=== PATIENT | male | born 1945 | race African-American/Black ===

== ENCOUNTER → 2016-12-18 | Outpatient (CLI) | payer MEDICARE ==
--- NOTE | 2016-12-18 16:03 | REP ---
LUMBAR SPINE, SEVEN VIEWS: HISTORY: Back pain. There is no acute fracture. The intervertebral discs are decreased in height. Vacuum phenomenon is present at the L5-S1 level. These findings are consistent with disc degeneration. Osteophytes are present on L2 through S1. There is narrowing of the L4-5 and L5-S1 facet joints. There are 5 mm of grade 1 spondylolisthesis of L4 on 5. IMPRESSION: Degenerative change as described above. Signed by Leandro Ch MD 12/18/2016 04:06 P
== END ==
LOC: M SMT 15:06
PROVIDERS: ATTEND Physician Assistant
DX: M51.36 Other intervertebral disc degeneration, lumbar region (principal)

== ENCOUNTER → 2016-12-26 | Outpatient (CLI) | payer MEDICARE, BC ==
[2016-12-26 13:38] LABS: BLOOD UREA NITROGEN 9 MG/DL (7-18); CREATININE FOR GFR 0.93 MG/DL (0.70-1.30); GLOMERULAR FILTRATION RATE > 60.0 (>42)
== END ==
LOC: M LAB 11:53
PROVIDERS: ATTEND Otolaryngology
DX: D37.01 Neoplasm of uncertain behavior of lip (principal)

== ENCOUNTER → 2017-01-02 | Outpatient (CLI) | payer MEDICARE, BC ==
[~2017-01-02] MED LIST: ISOVUE-370 76% 100ML VIAL (Q9967) As Ordered ONE
--- NOTE | 2017-01-02 17:13 | REP ---
CT NECK WITH CONTRAST: HISTORY: Neoplasm. CONTRAST: Isovue-370/75 mL. A well-circumscribed oval hypodense lesion of fat density is present in the soft-tissue along the buccal surface of the anterior right mandible. This is most consistent with a lipoma. The lipoma measures 1.7 cm in transverse x 1.1 cm in AP dimensions. The surrounding tissue planes are intact. Calcification is present in the left tonsil. This is secondary to previous inflammatory disease. The naso- and hypopharynx, larynx, and subglottic trachea are normal in appearance. The salivary glands are normal. The right thyroid lobe is heterogenous in density. The left thyroid lobe is normal. A lipoma is present in the posterior subcutaneous tissue overlying the left occipital bone. The lipoma measures 4.5 cm in tranverse x 1.9 cm in AP x 5.1 cm in cephalocaudal dimensions. Small lymph nodes less than 1 cm in size are present in the internal jugular chains, posterior triangles, submandibular and submental area. There is no adenopathy. Atherosclerotic calcifications is present at the left carotid bifurcation. Degenerative change is present in the cervical spine. The lung apices are clear. The visualized sinuses are clear. IMPRESSION: 1. There is an oval well-circumscribed mass consistent with a lipoma in the subcutaneous tissue along the buccal surface of the anterior right mandible. 2. There is a lipoma in the subcutaneous tissue overlying the left occipital bone. Signed by Leandro Ch MD 01/03/2017 08:28 A
== END ==
LOC: M RAD 16:11
PROVIDERS: ATTEND Otolaryngology
DX: D17.9 Benign lipomatous neoplasm, unspecified (principal)
CPT/HCPCS: 70491; Q9967

== ENCOUNTER → 2017-01-19 | Outpatient (CLI) | payer MEDICARE, BC ==
--- NOTE | 2017-01-19 17:04 | REP ---
MR LUMBAR SPINE WITHOUT AND WITH CONTRAST: HISTORY: Post-laminectomy syndrome. CONTRAST: ProHance 10 mL, decreased signal intensity on T2 weighted images is present in the lumbar vertebral discs. The discs are decreased in height. These findings are consistent with disc degeneration. There is no disc bulge or herniation at the L1-2 and L2-3 levels. The nerves exit the neural foramina without compression. A diffuse disc bulge is present at the L3-4 level. There is minimal compression of the thecal sac. There is hypertrophy of the posterior articulating facets. The L3 nerves exit the neural foramina without compression. A diffuse disc bulge is present at the L4-5 level. There is hypertrophy of the ligamenta flava and posterior articulating facets. There are 5 mm of grade 1 spondylolisthesis of L4 on 5. These findings produce mild central canal stenosis. The L4 nerves exit the neural foramina without compression. A diffuse disc bulge is present at the L5-S1 level. There is minimal compression of the thecal sac. There is hypertrophy of the posterior articulating facets. The L5 nerves exit the neural foramina without compression. The conus medullaris is normal in appearance terminating at the level of the L1-2 intervertebral discs. Increased signal intensity on T2 weighted images is present at the endplate of the L5-S1 vertebral bodies. There is minimal enhancement of the endplates and at the vertebral discs. This represents degenerative changes. There is atrophy of the posterior spinal musculature at the L4-S1 levels. IMPRESSION: 1. Diffuse disc bulge at the L3-4 level with minimal thecal sac compression. 2. Mild central canal stenosis at the L4-5 level secondary to disc bulge, ligamentous and facet hypertrophy. 3. Diffuse disc bulge at the L5-S1 level with minimal thecal sac compression. There is compression of the L5-nerves in the neural foramina. Unreviewed
== END ==
LOC: M RAD 14:14
PROVIDERS: ATTEND Nurse Practitioner Family
DX: M43.16 Spondylolisthesis, lumbar region (principal); M46.1 Sacroiliitis, not elsewhere classified; M54.16 Radiculopathy, lumbar region; M96.1 Postlaminectomy syndrome, not elsewhere classified; M47.817 Spondylosis without myelopathy or radiculopathy, lumbosacral region; M51.36 Other intervertebral disc degeneration, lumbar region
CPT/HCPCS: 72158; A9576

== ENCOUNTER → 2017-01-31 | Day surgery (SDC) | payer MEDICARE, BC ==
[~2017-01-31] VITALS: Ht 175.3 cm; Wt 83.9 kg
[~2017-01-31] MED LIST changes: +ACET-71 PO; +BACITRACIN OINT 30GM As Ordered ONE; +GLYCOPYRROLATE INJ 0.2 MG/ML 2 ML VIAL As Ordered ONE; -ISOVUE-370 76% 100ML VIAL (Q9967) As Ordered ONE; +LIDOCAINE 2% INJ 100 MG/5 ML SDV (FOR ANES.) As Ordered ONE; +LIDOCAINE W/EPINEPHRINE 1% 20ML VIAL As Ordered ONE; +LR 1,000 ML IV SCH; +METOCLOPRAMIDE INJ 10MG/2ML VIAL (J2765) IV PRN; +MIDAZOLAM INJ 2 MG/2 ML VIAL (J2250) As Ordered ONE; +NEOSTIGMINE 1MG/ML 5 ML SYRINGE (J2710) As Ordered ONE; +ONDANSETRON 4MG/2ML VIAL (J2405) As Ordered ONE; +ONDANSETRON 4MG/2ML VIAL (J2405) IV PRN; +PERCOCET 5MG/325MG TAB PO PRN; +PHENYLephrine HCL 500 MCG/5 ML (100MCG/ML) SYRINGE (J2370) As Ordered ONE; +PROPOFOL 200 MG/20 ML VIAL As Ordered ONE; +ROCURONIUM BROMIDE 50 MG/5 ML VIAL As Ordered ONE; +dexameTHASONE 4 MG/ML 1ML VIAL (J1100) IV ONE; +ePHEDrine SULFATE 25 MG/5 ML(5MG/ML) SYRINGE As Ordered ONE; +fentaNYL 100 MCG/2 ML INJECTION (J3010) As Ordered ONE; +fentaNYL 100 MCG/2 ML INJECTION (J3010) IV PRN
[2017-01-31 16:28] VITALS: BP 154/78
--- NOTE | 2017-02-01 21:47 | RO ---
DATE OF PROCEDURE: 01/31/2017 PREOPERATIVE DIAGNOSIS: Right lower lip mass and left occipital mass. POSTOPERATIVE DIAGNOSIS: Right lower lip mass and left occipital mass. OPERATIVE PROCEDURE: 1. Excision of the left occipital mass. 2. Excision of the right lower lip mass. SURGEON: Tod Verduzco MD WOODWORKING CRAFTSMAN: ANESTHESIA: General. CLINICAL PREAMBLE: This 72-year-old man presented to the office complaining of a soft mobile mass on the inner aspect of the right lower lip that had been present for several months. CT scan of the neck confirmed presence of mass in the right lower lip as well as in the left occipital area most consistent with lipoma. Management options including surgery listed above have been discussed. The patient understood and consented to the procedure. DESCRIPTION OF OPERATION: The patient was identified in preholding and the right lower lip and the left occipital area marked. He was brought to the operating room in stable condition. In supine position on the operating room table, the patient received general anesthesia followed orotracheal intubation without incident. The patient was prepped and draped in the usual fashion for the procedure. The patient's body was then turned to the right side to expose the left occipital area. Precaution was taken to ensure padding around the head and neck as well as the rest of the torso area to avoid unnecessary pressure. The hair was then removed from the left occipital area. The left neck and the occiput area were then prepped and draped in the usual fashion for the procedure. A curvilinear incision was then fashioned over the left occipital mass area following a natural skin crease superior to the hairline. Dissection was then carried down to the subcutaneous plane where the lipomatous mass was encountered. Careful dissection was carried around the capsule of the lipoma to ensure block incision. Hemostasis was achieved. The wound was then closed in two layers. #4-0 Vicryl was used to close the deep layer of the wound to minimize the amount of space. The final skin closure was achieved using 4-0 Prolene suture. Bacitracin was then applied to the incision site followed by application of the Telfa dressing. The patient was then repositioned into a supine position to approach the right lower lip mass lesion. The right lower lip was everted. The mass was palpated. The mucosa overlying the mass then infiltrated with 1% lidocaine with 1:100,000 epinephrine. Mucosal incision was made. The lipomatous capsule was identified and carefully dissected out en bloc. Hemostasis was achieved using bipolar electrocautery. The deep layer was then closed using #4-0 Monocryl. The final mucosal incision was achieved using #4-0 Monocryl using the tapered needle as well. At the end of the procedure, sponge and instruments counts were correct. No complication was encountered. Estimated blood loss was less than 5 mL. General anesthesia was reversed and the patient was extubated and brought to the recovery room in stable condition.
== END | disposition home or self-care (01) ==
LOC: M SDC 09:50
PROVIDERS: ATTEND Otolaryngology
DX: D17.0 Benign lipomatous neoplasm of skin and subcutaneous tissue of head, face and neck (principal)
CPT/HCPCS: 21012; 88304; 88305; J1100; J2250; J2370; J2405; J2710; J3010

== ENCOUNTER 2017-12-26 13:36 | Outpatient (RCR) | payer MEDICARE, BC | END 2018-01-09 | LOC: M ST 13:36 | DX: Z51.89 Encounter for other specified aftercare (principal); R49.0 Dysphonia | CPT/HCPCS: 92524 ==

== ENCOUNTER 2018-01-11 14:22 | Outpatient (RCR) | payer MEDICARE, BC | END 2018-02-09 | LOC: M ST 14:22 | DX: Z51.89 Encounter for other specified aftercare (principal); R49.0 Dysphonia | CPT/HCPCS: 92507 ==

== ENCOUNTER → 2019-03-19 | Outpatient (CLI) | payer MEDICARE ==
[~2019-03-19] MED LIST changes: -ACET-71 PO; +ACET1TAB16 PO; -BACITRACIN OINT 30GM As Ordered ONE; -GLYCOPYRROLATE INJ 0.2 MG/ML 2 ML VIAL As Ordered ONE; -LIDOCAINE 2% INJ 100 MG/5 ML SDV (FOR ANES.) As Ordered ONE; -LIDOCAINE W/EPINEPHRINE 1% 20ML VIAL As Ordered ONE; -LR 1,000 ML IV SCH; -METOCLOPRAMIDE INJ 10MG/2ML VIAL (J2765) IV PRN; -MIDAZOLAM INJ 2 MG/2 ML VIAL (J2250) As Ordered ONE; -NEOSTIGMINE 1MG/ML 5 ML SYRINGE (J2710) As Ordered ONE; -ONDANSETRON 4MG/2ML VIAL (J2405) As Ordered ONE; -ONDANSETRON 4MG/2ML VIAL (J2405) IV PRN; -PERCOCET 5MG/325MG TAB PO PRN; -PHENYLephrine HCL 500 MCG/5 ML (100MCG/ML) SYRINGE (J2370) As Ordered ONE; -PROPOFOL 200 MG/20 ML VIAL As Ordered ONE; -ROCURONIUM BROMIDE 50 MG/5 ML VIAL As Ordered ONE; -dexameTHASONE 4 MG/ML 1ML VIAL (J1100) IV ONE; -ePHEDrine SULFATE 25 MG/5 ML(5MG/ML) SYRINGE As Ordered ONE; -fentaNYL 100 MCG/2 ML INJECTION (J3010) As Ordered ONE; -fentaNYL 100 MCG/2 ML INJECTION (J3010) IV PRN
[2019-03-19 10:47] LABS: BASO % 0.3 % (0.0-1.0); EOS # 0.4 10^3/uL (0.0-0.50); EOS % 5.8 % (0.0-3.0); HEMATOCRIT 48.6 % (42.0-52.0); HEMOGLOBIN 16.5 g/dl (13.5-17.5); LYMPH # 1.8 10^3/uL (1.5-4.5); LYMPH % 29.2 % (24.0-44.0); MEAN CORPUSCULAR HEMOGLOBIN 31.9 pg (27.0-33.0); MONO # 0.6 10^3/uL (0.0-0.8); NEUTROPHILS # 3.3 10^3/uL (1.8-7.7); NEUTROPHILS % 54.5 % (36.0-66.0); PLATELET COUNT, AUTOMATED 281 10^3/uL (150-450); RED BLOOD COUNT 5.17 10^6/uL (4.30-6.10)
[2019-03-19 11:14] LABS: ALBUMIN 4.2 GM/DL (3.2-5.2); ALT/SGPT 20 U/L (12-78); BILIRUBIN,TOTAL 1.4 MG/DL (0.2-1.0); BLOOD UREA NITROGEN 11 MG/DL (7-18); CALCIUM LEVEL 10.8 MG/DL (8.8-10.2); CARBON DIOXIDE LEVEL 30 MEQ/L (21-32); CHLORIDE LEVEL 104 MEQ/L (98-107); CHOLESTEROL LEVEL 210 MG/DL (<200); CHOLESTEROL RISK RATIO 3.134 (<5); CREATININE FOR GFR 0.96 MG/DL (0.70-1.30); FREE T4 1.16 NG/DL (0.76-1.46); GLOMERULAR FILTRATION RATE > 60.0 (>42); GLUCOSE, FASTING 87 MG/DL (70-100); HDL CHOLESTEROL 67 MG/DL (>40); LDL CHOLESTEROL 117 MG/DL (<100); NON-HDL-C 143 MG/DL; POTASSIUM SERUM 4.3 MEQ/L (3.5-5.1); SODIUM LEVEL 137 MEQ/L (136-145); TRIGLYCERIDES LEVEL 128 MG/DL (<150)
[2019-03-19 12:04] LABS: HEMOGLOBIN A1c 5.9 %
== END ==
LOC: M LAB 10:04
PROVIDERS: ATTEND Physician Assistant
DX: Z00.00 Encounter for general adult medical examination without abnormal findings (principal); K21.0 Gastro-esophageal reflux disease with esophagitis; E55.9 Vitamin D deficiency, unspecified; K26.9 Duodenal ulcer, unspecified as acute or chronic, without hemorrhage or perforation; E78.00 Pure hypercholesterolemia, unspecified
CPT/HCPCS: 36415; 80053; 80061; 82652; 83036; 84439; 84443; 85025; G0103

== ENCOUNTER 2019-10-25 20:18 | Emergency (ER) | payer MEDICARE ==
[~2019-10-25] VITALS: Ht 175.3 cm; Wt 81.8 kg
[2019-10-25] MEDS ORDERED: NITROGLYCERIN 0.4 MG SUBL TABLET SL PRN (20:30)
[2019-10-25] MEDS ORDERED: HEPARIN DRIP 25,000 UNITS in IV 1 EA IV SCH (20:35)
[2019-10-25 20:39] LABS: BASO % 0.3 % (0.0-1.0); EOS # 0.5 10^3/uL (0.0-0.5); EOS % 7.3 % (0.0-3.0); HEMATOCRIT 50.7 % (42.0-52.0); HEMOGLOBIN 16.9 g/dl (13.5-17.5); LYMPH # 1.6 10^3/uL (1.5-5.0); MEAN CORPUSCULAR HEMOGLOBIN 31.8 pg (27.0-33.0); MEAN CORPUSCULAR HGB CONC 33.3 g/dl (32.0-36.5); MEAN CORPUSCULAR VOLUME 95.3 fl (80.0-96.0); MONO # 0.6 10^3/uL (0.0-0.8); MONO % 9.1 % (0.0-5.0); NEUTROPHILS # 3.6 10^3/uL (1.5-8.5); PLATELET COUNT, AUTOMATED 289 10^3/uL (150-450); RED BLOOD COUNT 5.32 10^6/uL (4.30-6.10); WHITE BLOOD COUNT 6.3 10^3/uL (4.0-10.0)
[2019-10-25] MEDS ORDERED: TENECTEPLASE 50 MG KIT (TNKase) (J3101 PER 1MG) IV ONE (20:45)
[2019-10-25] MEDS ORDERED: CLOPIDOGREL 300 MG TAB (PLAVIX) PO ONE (20:45)
[2019-10-25] MEDS ORDERED: HEPARIN SOD (PORCINE) 5000 UNITS/ML VIAL IV ONE (20:45)
[2019-10-25 20:48] LABS: INR 1.01; PROTHROMBIN TIME 13.1 SECONDS (11.8-14.0)
[2019-10-25 21:04] LABS: ALBUMIN 3.7 GM/DL (3.2-5.2); BILIRUBIN,DIRECT 0.2 MG/DL (0.0-0.2); BILIRUBIN,TOTAL 1.1 MG/DL (0.2-1.0); CK-MB VALUE MASS 2.6 NG/ML (<3.6); MB/CK RELATIVE INDEX 1.02 (< OR =4); TOTAL PROTEIN 7.1 GM/DL (6.4-8.2); TROPONIN I 0.2 NG/ML (< 0.10)
[2019-10-25 21:08] VITALS: BP 152/95
[2019-10-25] MEDS: MORPHINE 2 MG/ML 1ML VIAL (J2270) IV PRN ×2 (21:09→21:34)
[2019-10-25] MEDS ORDERED: NITROGLYCERIN/D5W 100MCG/ML 25 MG in IV 1 EA IV SCH (21:13)
[2019-10-25] MEDS ORDERED: NITROGLYCERIN 2% OINT 1 GM *U/D* PKT TOP ONE (21:15)
[2019-10-25] MEDS ORDERED: NITROGLYCERIN IN D5W 25MG/250ML (100MCG/ML) As Ordered ONE (21:16)
[2019-10-25 21:41] VITALS: BP 113/72
--- NOTE | 2019-10-26 08:50 | REP ---
Portable chest x-ray: Sitting AP view. History: Chest pain. Findings: Monitoring electrodes are seen. The lungs are well inflated and free of infiltrate. Linear fibrosis is seen in the right base. There is a pleural line in the left perihilar region. There are degenerative changes in the thoracic spine. Heart size is normal. No infiltrate is seen. Impression: Linear fibrosis right base. No acute disease. Electronically Signed by Ángel Tillman MD 10/26/2019 08:42 A
--- NOTE | 2019-10-27 00:34 | ECGEPIP ---
[facility] - ED Test Date: 2019-10-25 Pat Name: LEA BURNS Department: Room: - Gender: Male Hall Director: edgar : 1945 Requested By: ADAN Carrera Order Number: [id number] Reading MD: Adan Jo Measurements Intervals [place] Rate: 82 P: 51 NH: 210 QRS: 43 QRSD: 96 T: -7 QT: 322 QTc: 377 Interpretive Statements SINUS RHYTHM WITH SINUS ARRHYTHMIA WITH FIRST DEGREE AV BLOCK ST ELEVATION, CONSIDER LATERAL INJURY ACUTE ME Electronically Signed on 10-27-2019 0:33:32 EST by Adan Jo
== END 2019-10-25 21:45 | disposition short-term general hospital (02) ==
LOC: M ED 20:18
DX: I21.3 ST elevation (STEMI) myocardial infarction of unspecified site (principal); I44.0 Atrioventricular block, first degree; E78.5 Hyperlipidemia, unspecified; Z82.49 Family history of ischemic heart disease and other diseases of the circulatory system
CPT/HCPCS: 71045; 80047; 80076; 82550; 82553; 83690; 84484; 85025; 85610; 93005; 93041; 94760; 96374; 96375; 99285; J2270; J3101

== ENCOUNTER 2019-12-10 14:04 | Outpatient (RCR) | payer OTHER ==
--- NOTE | 2019-12-05 13:49 | CARECAPL ---
Assessment Account #s: Initial Assessment General Diagnoses: Stent, STEMI Date of event: Oct 26, 2019 Physician: Anel Lau MD Allergies: Coded Allergies: No Known Allergies (Unverified , 11/17/19) Risk strat for cardiac event: High Exercise Assessment: Initial Assessment Stages of change: Pre-contemplation Exercise Prescription Plan Educate on cardiovascular disease and increase strength, endurance and flexibility through a monitored exercise program. Modalities initiated: Treadmill (will add 2.0 miles per hour for 10 minutes), Nustep (will add resistance of 1 for 10 minutes.), Arm Aerometer (will add resistance of 1 for 6 minutes), Dumbells (will add 1lb 1 set reps 8), Recumbent Bike (will add resistance of 1 for 5 minutes) Frequency: 2-3 Duration (Minutes) 30 - 60 minutes total exercise a day. 15 - 20 work intervals in minutes. PRN rest intervals in minutes. Functional Capacity Goal Sustained Metabolic Equivalent of a task (MET) goal of 2.5-3.5 for 15-20 minutes. Intensity: 3-Moderate Progression (METS) Increase by: 0.5 METS every: 3-5 sessions Angina with ex: No Target Heart Rate Rest +35-40 per beta luisa therapy. Resistance Training: Yes Weight (pounds): 1 Reps: 6-8 Medications Scheduled Aspirin (Aspirin), 81 MG PO DAILY, (Reported) Atorvastatin Calcium (Atorvastatin Calcium), 40 MG PO DAILY, (Reported) Cholecalciferol (Vitamin D3) (Vitamin D3), 2,000 UNIT PO DAILY, (Reported) Clopidogrel Bisulfate (Clopidogrel), 75 MG PO DAILY, (Reported) Folic Acid (Folic Acid), 1 MG PO DAILY, (Reported) Metoprolol Tartrate (Metoprolol Tartrate), 25 MG PO DAILY, (Reported) Pantoprazole Sodium (Pantoprazole Sodium), 40 MG PO DAILY, (Reported) Thiamine Mononitrate (Vit B1) (Vitamin B-1), 100 MG PO DAILY, (Reported) Scheduled PRN Acetaminophen (Acetaminophen), 500 MG PO Q6H PRN for PAIN, (Reported) Albuterol Sulfate (Ventolin Hfa), 2 PUFFS INH PRN PRN for WHEEZING, (Reported) Calcium Carbonate (Calcium), 500 MG PO Q4HP PRN for INDIGESTION, (Reported) Melatonin (Melatonin), 1 MG PO QHSP PRN for SLEEP, (Reported) Tetrahydrozoline Hcl (Visine), 1 DROP OP Q4HP PRN for DRY EYES, (Reported) Discontinued Medications Acetaminophen with Codeine (Tylenol with Codeine #3 Tablet), 1 TAB PO for PAIN, (Reported) Discontinued Reason: PCP discontinued med [Keto Pills], 2 CAP PO DAILY, (Reported) Discontinued Reason: PCP discontinued med Education Goals Met: No Target Goals Individual exercise Rx (1) BP 140/90 or 130/80 if DM or CKD (1) Aerobic active 30+min 5 days per week (1) Nutrition Date: Dec 05, 2019 Assessment: Initial Assessment Stages of change: Pre-contemplation Lipids Total Cholesterol (210), High Density Lipids (HDL) (67), Low Density Lipids (LDL) (117), Triglycerides (128), Duration (3.134) Lipid- med/supplement Atorvastatin 40 mg Diabetes Diabetes: Yes (diet controlled) HbA1c (%): 5.9 Diabetes medication Patient is diet controlled Monitor Blood Sugar at home: No Weight Management Weight (lbs): 181.4 Height (inches): 70 Waist Circumference (Inches): 37 BMI: 25.97 Special Diet: low salt, low-fat Vitamin/Supplements: Vitamin B Alcohol: daily Alcohol Type: beer Alcohol Amount: 2-3 Diet Access Tool: Rate your plate Score: 48 Referral to Diabetes education: No Referral to lipid clinic: No Referral to weight mangement p: No Education Goals Met: No Target goal LDL-C<100 if triglycerides are >200 Non-HDL-C should be <130 (1) LDL-C<70 for high risk patients (4) HbA1c<7% (1) BMI<25 Waist cir<40in M/<35in F (1) Education Date: Dec 05, 2019 Assessment: Initial Assessment Knowledge Test Score: 8 Stages of change: Pre-contemplation Family Support: Yes Tobacco use: No Quit: never smoked Education Goals Met: No Target Goals Complete cessation of tobacco use (1). Psychosocial Date: Dec 05, 2019 Assessment: Initial Assessment Psych Test (Initial/Discharge) Tool Used: Other (PHQ-9) Score: 11 (Dr. Helton made aware of score) Stages of change: Pre-contemplation Intervention Physician Consult: No Physician Referral: No Education Goals Met: No Target Goal Assess presence or absence of depression using a valid screening tool (1). Maximize coping skills (2). Positive support system (2). Patient/Program Goal Preventative Medication: Yes Aspirin, Yes Clopidogrel, Yes Beta blockade, Yes Statin/OTR lipid Lowering Fall Risk Assess: Yes (no fall risk) Assisstive Device: cane (uses the cane when his sciatic nerve is irritated.) Provider Assessment Provider Assessment: Proceed with rehab Rebeca Nix RN Dec 05, 2019 13:49
[~2019-12-10 14:04] MED LIST changes: +ACET-683 PO; +ASPI1CHW2 PO; +ATOR40TA75 PO; +CALC500C16 PO; +CLOP75TA2 PO; +FOLI1TAB11 PO; +MELA1LIQ2 PO; +METO25TA4 PO; +PANT40TA3 PO; +TYLETAB14 PO; +VENTAER INH; +VISI0.054 OP; +VITA100054 PO; +VITA100T28 PO; +[UNRECOGNIZED DRUG - REMARK] PO
== END 2019-12-12 ==
LOC: M CR 14:04
PROVIDERS: ATTEND Internal Medicine Cardiovascular Disease
DX: Z98.61 Coronary angioplasty status (principal)

== ENCOUNTER 2020-01-05 15:00 | Outpatient (RCR) | payer OTHER ==
[2019-12-26 16:04] VITALS: BP 114/70
[2019-12-26 16:06] VITALS: BP 160/90
[2019-12-26 16:07] VITALS: BP 110/80
--- NOTE | 2019-12-29 10:36 | CARECAPL ---
Assessment Account #s: Re-Assessment I General Diagnoses: Stent, STEMI Date of event: Oct 26, 2019 Physician: Anel Lau MD Allergies: Coded Allergies: No Known Allergies (Unverified , 11/17/19) Date Entered Program: Dec 10, 2019 Risk strat for cardiac event: High Exercise Date: Dec 29, 2019 Assessment: Re-Assessment I Stages of change: Contemplate Exercise Prescription Plan TO EDUCATE AND BUILD ENDURANCE THROUGH MONITORED EXERCISE PROGRAM Modalities initiated: Treadmill (METS=2.99/RPE=2), Nustep (METS=2.4/RPE=2), Arm Aerometer (METS=2.4/RPE=2), Dumbells (1#/RPE=2), Recumbent Bike (METS=3.2/RPE=2) Frequency: 3 Duration (Minutes) 30 - 60 minutes total exercise a day. 15 - 20 work intervals in minutes. PRN rest intervals in minutes. Functional Capacity Goal Sustained Metabolic Equivalent of a task (MET) goal of 2.5-3.5 for 15-20 minutes. Intensity: 3-Moderate Progression (METS) Increase by: 0.5 METS every: 5 sessions TOLERATED Angina with ex: No Target Heart Rate REST +35-40 Resistance Training: Yes Weight (pounds): 1 Reps: 8-12 Hypertension: No Resting 114/70 Peak Exercise BP 160/90 Medications Scheduled Aspirin (Aspirin), 81 MG PO DAILY, (Reported) Atorvastatin Calcium (Atorvastatin Calcium), 40 MG PO DAILY, (Reported) Cholecalciferol (Vitamin D3) (Vitamin D3), 2,000 UNIT PO DAILY, (Reported) Clopidogrel Bisulfate (Clopidogrel), 75 MG PO DAILY, (Reported) Folic Acid (Folic Acid), 1 MG PO DAILY, (Reported) Metoprolol Tartrate (Metoprolol Tartrate), 25 MG PO DAILY, (Reported) Pantoprazole Sodium (Pantoprazole Sodium), 40 MG PO DAILY, (Reported) Thiamine Mononitrate (Vit B1) (Vitamin B-1), 100 MG PO DAILY, (Reported) Scheduled PRN Acetaminophen (Acetaminophen), 500 MG PO Q6H PRN for PAIN, (Reported) Albuterol Sulfate (Ventolin Hfa), 2 PUFFS INH PRN PRN for WHEEZING, (Reported) Calcium Carbonate (Calcium), 500 MG PO Q4HP PRN for INDIGESTION, (Reported) Melatonin (Melatonin), 1 MG PO QHSP PRN for SLEEP, (Reported) Tetrahydrozoline Hcl (Visine), 1 DROP OP Q4HP PRN for DRY EYES, (Reported) Current BP 110/80 Med Change: No Intervention Home exercise: Type (WALKING,HOME EXERCISE EQUIPMENT,HAND WEIGHTS, JOIN LOCAL GYM), Frequency (3-5 DAYS PER WEEK), Duration (30-60 MINUTES) Resistance Training: Yes Education: Self pulse (INSTRUCTED PATIENT TO TAKE HIS OWN PULSE, REINFORCEMENT WILL BE NECESSARY), Ex safety (PATIENT VERBALIZES UNDERSTANDING OF IMPORTANCE OF WARM UP/ COOL DOWN, STAYING HYDRATED, COMFORTABLE SHOES), S/S to report (PATIENT VERBALIZES UNDERSTANDING TO REPORT CHEST PAIN, CHEST PRESSURE, SOB OR ANY OTHER PAIN DURING EXERCISE), Low NA diet (PATIENT VERBALIZES UNDERSTANDING THAT HE IS TO AVOID SALT IN HIS DIET DUE TO HIS CARDIAC DISEASE), BP medication (REVIEWED B/P MEDICATIONS, METOPROLOL AND REVIEWED ACTIONS/USES AND IMPORTANCE OF MEDICATION COMPLIANCE), RPE Scale (REVIEWED RPE SCALE OF DIFFICULTY FOR EACH PIECE OF EQUIPMENT), Equipment orientation (ORIENTED TO EACH PIECE OF EQUIPMENT USED), warm up/cool down (DEMONSTRATES INDEPENDENTLY WARM UP AND COOL DOWN PRIOR TO AND FOLLOWING EXERCISE), Understand BP (DISCUSSED IDEAL B/P OF <130/80 COMPARED TO HIS B/P), Physical Active (PATIENT VERBALIZES UNDERSTANDING OF IMPORTANCE OF CONTINUED EXERCISE PROGRAM FOLLOWING CARDIAC REHAB) Education Goals Met: No (PROGRESSING TOWARD GOALS) Target Goals Individual exercise Rx (1) BP 140/90 or 130/80 if DM or CKD (1) Aerobic active 30+min 5 days per week (1) Nutrition Date: Dec 29, 2019 Assessment: Re-Assessment I Stages of change: Contemplate Lipid- med/supplement ATORVASTATIN Med Change: No Diabetes Diabetes: Yes (DIET CONTROLLED, DOES NOT CHECK FSBS AT HOME) Monitor Blood Sugar at home: No Medication Change: No Weight Management Weight (lbs): 181.4 Special Diet: low salt, low-fat Vitamin/Supplements: Vitamin B, Vitamin D Intervention Invertebrate Paleontologist Consult: No Nurse/patient discussion: Yes Dietary Goals TO MAKE HEART HEALTHY CHOICES, SMALLER PORTIONS Diet Class: Yes (WILL SEE LINE CONSTRUCTION SUPERINTENDENT WHILE IN PROGRAM) Referral to Diabetes education: No Referral to lipid clinic: No Referral to weight mangement p: No Education Eating Healthy Education Goals Met: No (PROGRESSING TOWARD GOALS) Target goal LDL-C<100 if triglycerides are >200 Non-HDL-C should be <130 (1) LDL-C<70 for high risk patients (4) HbA1c<7% (1) BMI<25 Waist cir<40in M/<35in F (1) Education Date: Dec 29, 2019 Assessment: Re-Assessment I Learning Barriers: ready Stages of change: Contemplate Family Support: Yes Tobacco use: No Tobacco Use Smokeless tobacco: No Intervention Referral to smoking cessation: No Individual education and couns: No Tobacco Adjunct: No Education class schedule given: No Attended education classes: No Education: CAD (PATIENT IS AWARE THAT ELEVATED CHOLESTEROL CLOGS ARTERIES THUS CAUSING CAD), Risk factors (PATIENT AWARE THAT BEING OVERWEIGHT, DIABETES, AND ELEVATED CHOLERSTEROL ARE RISK FACTORS FOR CAD), med compliance (DISCUSSED IMPORTANCE OF MEDICATON COMPLIANCE), cardiac A&P (REVIEWED WITH PATIENT HOW HEART FUNCTIONS WITH KRAMES EDUCATION HANDOUTS, REINFORCEMENT WILL BE NEEDED), Angina S/S (PATIENT VERBALIZES UNDERSTANDING OF ANGINA S/S SUCH SOB, CHEST PAIN OR PRESSURE), Sexuality (PATIENT STATES WITH PERMISSION FROM MD BEFORE BEING SEXUALLY ACTIVE) Education Goals Met: No (PROGRESSING TOWARD GOALS) Target Goals Complete cessation of tobacco use (1). Psychosocial Date: Dec 29, 2019 Assessment: Re-Assessment I Stages of change: Contemplate Intervention Physician Consult: No Physician Referral: No Med Change: No Stress Management Class: No Uses Stress Management Skills: Yes Education Education: Coping Techniques (DISCUSSED COPING MEASURES SUCH TAKING TIME FOR SELF, EXERCISE, TALKING TO FRIENDS AND FAMILY ), S/S depression (REVIEWED S/S OF DEPRESSION SUCH WITHDRAWAL, LACK OF INTEREST, LACK OF APPETITE, SECLUSION), Relaxation Techniques (DISCUSSED WAYS TO RELAX SUCH READING,MUSIC,EXERCISE,HOBBIES) Education Goals Met: No (PROGRESSING TOWARD GOALS) Target Goal Assess presence or absence of depression using a valid screening tool (1). Maximize coping skills (2). Positive support system (2). Patient/Program Goal Preventative Medication: Yes Aspirin, Yes Clopidogrel, Yes Beta blockade, Yes Statin/OTR lipid Lowering Fall Risk Assess: Yes (NOT A FALL RISK) Provider Assessment Session Number: 3 Provider Assessment: Proceed with rehab Tom Mckeon RN Dec 29, 2019 10:36
[2020-01-02 13:33] VITALS: BP 110/78
[2020-01-02 14:41] VITALS: BP 146/84
[2020-01-02 15:12] VITALS: BP 108/70
[~2020-01-05] VITALS: Ht 180.3 cm; Wt 82.8 kg
[2020-01-05 13:39] VITALS: BP 120/74
[2020-01-05 14:15] VITALS: BP 160/80
[2020-01-05 15:26] VITALS: BP 122/70
== END 2020-01-10 ==
LOC: M CR 15:00
PROVIDERS: ATTEND Internal Medicine Cardiovascular Disease
DX: Z98.61 Coronary angioplasty status (principal)

== ENCOUNTER → 2020-01-06 | Outpatient (REF) | payer OTHER ==
[2020-01-06 15:45] LABS: BLOOD UREA NITROGEN 17 MG/DL (7-18); CREATININE FOR GFR 0.94 MG/DL (0.70-1.30); GLOMERULAR FILTRATION RATE > 60.0 (>42)
== END ==
LOC: M LABDRAW1 14:19
PROVIDERS: ATTEND Physical Medicine & Rehabilitation
DX: M48.061 Spinal stenosis, lumbar region without neurogenic claudication (principal)

== ENCOUNTER 2020-01-12 14:49 | Outpatient (RCR) | payer OTHER ==
[~2020-01-12] VITALS: Ht 177.8 cm; Wt 86.0 kg
[2020-01-12 02:09] VITALS: BP 108/76
[2020-01-12 15:00] VITALS: BP 160/90
[2020-01-12 15:46] VITALS: BP 102/60
--- NOTE | 2020-01-19 14:39 | CARECAPL ---
Assessment Account #s: Re-Assessment II General Diagnoses: Stent, STEMI Date of event: Oct 26, 2019 Physician: Anel Lau MD Allergies: Coded Allergies: No Known Allergies (Unverified , 11/17/19) Date Entered Program: Dec 10, 2019 Risk strat for cardiac event: High Exercise Date: Jan 19, 2020 Assessment: Re-Assessment II Stages of change: Contemplate Exercise Prescription Modalities initiated: Treadmill (2.7/2.5 15 MINUTES MTS 4.19 RPE 3), Nustep (L5 15 MINUTES MTS 6.2 RPE 3), Arm Aerometer (3.0 10 MINUTES MTS 2.1 RPE 2), Dumbells, Recumbent Bike (R4 10 MINUTES MTS 4.3 RPE 2) Frequency: 1-2 Duration (Minutes) 30 - 60 minutes total exercise a day. 15 - 20 work intervals in minutes. PRN rest intervals in minutes. Functional Capacity Goal Sustained Metabolic Equivalent of a task (MET) goal of 4.5-5.5 for 15 minutes. Intensity: 3-Moderate Progression (METS) Increase by: METS every: sessions Angina with ex: No Resistance Training: Yes Weight (pounds): 2 Reps: 8-12 Hypertension: Yes Hypertension controlled with: Medication Resting 108/76 Peak Exercise BP 160/90 Medications Scheduled Aspirin (Aspirin), 81 MG PO DAILY, (Reported) Atorvastatin Calcium (Atorvastatin Calcium), 40 MG PO DAILY, (Reported) Cholecalciferol (Vitamin D3) (Vitamin D3), 2,000 UNIT PO DAILY, (Reported) Clopidogrel Bisulfate (Clopidogrel), 75 MG PO DAILY, (Reported) Folic Acid (Folic Acid), 1 MG PO DAILY, (Reported) Metoprolol Tartrate (Metoprolol Tartrate), 25 MG PO DAILY, (Reported) Pantoprazole Sodium (Pantoprazole Sodium), 40 MG PO DAILY, (Reported) Thiamine Mononitrate (Vit B1) (Vitamin B-1), 100 MG PO DAILY, (Reported) Scheduled PRN Acetaminophen (Acetaminophen), 500 MG PO Q6H PRN for PAIN, (Reported) Albuterol Sulfate (Ventolin Hfa), 2 PUFFS INH PRN PRN for WHEEZING, (Reported) Calcium Carbonate (Calcium), 500 MG PO Q4HP PRN for INDIGESTION, (Reported) Melatonin (Melatonin), 1 MG PO QHSP PRN for SLEEP, (Reported) Tetrahydrozoline Hcl (Visine), 1 DROP OP Q4HP PRN for DRY EYES, (Reported) Current BP 102/60 Med Change: No Education Goals Met: No (PROGRESSING TOWARD GOALS) Target Goals Individual exercise Rx (1) BP 140/90 or 130/80 if DM or CKD (1) Aerobic active 30+min 5 days per week (1) Nutrition Date: Jan 19, 2020 Assessment: Re-Assessment II Stages of change: Contemplate Current Weight (pounds): 189.2 Education Goals Met: No (PROGRESSING TOWARD GOALS) Target goal LDL-C<100 if triglycerides are >200 Non-HDL-C should be <130 (1) LDL-C<70 for high risk patients (4) HbA1c<7% (1) BMI<25 Waist cir<40in M/<35in F (1) Education Date: Jan 19, 2020 Assessment: Re-Assessment II Intervention Tobacco Adjunct: No Education class schedule given: No Education Goals Met: Yes Target Goals Complete cessation of tobacco use (1). Psychosocial Date: Jan 19, 2020 Assessment: Re-Assessment II Stress Management Class: Yes Uses Stress Management Skills: Yes Education Goals Met: Yes Target Goal Assess presence or absence of depression using a valid screening tool (1). Maximize coping skills (2). Positive support system (2). Provider Assessment Session Number: 6 Provider Assessment: No changes (POOR ATTENDANCE) Cyndi Martins RN Jan 19, 2020 14:39
--- NOTE | 2020-01-30 13:00 | CARECAPL ---
General Allergies: Coded Allergies: No Known Allergies (Unverified , 11/17/19) Exercise Prescription Duration (Minutes) 30 - 60 minutes total exercise a day. 15 - 20 work intervals in minutes. PRN rest intervals in minutes. Functional Capacity Goal Sustained Metabolic Equivalent of a task (MET) goal of for minutes. Progression (METS) Increase by: METS every: sessions Medications Scheduled Aspirin (Aspirin), 81 MG PO DAILY, (Reported) Atorvastatin Calcium (Atorvastatin Calcium), 40 MG PO DAILY, (Reported) Cholecalciferol (Vitamin D3) (Vitamin D3), 2,000 UNIT PO DAILY, (Reported) Clopidogrel Bisulfate (Clopidogrel), 75 MG PO DAILY, (Reported) Folic Acid (Folic Acid), 1 MG PO DAILY, (Reported) Metoprolol Tartrate (Metoprolol Tartrate), 25 MG PO DAILY, (Reported) Pantoprazole Sodium (Pantoprazole Sodium), 40 MG PO DAILY, (Reported) Thiamine Mononitrate (Vit B1) (Vitamin B-1), 100 MG PO DAILY, (Reported) Scheduled PRN Acetaminophen (Acetaminophen), 500 MG PO Q6H PRN for PAIN, (Reported) Albuterol Sulfate (Ventolin Hfa), 2 PUFFS INH PRN PRN for WHEEZING, (Reported) Calcium Carbonate (Calcium), 500 MG PO Q4HP PRN for INDIGESTION, (Reported) Melatonin (Melatonin), 1 MG PO QHSP PRN for SLEEP, (Reported) Tetrahydrozoline Hcl (Visine), 1 DROP OP Q4HP PRN for DRY EYES, (Reported) Target Goals Individual exercise Rx (1) BP 140/90 or 130/80 if DM or CKD (1) Aerobic active 30+min 5 days per week (1) Target goal LDL-C<100 if triglycerides are >200 Non-HDL-C should be <130 (1) LDL-C<70 for high risk patients (4) HbA1c<7% (1) BMI<25 Waist cir<40in M/<35in F (1) Target Goals Complete cessation of tobacco use (1). Target Goal Assess presence or absence of depression using a valid screening tool (1). Maximize coping skills (2). Positive support system (2). Provider Assessment Provider Assessment: No changes ([facility] closed due to COVID-19, patient account to be put on hold) Tom Mckeon RN Jan 30, 2020 13:00
== END 2020-02-10 ==
LOC: M CR 14:49
PROVIDERS: ATTEND Internal Medicine Cardiovascular Disease
DX: Z98.61 Coronary angioplasty status (principal)

== ENCOUNTER → 2020-04-11 | Outpatient (CLI) | payer OTHER | LOC: M LABSMTC 10:56 | PROVIDERS: ATTEND Anesthesiology | DX: Z11.59 Encounter for screening for other viral diseases (principal) | CPT/HCPCS: C9803; U0003 ==

== ENCOUNTER → 2020-04-14 | Outpatient (CLI) | payer OTHER ==
[~2020-04-14] MED LIST changes: +BUPIVACAINE HCL 0.25% 10ML VIAL As Ordered ONE; +BUPIVACAINE HCL 0.25% 30ML VIAL As Ordered ONE
--- NOTE | 2020-04-15 00:55 | ECWPNPC ---
PATIENT NAME: LEA BURNS : 1945 GENDER: MALE VISIT DATE: 04/14/2020 DISCHARGE DATE: 04/14/20 1454 VISIT LOCKED DATE TIME: PHYSICIAN: BIA DAVIS MD RESOURCE: BIA DAVIS MD REASON FOR APPOINTMENT 1. TRIGGER POINT INJECTIONS HISTORY OF PRESENT ILLNESS GENERAL: 75-YEAR-OLD MALE PATIENT WITH A HISTORY OF CHRONIC LOW BACK AND LEG PAIN. THE PATIENT DESCRIBES THE PAIN ACHING AND SEVERE WITH A PAIN SCORE RANGING FROM 6-9/10 DEPENDING ON PHYSICAL ACTIVITY. THE PATIENT HAD A BACK OPERATION DONE IN 2010. HE STATES THAT HE HAD PAIN DOWN HIS LEG BEFORE THE OPERATION AND AFTER THE OPERATION, THE PAIN GOT BETTER. THE PATIENT STATES NOW THAT THE PAIN DOWN HIS LEG HAS COME BACK. THE PATIENT STATES THAT THE PAIN IS MOSTLY IN HIS LEFT LOWER BACK. PATIENT DENIES UNEXPLAINABLE WEIGHT LOSS, FEVER, CHILLS, NEW CHANGES ON HIS URINARY OR BOWEL CONTROL. FALL RISK SCREENING: SCREENING :NO FALLS REPORTED IN THE LAST YEAR PAIN SCREENING: PATIENT HAS A COMPLAINT OF ACUTE OR CHRONIC PAIN :YES LOCATION OF PAIN:LOW BACK LEFT SIDE INTENSITY OF PAIN (SCALE OF 1 TO 10):4 WHAT DOES YOUR PAIN FEEL LIKE:ACHING, INTERMITTENT, SHARP, SHOOTING DURATION:PERIODIC PAIN IS INCREASED BY:ACTIVITIES PAIN IS DECREASED BY:USE OF PAIN MEDICATIONS NURSING NOTE: -. PAIN CENTER INTAKE QUESTIONS: DO YOU HAVE A HISTORY OF MRSA? :NO DO YOU TAKE A BLOOD THINNERS? :YES PLAVIX 04/14 8AM, UNABLE TO STOP DUE TO RECENT STENTS PLACEMENT, 2 STENTS DO YOU HAVE ANY BLEEDING DISORDERS? :NO ANY NEW NUMBNESS OR WEAKNESS IN YOUR LEGS OR ARMS? :NO ANY PACEMAKER,DEFIBRILLATOR, OR DORSAL COLUMN STIMULATOR? :NO DO YOU HAVE ANY RASHES OR OPEN SORES? :NO ARE YOU ALLERGIC TO IV DYE? :NO ARE YOU DIABETIC? :NO ANY NEW PROBLEMS WITH YOUR MEDICATIONS? :NO HAVE YOU RECEIVED A VACCINE IN THE PAST 30 DAYS? :NO DO YOU PLAN TO RECEIVE A VACCINE IN THE NEXT 21 DAYS? :NO ANY HISTORY OF SEIZURES? :NO ANY HISTORY OF CARDIAC ISSUES OR EVENTS? :YES October PT STATES THAT HE HAD CHEST PAIN, 2 STENTS PLACED IN [facility], NO EVENTS SINCE STENT PLACEMENT DO YOU HAVE SLEEP APNEA? :NO ANY RECENT HEAD INJURY? :NO DO YOU HAVE ANY NEW INFECTIONS? :NO WHEN DID YOU LAST EAT? : -04/13 8PM WHEN DID YOU LAST DRINK? : -04/14 9AM WHAT DID YOU LAST DRINK? : -WATER NAME OF PERSON DRIVING YOU HOME? : -GIRLFRIEND- KEYSHAWN DO YOU HAVE ANY OTHER QUESTIONS OR CONCERNS? : -PT STATES THAT HE HAS A LYPOMA ON LEFT MID BACK, PT STATES THAT IT IS NOT PAINFUL, PT'S PCP IS AWARE OF LYPOMA CURRENT MEDICATIONS TAKING ALBUTEROL SULFATE (2.5 MG/3ML) 0.083% NEBULIZATION SOLUTION 3 ML NEEDED INHALATION EVERY 6 HRS, NOTES: 2 DAYS TAKING ASPIR-LOW 81 MG TABLET DELAYED RELEASE 1 TABLET ORALLY ONCE A DAY, NOTES: 04/14 8AM TAKING GABAPENTIN 300 MG CAPSULE 1 CAPSULE ORALLY ONCE A DAY PRN, NOTES: 04/14 8AM TAKING PANTOPRAZOLE SODIUM 40 MG TABLET DELAYED RELEASE 1 TABLET ORALLY ONCE A DAY, NOTES: 04/14 8AM TAKING VITAMIN B1 100 MG TABLET 1 TABLET ORALLY ONCE A DAY, NOTES: 04/14 8AM TAKING METOPROLOL TARTRATE 25 MG TABLET 1 TABLET WITH FOOD ORALLY DAILY, NOTES: 04/14 8AM TAKING ATORVASTATIN CALCIUM 40 MG TABLET 1 TABLET ORALLY ONCE A DAY, NOTES: 04/14 8A TAKING CLOPIDOGREL BISULFATE 75 MG TABLET 1 TABLET ORALLY ONCE A DAY, NOTES: 04/14 8A TAKING FOLIC ACID 1 MG TABLET 1 TABLET ORALLY ONCE A DAY, NOTES: 04/14 8A TAKING CITALOPRAM HYDROBROMIDE 10 MG TABLET 1 TABLET ORALLY ONCE A DAY, NOTES: 04/14 8A TAKING MAY HAVE - - TAKING TYLENOL WITH CODEINE #3 300-30 MG TABLET 1 TABLET NEEDED ORALLY EVERY 6 HRS, NOTES: 3 DAYS AGO PAST MEDICAL HISTORY GERD HYPERTENSION HYPERLIPIDEMIA ALLERGIES N.K.D.A. SURGICAL HISTORY BACK SURGERY 61YRS REMOVAL OF COLON 60% DIVERTICULOSIS 60 YRS LASER SURGERY 2017 RIGHT HERNIA REMOVAL 63 YRS HEART SURGERY 10/25/2019 FAMILY HISTORY FATHER: MOTHER: SIBLINGS: ALIVE 1 SISTER(S) - HEALTHY. SOCIAL HISTORY GENERAL: TOBACCO USE ARE YOU A:NONSMOKER LATEX QUESTIONNAIRE LATEX ALLERGY : HAVE YOU EVER DEVELOPED ANY TYPE OF REACTION AFTER HANDLING LATEX PRODUCTS SUCH RUBBER GLOVES, CONDOMS, DIAPHRAGMS, BALLOONS, SOCKS, OR UNDERWEAR?NO LATEX ALLERGY : HAVE YOU EVER DEVELOPED ANY TYPE OF REACTION DURING OR AFTER DENTAL APPOINTMENT, VAGINAL/RECTAL EXAMINATION, SURGICAL PROCEDURE, OR ANY OTHER EXPOSURE?NO LATEX RISK : HAVE YOU EVER HAD ANY DIFFICULTY BREATHING OR HIVES AFTER EATING OR HANDLING ANY FRUITS, OR VEGETABLES; SUCH KIWI, BANANAS, STONE FRUITS, OR CHESTNUTSNO LATEX RISK : DO YOU HAVE A PREVIOUS PERSONAL HISTORY OF MORE THAN NINE SURGERIES, SPINA BIFIDA, OR REPEATED CATHERIZATIONS? NO LATEX RISK : ARE YOU FREQUENTLY EXPOSED TO LATEX PRODUCTS IN YOUR OCCUPATION?NO DATE ASKED : 04/14/2020 ALCOHOL SCREENING DID YOU HAVE A DRINK CONTAINING ALCOHOL IN THE PAST YEAR?YES HOW OFTEN DID YOU HAVE SIX OR MORE DRINKS ON ONE OCCASION IN THE PAST YEAR?NEVER (0 POINTS) HOW MANY DRINKS DID YOU HAVE ON A TYPICAL DAY WHEN YOU WERE DRINKING IN THE PAST YEAR?3 OR 4 (1 POINT) HOW OFTEN DID YOU HAVE A DRINK CONTAINING ALCOHOL IN THE PAST YEAR?TWO TO FOUR TIMES A MONTH (2 POINTS) POINTS3 INTERPRETATIONNEGATIVE RECREATIONAL DRUG USE DRUG USE?NO CAFFEINE CAFFEINE USE?YES 1 CUP DAILY COFFEE AND TEA LANGUAGE LANGUAGES SPOKEN:GUYANESE LEARNING BARRIERS / SPECIAL NEEDS CHANGE FROM LAST VISIT?NO BARRIERS TO LEARNING?NO HEARING IMPAIRED?NO VISION IMPAIRED?YES COGNITIVELY IMPAIRED?NO :CORRECTIVE LENSES READINESS TO LEARN?YES LEARNING PREFERENCES?NO LEARNING CAPABILITIES PRESENT?YES EMOTIONAL BARRIERS?NO SPECIAL DEVICES?YES :CANE COIL CLEANER NEEDED?NO DOMESTIC VIOLENCE DO YOU FEEL SAFE IN YOUR ENVIRONMENT?YES PAIN CLINIC PFS, CLERGY, PUBLIC HEALTH REFERRALS WAS THE PROVIDER NOTIFIED OF ANY PERTINENT INFO?YES HAS THE PATIENT BEEN EDUCATED REGARDING HIS/HER PLAN OF CARE?YES HAS THE PATIENT BEEN EDUCATED REGARDING PAIN, THE RISK FOR PAIN, THE IMPORTANCE OF EFFECTIVE PAIN MANAGEMENT, AND THE PAIN ASSESSMENT PROCESS?YES ADVANCE DIRECTIVE ADVANCE DIRECTIVE DISCUSSED WITH PATIENT:YES PT DECLINES HCP AT THIS TIME, DECLINES ASSISTANCE WITH PAPERWORK. HOSPITALIZATION/MAJOR DIAGNOSTIC PROCEDURE ABOVE VITAL SIGNS WT 185 LBS, HT 59 IN, BMI 37.36 INDEX, BP 122/70 MM HG, HR 67 /MIN, RR 18 /MIN, TEMP 97.7 F, OXYGEN SAT % 98%, SAFE IN ENV? (Y/N) Y, NA INITIALS AW 1322, REVIEWED BY: EMA. EXAMINATION GENERAL EXAMINATION: THE PATIENT IS ALERT, ORIENTED TIMES THREE AND COOPERATIVE. HEART SHOWS REGULAR RHYTHM, NO MURMURS AND NO GALLOPS. LUNGS ARE CLEAR TO AUSCULTATION. THERE WAS TENDERNESS OF THE PARASPINOUS MUSCLE AND THERE WERE BANDS OF TISSUE WITH RESTRICTION OF MOVEMENT PRESENT IN THE TRIGGER POINTS. ASSESSMENTS MYALGIA, OTHER SITE - M79.18 (PRIMARY) POST LAMINECTOMY SYNDROME - M96.1 TREATMENT MYALGIA, OTHER SITE CLINICAL NOTES: WE DISCUSSED SEVERAL ALTERNATIVES WITH MR. BURNS REGARDING HIS TREATMENT OPTIONS AND CARE. DUE TO THE PATIENT'S PAIN AND EXAMINATION, I HAVE DECIDED TO DO TRIGGER POINT INJECTIONS ON THE PATIENT TODAY. THE PATIENT AGREES TO THE PLAN. PROCEDURES PAIN NURSING RECORD PRE-PROCEDURE IV SITE N/A, PRE-PROCEDURE ORAL MEDICATIONS NA PROCEDURE IN ROOM 1400, PHYSICIAN IN ROOM 1438, START 1444, FINISH 1446, PHYSICIAN OUT OF ROOM 1447, OUT OF ROOM 1455, STEROID N/A, O2 RA, ECG N/A, PATIENT SHIELDED NO, SAFETY STRAP NO, PREP ALCOHOL MD DAVIS, IV INFUSED N/A, DRESSING TEGADERM IKE TELLO LOC: ROCÍO RODRIGUEZ RN 04/14/2020 2:17:44 PM > , 1. ALERT, ORIENTED RESP: ROCÍO RODRIGUEZ RN 04/14/2020 2:17:49 PM > , 1. REGULAR, NO DYSPNEA COLOR: ROCÍO RODRIGUEZ RN 04/14/2020 2:17:53 PM > , 1. PINK SKIN: ROCÍO RODRIGUEZ RN 04/14/2020 2:17:57 PM > , 1. WARM, DRY POSITION: 4. OTHER VITALS: ROCÍO RODRIGUEZ RN 04/14/2020 2:50:19 PM > 137/81, 61, 18, 97% PT AMBULATED FROM PROCEDURE ROOM USING CANE, GAIT STEADY, PT TOLERATED PROCEDURE WELL. DISCHARGE: POST PAIN 2, DRESSING SITE DRY AND INTACT, IV N/A, GAIT STEADY, TEACHING COMPLETED, PATIENT ACKNOWLEDGES UNDERSTANDING YES, PATIENT DISCHARGED AT 1455 PN TRIGGER POINT INJECTION NO STEROIDS PRE PROCEDURE DIAGNOSIS 1. MYALGIA 2. PAIN AT LEFT LOWER BACK AREA POST PROCEDURE DIAGNOSIS 1. MYALGIA 2. PAIN AT LEFT LOWER BACK AREA PROCEDURE TRIGGER POINT INJECTION AT LEFT LOWER BACK AREA SURGEON DR. BIA DAVIS COMMERCIAL CREDIT ANALYST NONE ANESTHESIA LOCAL PRE PROCEDURE NOTE THE PATIENT HAS HISTORY OF CHRONIC PAIN AT LEFT LOWER BACK AREA. I EVALUATED THE PATIENT AND REVIEWED THE CHART. THERE IS EVIDENCE OF BANDS OF TISSUE WITH RESTRICTION OF MOVEMENT AND PRESENCE OF TRIGGER POINT AT THE LEFT LOWER BACK AREA. I WENT OVER THE RISKS, ALTERNATIVES, AND BENEFITS ASSOCIATED WITH THIS PROCEDURE. THE PATIENT WOULD LIKE TO PROCEED AND GAVE CONSENT TO PERFORM THE PROCEDURE. THE PATIENT DENIES UNEXPLAINABLE WEIGHT LOSS, FEVER, CHILLS, OR NEW CHANGES IN URINARY OR BOWEL CONTROL. THE PATIENT IS COVID-19 NEGATIVE DESCRIPTION OF PROCEDURE THE PATIENT WAS BROUGHT TO THE PROCEDURE ROOM AND PLACED IN THE SITTING POSITION. THE AREA WAS CLEANED WITH ALCOHOL. THE PROCEDURE WAS DONE USING ASEPTIC STERILE TECHNIQUES. I CHECKED LATERALITY AND THE LEVEL WHERE THE PROCEDURE WAS GOING TO BE PERFORMED WITH THE PATIENT AND THE SUPPORTING STAFF AT THE MOMENT OF THE TIME OUT IN THE PROCEDURE ROOM. USING A 25-GAUGE NEEDLE, TRIGGER POINTS WERE INJECTED INTO THE LEFT LOWER BACK AREA WITH A TOTAL OF 40 ML OF BUPIVACAINE 0.25%. AGREED WITH THE PATIENT THE PROCEDURE WAS DONE WITHOUT STEROIDS. THERE WAS NO EVIDENCE OF BLOOD, PARESTHESIA OR CEREBROSPINAL FLUID DURING THE PROCEDURE. THE PATIENT WAS SENT TO THE RECOVERY ROOM. THE PATIENT WAS MOVING THE EXTREMITIES AND DOING WELL. THERE WAS NO COMPLICATION DURING THE PROCEDURE POST PROCEDURE NOTE THE PROCEDURE DONE WAS DISCUSSED WITH THE PATIENT. THE PATIENT WILL BE SEEN IN A FOLLOW UP IN THE NEXT FEW WEEKS. I AM LOOKING FOR LONG LASTING PAIN RELIEF FOR THE PATIENT WITH THIS INTERVENTION. INSTRUCTIONS WERE GIVEN, QUESTIONS WERE ANSWERED, AND THE PATIENT EXPRESSED UNDERSTANDING AND AGREES WITH THE PLAN. I, FRANCOIS DILLON, DOCUMENTED THE ABOVE INFORMATION ACTING A SCRIBE FOR DR. DAVIS. I HAVE REVIEWED THE ABOVE DOCUMENT, WRITTEN BY FRANCOIS DILLON, EXPERIMENTAL DISPLAY BUILDER, AND I VERIFY THAT IT IS ACCURATE PROCEDURE CODES 28094 INJ TRIGGER POINT 11/13 [facility] DISPOSITION & COMMUNICATION FOLLOW UP F/UP WITH STICKER OPERATOR (REASON: POST TPI LEFT LOW BACK) ELECTRONICALLY SIGNED BY BIA DAVIS MD, MD ON 04/14/2020 AT 04:45 PM EDT DISCLAIMER : THIS IS A VISIT SUMMARY EXTRACTED FROM THE [facility] CHART. IT IS NOT A COPY OF THE [facility] PROGRESS NOTE. DARY
== END ==
LOC: M PAIN 13:45
PROVIDERS: ATTEND Anesthesiology
DX: M79.18 Myalgia, other site (principal); M96.1 Postlaminectomy syndrome, not elsewhere classified

== ENCOUNTER → 2020-04-30 | Outpatient (CLI) | payer OTHER ==
[~2020-04-30] MED LIST changes: -BUPIVACAINE HCL 0.25% 10ML VIAL As Ordered ONE; -BUPIVACAINE HCL 0.25% 30ML VIAL As Ordered ONE
--- NOTE | 2020-05-04 01:41 | ECWPNPC ---
PATIENT NAME: LEA BUNRS : 1945 GENDER: MALE VISIT DATE: 04/30/2020 DISCHARGE DATE: 04/30/20 1456 VISIT LOCKED DATE TIME: PHYSICIAN: MERRY TORRES RESOURCE: MERRY TORRES REASON FOR APPOINTMENT 1. POST TPI HISTORY OF PRESENT ILLNESS GENERAL: - 75-YEAR-OLD MALE IN FOR POST TPI FOLLOW-UP. HE FEELS THE PROCEDURE WAS EFFECTIVE OVERALL RATING HIS PAIN PREPROCEDURE AT A 4-5 OUT OF 10 AND POST PROCEDURE AT A 1 OUT OF 10. HE FURTHER STATES THE PROCEDURE CONTINUES TO HELP HIM TODAY. FALL RISK SCREENING: SCREENING :NO FALLS REPORTED IN THE LAST YEAR PAIN SCREENING: PATIENT HAS A COMPLAINT OF ACUTE OR CHRONIC PAIN :YES [id number], [id number]-2/10 LOCATION OF PAIN:LOW BACK LEFT LOWER SIDE INTENSITY OF PAIN (SCALE OF 1 TO 10):1 WHAT DOES YOUR PAIN FEEL LIKE:OTHER DULL PAIN PLAN/GOALS/TREATMENT/INTERVENTION/FOLLOW UP:SEE PLAN NURSING NOTE: -. PAIN CENTER INTAKE QUESTIONS: DO YOU HAVE A HISTORY OF MRSA? :NO DO YOU TAKE A BLOOD THINNERS? :NO DO YOU HAVE ANY BLEEDING DISORDERS? :NO ANY NEW NUMBNESS OR WEAKNESS IN YOUR LEGS OR ARMS? :NO ANY PACEMAKER,DEFIBRILLATOR, OR DORSAL COLUMN STIMULATOR? :NO DO YOU HAVE ANY RASHES OR OPEN SORES? :NO ARE YOU ALLERGIC TO IV DYE? :NO ARE YOU DIABETIC? :NO ANY NEW PROBLEMS WITH YOUR MEDICATIONS? :NO HAVE YOU RECEIVED A VACCINE IN THE PAST 30 DAYS? :NO DO YOU PLAN TO RECEIVE A VACCINE IN THE NEXT 21 DAYS? :NO DO YOU NEED ANY PRESCRIPTION? :NO DO YOU TAKE ANY IMMUNOSUPPRESSIVE MEDICATIONS? :NO IS THERE A CHANCE YOU COULD BE ? :NO ARE YOU BREAST FEEDING? :NO CURRENT MEDICATIONS TAKING ALBUTEROL SULFATE (2.5 MG/3ML) 0.083% NEBULIZATION SOLUTION 3 ML NEEDED INHALATION EVERY 6 HRS, NOTES: 2 DAYS TAKING ASPIR-LOW 81 MG TABLET DELAYED RELEASE 1 TABLET ORALLY ONCE A DAY, NOTES: 6 8AM TAKING GABAPENTIN 300 MG CAPSULE 1 CAPSULE ORALLY ONCE A DAY PRN, NOTES: 04/14 8AM TAKING PANTOPRAZOLE SODIUM 40 MG TABLET DELAYED RELEASE 1 TABLET ORALLY ONCE A DAY, NOTES: 04/14 8AM TAKING VITAMIN B1 100 MG TABLET 1 TABLET ORALLY ONCE A DAY, NOTES: 04/14 8AM TAKING METOPROLOL TARTRATE 25 MG TABLET 1 TABLET WITH FOOD ORALLY DAILY, NOTES: 04/14 8AM TAKING ATORVASTATIN CALCIUM 40 MG TABLET 1 TABLET ORALLY ONCE A DAY, NOTES: 04/14 8A TAKING CLOPIDOGREL BISULFATE 75 MG TABLET 1 TABLET ORALLY ONCE A DAY, NOTES: 04/14 8A TAKING FOLIC ACID 1 MG TABLET 1 TABLET ORALLY ONCE A DAY, NOTES: 04/14 8A TAKING CITALOPRAM HYDROBROMIDE 10 MG TABLET 1 TABLET ORALLY ONCE A DAY, NOTES: 04/14 8A TAKING MAY HAVE - - TAKING TYLENOL WITH CODEINE #3 300-30 MG TABLET 1 TABLET NEEDED ORALLY EVERY 6 HRS, NOTES: 3 DAYS AGO MEDICATION LIST REVIEWED AND RECONCILED WITH THE PATIENT PAST MEDICAL HISTORY GERD HYPERTENSION HYPERLIPIDEMIA ALLERGIES N.K.D.A. SURGICAL HISTORY BACK SURGERY 61YRS REMOVAL OF COLON 60% DIVERTICULOSIS 60 YRS LASER SURGERY 2017 RIGHT HERNIA REMOVAL 63 YRS HEART SURGERY 10/25/2019 FAMILY HISTORY FATHER: MOTHER: SIBLINGS: ALIVE 1 SISTER(S) - HEALTHY. SOCIAL HISTORY GENERAL: TOBACCO USE ARE YOU A:NONSMOKER LATEX QUESTIONNAIRE LATEX ALLERGY : HAVE YOU EVER DEVELOPED ANY TYPE OF REACTION AFTER HANDLING LATEX PRODUCTS SUCH RUBBER GLOVES, CONDOMS, DIAPHRAGMS, BALLOONS, SOCKS, OR UNDERWEAR?NO LATEX ALLERGY : HAVE YOU EVER DEVELOPED ANY TYPE OF REACTION DURING OR AFTER DENTAL APPOINTMENT, VAGINAL/RECTAL EXAMINATION, SURGICAL PROCEDURE, OR ANY OTHER EXPOSURE?NO LATEX RISK : HAVE YOU EVER HAD ANY DIFFICULTY BREATHING OR HIVES AFTER EATING OR HANDLING ANY FRUITS, OR VEGETABLES; SUCH KIWI, BANANAS, STONE FRUITS, OR CHESTNUTSNO LATEX RISK : DO YOU HAVE A PREVIOUS PERSONAL HISTORY OF MORE THAN NINE SURGERIES, SPINA BIFIDA, OR REPEATED CATHERIZATIONS? NO LATEX RISK : ARE YOU FREQUENTLY EXPOSED TO LATEX PRODUCTS IN YOUR OCCUPATION?NO DATE ASKED : 04/30/2020 ALCOHOL SCREENING DID YOU HAVE A DRINK CONTAINING ALCOHOL IN THE PAST YEAR?YES HOW OFTEN DID YOU HAVE SIX OR MORE DRINKS ON ONE OCCASION IN THE PAST YEAR?NEVER (0 POINTS) HOW MANY DRINKS DID YOU HAVE ON A TYPICAL DAY WHEN YOU WERE DRINKING IN THE PAST YEAR?3 OR 4 (1 POINT) HOW OFTEN DID YOU HAVE A DRINK CONTAINING ALCOHOL IN THE PAST YEAR?TWO TO FOUR TIMES A MONTH (2 POINTS) POINTS3 INTERPRETATIONNEGATIVE RECREATIONAL DRUG USE DRUG USE?NO CAFFEINE CAFFEINE USE?YES 1 CUP DAILY COFFEE AND TEA LANGUAGE LANGUAGES SPOKEN:KYRGYZ LEARNING BARRIERS / SPECIAL NEEDS CHANGE FROM LAST VISIT?NO BARRIERS TO LEARNING?NO HEARING IMPAIRED?NO VISION IMPAIRED?YES COGNITIVELY IMPAIRED?NO :CORRECTIVE LENSES READINESS TO LEARN?YES LEARNING PREFERENCES?NO LEARNING CAPABILITIES PRESENT?YES EMOTIONAL BARRIERS?NO SPECIAL DEVICES?YES :CANE GANG SUPERVISOR NEEDED?NO DOMESTIC VIOLENCE DO YOU FEEL SAFE IN YOUR ENVIRONMENT?YES PAIN CLINIC PFS, CLERGY, PUBLIC HEALTH REFERRALS WAS THE PROVIDER NOTIFIED OF ANY PERTINENT INFO?YES HAS THE PATIENT BEEN EDUCATED REGARDING HIS/HER PLAN OF CARE?YES HAS THE PATIENT BEEN EDUCATED REGARDING PAIN, THE RISK FOR PAIN, THE IMPORTANCE OF EFFECTIVE PAIN MANAGEMENT, AND THE PAIN ASSESSMENT PROCESS?YES ADVANCE DIRECTIVE ADVANCE DIRECTIVE DISCUSSED WITH PATIENT:YES PT DECLINES HCP AT THIS TIME, DECLINES ASSISTANCE WITH PAPERWORK. HOSPITALIZATION/MAJOR DIAGNOSTIC PROCEDURE ABOVE REVIEW OF SYSTEMS CONSTITUTIONAL: ANY RECENT FEVER NO . CHILLS NO . WEIGHT CHANGE OF UNKNOWN REASONS NO . GASTROENTEROLOGY: NEW UNEXPLAINABLE CHANGES IN BOWEL CONTROL NO . CONSTIPATION NO . GENITOURINARY: ANY NEW CHANGE IN BLADDER CONTROL? NO . NEUROLOGY: NEW ONSET DIZZINESS OR NEUROLOGICAL CHANGES NOT MENTIONED NO . NEW NUMBNESS OR PAIN PATTERNS NOT MENTIONED AND PERTINENT TO TODAY'S VISIT NO . CARDIOLOGY: NEW CHEST PRESSURE NO . NEW CHEST PAIN NO . RESPIRATORY: UNEXPLAINABLE COUGH NO . NEW SHORTNESS OF BREATH NO . VITAL SIGNS WT 190 LBS, HT 59 IN, BMI 38.37 INDEX, BP 137/68 MM HG, HR 72 /MIN, RR 18 /MIN, TEMP 97.2 F, OXYGEN SAT % 98%, NA INITIALS SC 14:52. EXAMINATION GENERAL EXAMINATION: GENERALNO ACUTE DISTRESS, WELL NOURISHED AND HYDRATED. PSYCHAPPROPRIATE MOOD AND AFFECT . LUNGS:CLEAR TO AUSCULTATION BILATERALLY, NO WHEEZES, RHONCHI, RALES. HEART:NO MURMURS, REGULAR RATE AND RHYTHM. ASSESSMENTS MYALGIA, OTHER SITE - M79.18 (PRIMARY) TREATMENT MYALGIA, OTHER SITE CLINICAL NOTES: 75-YEAR-OLD MALE IN FOR POST TPI FOLLOW-UP. GIVEN PRESENTING SYMPTOMS RECOMMEND FOLLOW-UP IN CLINIC IN ONE MONTH. PATIENT HAS EXPRESSED UNDERSTANDING OF AND WAS IN AGREEMENT WITH TREATMENT PLAN. GIVEN TIME TO ASK QUESTIONS AND EXPRESS CONCERNS. PROCEDURE CODES FA211 ESTABILISHED PATIENT [facility] FACILITY CHARGE DISPOSITION & COMMUNICATION FOLLOW UP 4 WEEKS (REASON: MYALGIA) ELECTRONICALLY SIGNED BY MARYJANE FELICIANO ON 05/03/2020 AT 01:02 PM EDT DISCLAIMER : THIS IS A VISIT SUMMARY EXTRACTED FROM THE [facility] CHART. IT IS NOT A COPY OF THE [facility] PROGRESS NOTE. DARY
== END ==
LOC: M PAIN 14:30
PROVIDERS: ATTEND Family Medicine
DX: M79.18 Myalgia, other site (principal)

== ENCOUNTER → 2020-05-31 | Outpatient (CLI) | payer OTHER ==
[~2020-05-31] MED LIST changes: +PANT40TA29 PO; -PANT40TA3 PO
--- NOTE | 2020-06-02 02:12 | ECWPNPC ---
PATIENT NAME: LEA BURNS : 1945 GENDER: MALE VISIT DATE: 05/31/2020 DISCHARGE DATE: 05/31/20 1456 VISIT LOCKED DATE TIME: PHYSICIAN: MERRY TORRES RESOURCE: MERRY TORRES REASON FOR APPOINTMENT 1. MYALGIA HISTORY OF PRESENT ILLNESS GENERAL: -75-YEAR-OLD MALE IN FOR CHRONIC PAIN FOLLOW-UP. HE RATES HIS PAIN CURRENTLY AT A 6 OUT OF 10 AND DESCRIBES IT CONTINUOUS, AND SHARP. PATIENT HAS HAD TRIGGER POINT INJECTIONS IN THE PAST AND FOUND GOOD RELIEF WITH THEM. WE'LL DISCUSS REPEAT PROCEDURES TODAY WITH PATIENT. FALL RISK SCREENING: SCREENING :NO FALLS REPORTED IN THE LAST YEAR PAIN SCREENING: PATIENT HAS A COMPLAINT OF ACUTE OR CHRONIC PAIN :YES LOCATION OF PAIN:OTHER: MYALGIA INTENSITY OF PAIN (SCALE OF 1 TO 10):6 WHAT DOES YOUR PAIN FEEL LIKE:SHARP DURATION:CONTINOUS, CONSTANT, ALL DAY PAIN IS INCREASED BY:ACTIVITIES PAIN IS DECREASED BY:USE OF PAIN MEDICATIONS PAIN HAS INTERFERED WITH THE FOLLOWING:WALKING ABILITY, HOUSEWORK, RELATIONSHIP WITH OTHERS, ENJOYMENT OF LIFE PLAN/GOALS/TREATMENT/INTERVENTION/FOLLOW UP:SEE PLAN NURSING NOTE: -. CURRENT MEDICATIONS TAKING ALBUTEROL SULFATE (2.5 MG/3ML) 0.083% NEBULIZATION SOLUTION 3 ML NEEDED INHALATION EVERY 6 HRS, NOTES: 2 DAYS TAKING ASPIR-LOW 81 MG TABLET DELAYED RELEASE 1 TABLET ORALLY ONCE A DAY, NOTES: 6 8AM TAKING GABAPENTIN 300 MG CAPSULE 1 CAPSULE ORALLY ONCE A DAY PRN, NOTES: 04/14 8AM TAKING PANTOPRAZOLE SODIUM 40 MG TABLET DELAYED RELEASE 1 TABLET ORALLY ONCE A DAY, NOTES: 04/14 8AM TAKING VITAMIN B1 100 MG TABLET 1 TABLET ORALLY ONCE A DAY, NOTES: 04/14 8AM TAKING METOPROLOL TARTRATE 25 MG TABLET 1 TABLET WITH FOOD ORALLY DAILY, NOTES: 04/14 8AM TAKING ATORVASTATIN CALCIUM 40 MG TABLET 1 TABLET ORALLY ONCE A DAY, NOTES: 04/14 8A TAKING CLOPIDOGREL BISULFATE 75 MG TABLET 1 TABLET ORALLY ONCE A DAY, NOTES: 04/14 8A TAKING FOLIC ACID 1 MG TABLET 1 TABLET ORALLY ONCE A DAY, NOTES: 04/14 8A TAKING CITALOPRAM HYDROBROMIDE 10 MG TABLET 1 TABLET ORALLY ONCE A DAY, NOTES: 04/14 8A TAKING MAY HAVE - - TAKING TYLENOL WITH CODEINE #3 300-30 MG TABLET 1 TABLET NEEDED ORALLY EVERY 6 HRS, NOTES: 3 DAYS AGO MEDICATION LIST REVIEWED AND RECONCILED WITH THE PATIENT PAST MEDICAL HISTORY GERD HYPERTENSION HYPERLIPIDEMIA ALLERGIES N.K.D.A. SURGICAL HISTORY BACK SURGERY 61YRS REMOVAL OF COLON 60% DIVERTICULOSIS 60 YRS LASER SURGERY 2017 RIGHT HERNIA REMOVAL 63 YRS HEART SURGERY 10/25/2019 FAMILY HISTORY FATHER: MOTHER: SIBLINGS: ALIVE 1 SISTER(S) - HEALTHY. SOCIAL HISTORY GENERAL: TOBACCO USE ARE YOU A:NONSMOKER LATEX QUESTIONNAIRE LATEX ALLERGY : HAVE YOU EVER DEVELOPED ANY TYPE OF REACTION AFTER HANDLING LATEX PRODUCTS SUCH RUBBER GLOVES, CONDOMS, DIAPHRAGMS, BALLOONS, SOCKS, OR UNDERWEAR?NO LATEX ALLERGY : HAVE YOU EVER DEVELOPED ANY TYPE OF REACTION DURING OR AFTER DENTAL APPOINTMENT, VAGINAL/RECTAL EXAMINATION, SURGICAL PROCEDURE, OR ANY OTHER EXPOSURE?NO LATEX RISK : HAVE YOU EVER HAD ANY DIFFICULTY BREATHING OR HIVES AFTER EATING OR HANDLING ANY FRUITS, OR VEGETABLES; SUCH KIWI, BANANAS, STONE FRUITS, OR CHESTNUTSNO LATEX RISK : DO YOU HAVE A PREVIOUS PERSONAL HISTORY OF MORE THAN NINE SURGERIES, SPINA BIFIDA, OR REPEATED CATHERIZATIONS? NO LATEX RISK : ARE YOU FREQUENTLY EXPOSED TO LATEX PRODUCTS IN YOUR OCCUPATION?NO DATE ASKED : 05/31/2020 ALCOHOL SCREENING DID YOU HAVE A DRINK CONTAINING ALCOHOL IN THE PAST YEAR?YES HOW OFTEN DID YOU HAVE SIX OR MORE DRINKS ON ONE OCCASION IN THE PAST YEAR?NEVER (0 POINTS) HOW MANY DRINKS DID YOU HAVE ON A TYPICAL DAY WHEN YOU WERE DRINKING IN THE PAST YEAR?3 OR 4 (1 POINT) HOW OFTEN DID YOU HAVE A DRINK CONTAINING ALCOHOL IN THE PAST YEAR?TWO TO FOUR TIMES A MONTH (2 POINTS) POINTS3 INTERPRETATIONNEGATIVE RECREATIONAL DRUG USE DRUG USE?NO CAFFEINE CAFFEINE USE?YES 1 CUP DAILY COFFEE AND TEA LANGUAGE LANGUAGES SPOKEN:ROMANSH LEARNING BARRIERS / SPECIAL NEEDS CHANGE FROM LAST VISIT?NO BARRIERS TO LEARNING?NO HEARING IMPAIRED?NO VISION IMPAIRED?YES COGNITIVELY IMPAIRED?NO :CORRECTIVE LENSES READINESS TO LEARN?YES LEARNING PREFERENCES?NO LEARNING CAPABILITIES PRESENT?YES EMOTIONAL BARRIERS?NO SPECIAL DEVICES?YES :CANE ENGLISH ADJUNCT FACULTY NEEDED?NO DOMESTIC VIOLENCE DO YOU FEEL SAFE IN YOUR ENVIRONMENT?YES PAIN CLINIC PFS, CLERGY, PUBLIC HEALTH REFERRALS WAS THE PROVIDER NOTIFIED OF ANY PERTINENT INFO?YES HAS THE PATIENT BEEN EDUCATED REGARDING HIS/HER PLAN OF CARE?YES HAS THE PATIENT BEEN EDUCATED REGARDING PAIN, THE RISK FOR PAIN, THE IMPORTANCE OF EFFECTIVE PAIN MANAGEMENT, AND THE PAIN ASSESSMENT PROCESS?YES ADVANCE DIRECTIVE ADVANCE DIRECTIVE DISCUSSED WITH PATIENT:YES PT DECLINES HCP AT THIS TIME, DECLINES ASSISTANCE WITH PAPERWORK. HOSPITALIZATION/MAJOR DIAGNOSTIC PROCEDURE ABOVE REVIEW OF SYSTEMS CONSTITUTIONAL: ANY RECENT FEVER NO . CHILLS NO . WEIGHT CHANGE OF UNKNOWN REASONS NO . GASTROENTEROLOGY: NEW UNEXPLAINABLE CHANGES IN BOWEL CONTROL NO . CONSTIPATION NO . GENITOURINARY: ANY NEW CHANGE IN BLADDER CONTROL? NO . NEUROLOGY: NEW ONSET DIZZINESS OR NEUROLOGICAL CHANGES NOT MENTIONED NO . NEW NUMBNESS OR PAIN PATTERNS NOT MENTIONED AND PERTINENT TO TODAY'S VISIT NO . CARDIOLOGY: NEW CHEST PRESSURE NO . NEW CHEST PAIN NO . RESPIRATORY: UNEXPLAINABLE COUGH NO . NEW SHORTNESS OF BREATH NO . VITAL SIGNS WT 184 LBS, HT 59 IN, BMI 37.16 INDEX, BP 100/63 MM HG, HR 69 /MIN, RR 18 /MIN, TEMP 97.2 F, OXYGEN SAT % 95, SAFE IN ENV? (Y/N) YNANA ASUMADU CREWMAN MAIN BATTLE TANK. EXAMINATION GENERAL EXAMINATION: GENERALNO ACUTE DISTRESS, WELL NOURISHED AND HYDRATED. PSYCHAPPROPRIATE MOOD AND AFFECT . LUNGS:CLEAR TO AUSCULTATION BILATERALLY, NO WHEEZES, RHONCHI, RALES. HEART:NO MURMURS, REGULAR RATE AND RHYTHM. BACK:POINT TENDER LEFT LOW BACK, SURROUNDING SKIN SHOWS NO ERYTHEMA, ECCHYMOSIS, INCREASED WARMTH, AND/OR SKIN ERUPTIONS NOTED. BANDS OF RESTRICTIVE TISSUE NOTED OVER TRIGGER POINTS . ASSESSMENTS MYALGIA, OTHER SITE - M79.18 (PRIMARY) TREATMENT MYALGIA, OTHER SITE NOTES: TPI LEFT LOW BACK. CLINICAL NOTES: 75-YEAR-OLD MALE IN FOR CHRONIC PAIN FOLLOW-UP. GIVEN PRESENTING SYMPTOMS RECOMMENDED TPI OF THE LOW BACK WITH POST PROCEDURAL FOLLOW-UP. PATIENT HAS EXPRESSED UNDERSTANDING OF AND WAS IN AGREEMENT WITH TREATMENT PLAN. GIVEN TIME TO ASK QUESTIONS AND EXPRESS CONCERNS. DISPOSITION & COMMUNICATION FOLLOW UP POSTPROCEDURE (REASON: TPI LEFT LOW BACK) ELECTRONICALLY SIGNED BY MARYJANE FELICIANO ON 06/01/2020 AT 03:05 PM EDT DISCLAIMER : THIS IS A VISIT SUMMARY EXTRACTED FROM THE [email or web address] CHART. IT IS NOT A COPY OF THE [email or web address] PROGRESS NOTE. DARY
== END ==
LOC: M PAIN 13:30
PROVIDERS: ATTEND Family Medicine
DX: M79.18 Myalgia, other site (principal)

== ENCOUNTER → 2020-08-21 | Outpatient (CLI) | payer OTHER | LOC: M LABSMTC 11:36 | PROVIDERS: ATTEND Anesthesiology | DX: Z20.828 Contact with and (suspected) exposure to other viral communicable diseases (principal) | CPT/HCPCS: C9803; U0003 ==

== ENCOUNTER → 2020-08-26 | Outpatient (CLI) | payer OTHER ==
[~2020-08-26] MED LIST changes: +BUPIVACAINE HCL 0.25% 10ML VIAL As Ordered ONE; +BUPIVACAINE HCL 0.25% 30ML VIAL As Ordered ONE; +NORCO, ANEXSIA 5/325MG TABLET (HYDROcodone/ACETAMINOPHEN) As Ordered ONE; +TRIAMCINOLONE ACETONIDE SUSP 40 MG/ML VIAL (J3301) As Ordered ONE; +diazePAM 5 MG TAB As Ordered ONE
--- NOTE | 2020-09-02 14:34 | ECWPNPC ---
PATIENT NAME: LEA BURNS : 1945 GENDER: MALE VISIT DATE: 08/26/2020 DISCHARGE DATE: 08/26/20 155 VISIT LOCKED DATE TIME: PHYSICIAN: BIA DAVIS MD RESOURCE: BIA DAVIS MD REASON FOR APPOINTMENT 1. LEFT LOW BACK TPI HISTORY OF PRESENT ILLNESS GENERAL: -. FALL RISK SCREENING: SCREENING :NO FALLS REPORTED IN THE LAST YEAR PAIN SCREENING: PATIENT HAS A COMPLAINT OF ACUTE OR CHRONIC PAIN :YES LOCATION OF PAIN:LOW BACK MOSTLY LEFT SIDE INTENSITY OF PAIN (SCALE OF 1 TO 10):8 WHAT DOES YOUR PAIN FEEL LIKE:ACHING, CONTINOUS, SORE, OTHER CONSTANT NAGGING PAIN DURATION:CONTINOUS, CONSTANT PAIN IS INCREASED BY:ACTIVITIES, PROLONGED STANDING PAIN IS DECREASED BY:USE OF PAIN MEDICATIONS NURSING NOTE: -. PAIN CENTER INTAKE QUESTIONS: DO YOU HAVE A HISTORY OF MRSA? :NO DO YOU TAKE A BLOOD THINNERS? :YES CLOPODOGREL DO YOU HAVE ANY BLEEDING DISORDERS? :NO ANY NEW NUMBNESS OR WEAKNESS IN YOUR LEGS OR ARMS? :NO ANY PACEMAKER,DEFIBRILLATOR, OR DORSAL COLUMN STIMULATOR? :NO DO YOU HAVE ANY RASHES OR OPEN SORES? :NO ARE YOU ALLERGIC TO IV DYE? :NO ARE YOU DIABETIC? :NO ANY NEW PROBLEMS WITH YOUR MEDICATIONS? :NO HAVE YOU RECEIVED A VACCINE IN THE PAST 30 DAYS? :NO DO YOU PLAN TO RECEIVE A VACCINE IN THE NEXT 21 DAYS? :NO DO YOU TAKE ANY IMMUNOSUPPRESSIVE MEDICATIONS? :NO ANY HISTORY OF SEIZURES? :NO ANY HISTORY OF CARDIAC ISSUES OR EVENTS? :YES 1 SC, 2 CARDIAC STENTS DO YOU HAVE SLEEP APNEA? :NO ANY RECENT HEAD INJURY? :NO DO YOU HAVE ANY NEW INFECTIONS? :NO IS THERE A CHANCE YOU COULD BE ? :NO ARE YOU BREAST FEEDING? :NO WHEN DID YOU LAST EAT? : 08/26 0800 WHEN DID YOU LAST DRINK? : 08/26 800 WHAT DID YOU LAST DRINK? : COFFEE WITH SUGAR AND CREAM NAME OF PERSON DRIVING YOU HOME? : TRAVON CONNOLLY DO YOU HAVE ANY OTHER QUESTIONS OR CONCERNS? : NONE CURRENT MEDICATIONS TAKING ALBUTEROL SULFATE (2.5 MG/3ML) 0.083% NEBULIZATION SOLUTION 3 ML NEEDED INHALATION EVERY 6 HRS, NOTES: NONE RECENT TAKING ASPIR-LOW 81 MG TABLET DELAYED RELEASE 1 TABLET ORALLY ONCE A DAY, NOTES: 10/15 0700 TAKING GABAPENTIN 300 MG CAPSULE 1 CAPSULE ORALLY ONCE A DAY PRN, NOTES: 08/26 700 TAKING PANTOPRAZOLE SODIUM 40 MG TABLET DELAYED RELEASE 1 TABLET ORALLY ONCE A DAY, NOTES: 08/26 700 TAKING VITAMIN B1 100 MG TABLET 1 TABLET ORALLY ONCE A DAY, NOTES: 08/26 700 TAKING METOPROLOL TARTRATE 25 MG TABLET 1 TABLET WITH FOOD ORALLY DAILY, NOTES: 08/26 700 TAKING ATORVASTATIN CALCIUM 40 MG TABLET 1 TABLET ORALLY ONCE A DAY, NOTES: 08/26 700 TAKING CLOPIDOGREL BISULFATE 75 MG TABLET 1 TABLET ORALLY ONCE A DAY, NOTES: 08/26 700 TAKING FOLIC ACID 1 MG TABLET 1 TABLET ORALLY ONCE A DAY, NOTES: 08/26 700 TAKING CITALOPRAM HYDROBROMIDE 10 MG TABLET 1 TABLET ORALLY ONCE A DAY, NOTES: 08/26 700 TAKING MAY HAVE - - TAKING TYLENOL WITH CODEINE #3 300-30 MG TABLET 1 TABLET NEEDED ORALLY EVERY 6 HRS, NOTES: 08/25 2000 MEDICATION LIST REVIEWED AND RECONCILED WITH THE PATIENT PAST MEDICAL HISTORY GERD HYPERTENSION HYPERLIPIDEMIA BACK PAIN ALLERGIES N.K.D.A. SURGICAL HISTORY BACK SURGERY 61YRS REMOVAL OF COLON 60% DIVERTICULOSIS 60 YRS LASER SURGERY 2017 RIGHT HERNIA REMOVAL 63 YRS HEART SURGERY 10/25/2019 FAMILY HISTORY FATHER: , PARKINSON'S MOTHER: , DIABETES SIBLINGS: ALIVE 1 SISTER(S) - HEALTHY. SOCIAL HISTORY GENERAL: TOBACCO USE ARE YOU A:NONSMOKER LATEX QUESTIONNAIRE LATEX ALLERGY : HAVE YOU EVER DEVELOPED ANY TYPE OF REACTION AFTER HANDLING LATEX PRODUCTS SUCH RUBBER GLOVES, CONDOMS, DIAPHRAGMS, BALLOONS, SOCKS, OR UNDERWEAR?NO LATEX ALLERGY : HAVE YOU EVER DEVELOPED ANY TYPE OF REACTION DURING OR AFTER DENTAL APPOINTMENT, VAGINAL/RECTAL EXAMINATION, SURGICAL PROCEDURE, OR ANY OTHER EXPOSURE?NO LATEX RISK : HAVE YOU EVER HAD ANY DIFFICULTY BREATHING OR HIVES AFTER EATING OR HANDLING ANY FRUITS, OR VEGETABLES; SUCH KIWI, BANANAS, STONE FRUITS, OR CHESTNUTSNO LATEX RISK : DO YOU HAVE A PREVIOUS PERSONAL HISTORY OF MORE THAN NINE SURGERIES, SPINA BIFIDA, OR REPEATED CATHERIZATIONS? NO LATEX RISK : ARE YOU FREQUENTLY EXPOSED TO LATEX PRODUCTS IN YOUR OCCUPATION?NO DATE ASKED : 08/26/2020 ALCOHOL SCREENING DID YOU HAVE A DRINK CONTAINING ALCOHOL IN THE PAST YEAR?YES HOW OFTEN DID YOU HAVE SIX OR MORE DRINKS ON ONE OCCASION IN THE PAST YEAR?NEVER (0 POINTS) HOW MANY DRINKS DID YOU HAVE ON A TYPICAL DAY WHEN YOU WERE DRINKING IN THE PAST YEAR?3 OR 4 (1 POINT) HOW OFTEN DID YOU HAVE A DRINK CONTAINING ALCOHOL IN THE PAST YEAR?TWO TO FOUR TIMES A MONTH (2 POINTS) POINTS3 INTERPRETATIONNEGATIVE RECREATIONAL DRUG USE DRUG USE?NO CAFFEINE CAFFEINE USE?YES 1 CUP DAILY COFFEE AND TEA LANGUAGE LANGUAGES SPOKEN:LIBYAN LEARNING BARRIERS / SPECIAL NEEDS CHANGE FROM LAST VISIT?NO BARRIERS TO LEARNING?NO HEARING IMPAIRED?NO VISION IMPAIRED?YES :CORRECTIVE LENSES COGNITIVELY IMPAIRED?NO READINESS TO LEARN?YES LEARNING PREFERENCES?NO LEARNING CAPABILITIES PRESENT?YES EMOTIONAL BARRIERS?NO SPECIAL DEVICES?YES :CANE HOTEL CONTROLLER NEEDED?NO DOMESTIC VIOLENCE DO YOU FEEL SAFE IN YOUR ENVIRONMENT?YES PAIN CLINIC PFS, CLERGY, PUBLIC HEALTH REFERRALS HAS THE PATIENT BEEN EDUCATED REGARDING HIS/HER PLAN OF CARE?YES HAS THE PATIENT BEEN EDUCATED REGARDING PAIN, THE RISK FOR PAIN, THE IMPORTANCE OF EFFECTIVE PAIN MANAGEMENT, AND THE PAIN ASSESSMENT PROCESS?YES ADVANCE DIRECTIVE ADVANCE DIRECTIVE DISCUSSED WITH PATIENT:YES 08/26/20 PT STATES HE DOES NOT HAVE ANY ADVANCED DIRECTIVES AND HE DECLINES HCP INFORMATION AT THIS TIME HOSPITALIZATION/MAJOR DIAGNOSTIC PROCEDURE ABOVE VITAL SIGNS WT 194.6 LBS, HT 59 IN, BMI 39.30 INDEX, BP 106/61 MM HG, HR 76 /MIN, RR 18 /MIN, TEMP 98.5 F, OXYGEN SAT % 96%, SAFE IN ENV? (Y/N) Y, NA INITIALS AW 1438, REVIEWED BY: HARINI. EXAMINATION GENERAL EXAMINATION: THE PATIENT IS ALERT, ORIENTED TIMES THREE AND COOPERATIVE. HEART SHOWS REGULAR RHYTHM, NO MURMURS AND NO GALLOPS. LUNGS ARE CLEAR TO AUSCULTATION. ASSESSMENTS MYALGIA, OTHER SITE - M79.18 (PRIMARY) TREATMENT MYALGIA, OTHER SITE MEDICATION: NORCO TABLET 5MG/325MG ORALLY (HYDROCODONE/ACETAMINOPHEN)VASQUEZ KNOX 08/26/2020 3:01:29 PM > LOT # [id number] EXP. 01/2022 LARISA CLEVELAND 08/26/2020 3:03:09 PM > VERIFIED VASQUEZ KNOX 08/26/2020 3:05:44 PM > ADMINISTERED PO MEDICATION: VALIUM TAB 5MG ORALLY (DIAZEPAM)VASQEUZ KNOX 08/26/2020 3:02:01 PM > LOT # [id number] EXP. 01/2021 LARISA CLEVELAND Sol 08/26/2020 3:03:37 PM > VERIFIED. VASQUEZ KNOX 08/26/2020 3:06:17 PM > ADMINISTERED PO PROCEDURES PAIN NURSING RECORD PRE-PROCEDURE IV SITE N/A, PRE-PROCEDURE ORAL MEDICATIONS SEE MEDICATION ORDERS PROCEDURE IN ROOM 1438, PHYSICIAN IN ROOM 1534, START 1536, FINISH 1540, PHYSICIAN OUT OF ROOM 1541, OUT OF ROOM 1556, STEROID KENALOG, O2 N/A, ECG N/A, PATIENT SHIELDED NO, SAFETY STRAP NO, PREP ALCOHOL BY DR. DAVIS, IV INFUSED N/A, DRESSING TEGADERM BY Silver KNOX RN LOC: VASQUEZ KNOX 08/26/2020 3:20:37 PM > 1. ALERT, ORIENTED RESP: VASQUEZ KNOX 08/26/2020 3:20:41 PM > 1. REGULAR, NO DYSPNEA COLOR: ABILIOVASQUEZ 08/26/2020 3:20:45 PM > 1. PINK SKIN: ABILIOVASQUEZ 08/26/2020 3:20:49 PM > 1. WARM, DRY POSITION: JENNIFER KNOXITA 08/26/2020 3:20:53 PM > 4. OTHER-SITTING VITALS: VASQUEZ KNOX 08/26/2020 3:52:37 PM > 67360,82,18,96% DISCHARGE: POST PAIN 03/21, DRESSING SITE DRY AND INTACT, IV N/A, GAIT STEADY, TEACHING COMPLETED, PATIENT ACKNOWLEDGES UNDERSTANDING YES, PATIENT DISCHARGED AT 1556 PN TRIGGER POINT INJECTION WITH STEROIDS PRE PROCEDURE DIAGNOSIS 1. MYALGIA 2. PAIN AT LEFT LOWER BACK AREA POST PROCEDURE DIAGNOSIS 1. MYALGIA 2. PAIN AT LEFT LOWER BACK AREA PROCEDURE TRIGGER POINT INJECTION AT LEFT LOWER BACK AREA SURGEON DR. BIA DAVIS NUCLEAR WEAPONS CUSTODIAN NONE ANESTHESIA LOCAL PRE PROCEDURE NOTE THE PATIENT HAS A HISTORY OF CHRONIC PAIN AT THE LEFT LOWER BACK AREA. I EVALUATED THE PATIENT AND REVIEWED THE CHART. THERE IS EVIDENCE OF BANDS OF TISSUE WITH RESTRICTION OF MOVEMENT AND PRESENCE OF TRIGGER POINT AT THE LEFT LOWER BACK AREA. I WENT OVER THE RISKS, ALTERNATIVES, AND BENEFITS ASSOCIATED WITH THIS PROCEDURE. I DISCUSSED THAT THE USE OF STEROIDS MAY CONTRIBUTE TO IMMUNOSUPPRESSION OF THE PATIENT'S BODY AGAINST INFECTIONS SUCH COVID-19. THE PATIENT IS AWARE OF THE POTENTIAL COMPLICATIONS ASSOCIATED WITH THIS VIRUS, INCLUDING, BUT NOT LIMITED TO, . THE PATIENT WOULD LIKE TO PROCEED AND GIVE CONSENT TO PERFORMED THE PROCEDURE. THE PATIENT DENIES UNEXPLAINABLE WEIGHT LOSS, FEVER, CHILLS, OR NEW CHANGES IN URINARY OR BOWEL CONTROL. THE PATIENT IS COVID-19 NEGATIVE DESCRIPTION OF PROCEDURE THE PATIENT WAS BROUGHT TO THE PROCEDURE ROOM AND PLACED IN THE SITTING POSITION. THE AREA WAS CLEANED WITH ALCOHOL. THE PROCEDURE WAS DONE USING ASEPTIC STERILE TECHNIQUE. A TIMEOUT WAS PERFORMED WHERE LATERALITY AND THE SITE OF THE PROCEDURE WERE CHECKED AND CONFIRMED WITH EVERYONE IN THE ROOM. USING A 25-GAUGE NEEDLE, TRIGGER POINTS WERE INJECTED AT THE LEFT LOWER BACK AREA WITH A TOTAL OF 40 ML OF BUPIVACAINE 0.25% AND KENALOG 40 MG. THE MEDICATIONS WERE VERIFIED WITH THE NURSE. THERE WAS NO EVIDENCE OF BLOOD OR PARESTHESIA DURING THE PROCEDURE. THE PATIENT WAS SENT TO THE RECOVERY ROOM. THE PATIENT WAS MOVING THE EXTREMITIES AND DOING WELL. THERE WERE NO COMPLICATIONS DURING THE PROCEDURE. ESTIMATED BLOOD LOSS WAS LESS THAN 5 ML POST PROCEDURE NOTE DEPENDING ON THE RESULTS, CONSIDER WORKING OVER THE FACETS. THE PROCEDURE DONE WAS DISCUSSED WITH THE PATIENT. THE PATIENT WILL BE SEEN IN A FOLLOW UP IN THE NEXT FEW WEEKS. I AM LOOKING FOR LONG LASTING PAIN RELIEF FOR THE PATIENT WITH THIS INTERVENTION. INSTRUCTIONS WERE GIVEN, QUESTIONS WERE ANSWERED, AND THE PATIENT EXPRESSED UNDERSTANDING AND AGREES WITH THE PLAN. I, FRANCOIS DILLON, DOCUMENTED THE ABOVE INFORMATION ACTING A SCRIBE FOR DR. DAVIS. I HAVE REVIEWED THE ABOVE DOCUMENT, WRITTEN BY FRANCOIS DILLON, QA TEST ANALYST, AND I VERIFY THAT IT IS ACCURATE PROCEDURE CODES 91348 INJ TRIGGER POINT 11/13 [facility] DISPOSITION & COMMUNICATION FOLLOW UP FOLLOW UP WITH COMPUTER PERIPHERAL EQUIPMENT OPERATOR (REASON: POST TPI LEFT LOWER BACK) ELECTRONICALLY SIGNED BY BIA DAVIS MD, MD ON 09/02/2020 AT 11:57 AM EDT DISCLAIMER : THIS IS A VISIT SUMMARY EXTRACTED FROM THE [employer] CHART. IT IS NOT A COPY OF THE [employer] PROGRESS NOTE. DARY
== END ==
LOC: M PAIN 14:30
PROVIDERS: ATTEND Anesthesiology
DX: M79.18 Myalgia, other site (principal); K21.9 Gastro-esophageal reflux disease without esophagitis; I10 Essential (primary) hypertension; Z79.82 Long term (current) use of aspirin; Z79.899 Other long term (current) drug therapy
CPT/HCPCS: 20552; J3301

== ENCOUNTER → 2020-08-31 | Outpatient (CLI) | payer OTHER ==
[~2020-08-31] MED LIST changes: -BUPIVACAINE HCL 0.25% 10ML VIAL As Ordered ONE; -BUPIVACAINE HCL 0.25% 30ML VIAL As Ordered ONE; -NORCO, ANEXSIA 5/325MG TABLET (HYDROcodone/ACETAMINOPHEN) As Ordered ONE; -TRIAMCINOLONE ACETONIDE SUSP 40 MG/ML VIAL (J3301) As Ordered ONE; -diazePAM 5 MG TAB As Ordered ONE
[2020-08-31 17:36] LABS: BASO % 0.3 % (0.0-1.0); EOS # 0.5 10^3/uL (0.0-0.5); EOS % 7.5 % (0.0-3.0); HEMATOCRIT 41.4 % (42.0-52.0); HEMOGLOBIN 13.7 g/dl (13.5-17.5); LYMPH # 1.3 10^3/uL (1.5-5.0); LYMPH % 17.6 % (24.0-44.0); MEAN CORPUSCULAR HGB CONC 33.1 g/dl (32.0-36.5); MEAN CORPUSCULAR VOLUME 96.7 fl (80.0-96.0); MONO # 0.7 10^3/uL (0.0-0.8); MONO % 9.2 % (0.0-5.0); NEUTROPHILS # 4.6 10^3/uL (1.5-8.5); NEUTROPHILS % 65.1 % (36.0-66.0); PLATELET COUNT, AUTOMATED 278 10^3/uL (150-450); RED BLOOD COUNT 4.28 10^6/uL (4.30-6.10); WHITE BLOOD COUNT 7.1 10^3/uL (4.0-10.0)
[2020-08-31 18:01] LABS: ALBUMIN 3.7 GM/DL (3.2-5.2); ALT/SGPT 29 U/L (12-78); BILIRUBIN,TOTAL 0.8 MG/DL (0.2-1.0); BLOOD UREA NITROGEN 15 MG/DL (7-18); CALCIUM LEVEL 10.4 MG/DL (8.8-10.2); CARBON DIOXIDE LEVEL 28 MEQ/L (21-32); CHLORIDE LEVEL 106 MEQ/L (98-107); CHOLESTEROL LEVEL 155 MG/DL (<200); CHOLESTEROL RISK RATIO 2.152 (<5); CREATININE FOR GFR 0.89 MG/DL (0.70-1.30); GLOMERULAR FILTRATION RATE > 60.0 (>42); GLUCOSE, FASTING 82 MG/DL (70-100); HDL CHOLESTEROL 72 MG/DL (>40); LDL CHOLESTEROL 57 MG/DL (<100); NON-HDL-C 83 MG/DL; POTASSIUM SERUM 4.8 MEQ/L (3.5-5.1); SODIUM LEVEL 139 MEQ/L (136-145); TOTAL PROTEIN 6.7 GM/DL (6.4-8.2); TRIGLYCERIDES LEVEL 128 MG/DL (<150)
[2020-08-31 18:07] LABS: TOTAL 25(OH) VITAMIN D 33.9 NG/ML (30.0-100.0)
== END ==
LOC: M LAB 16:51
PROVIDERS: ATTEND Physician Assistant
DX: E78.00 Pure hypercholesterolemia, unspecified (principal); Z12.5 Encounter for screening for malignant neoplasm of prostate; Z79.899 Other long term (current) drug therapy
CPT/HCPCS: 36415; 80053; 80061; 82306; 83036; 85025; G0103

== ENCOUNTER → 2020-10-19 | Outpatient (CLI) | payer OTHER ==
--- NOTE | 2020-10-21 04:11 | ECWPNPC ---
PATIENT NAME: LEA BURNS : 1945 GENDER: MALE VISIT DATE: 10/19/2020 DISCHARGE DATE: 10/19/20 1522 VISIT LOCKED DATE TIME: PHYSICIAN: MERRY TORRES RESOURCE: MERRY TORRES REASON FOR APPOINTMENT 1. MYALGIA HISTORY OF PRESENT ILLNESS GENERAL: - 75-YEAR-OLD MALE IN FOR CHRONIC PAIN FOLLOW-UP. HE FEELS THE LAST TRIGGER POINT INJECTIONS HE RECEIVED CONTINUE TO WORK TODAY. HE RATES HIS PAIN CURRENTLY AT A 2 OUT OF 10 AND DESCRIBES IT ACHING. FALL RISK SCREENING: SCREENING :NO FALLS REPORTED IN THE LAST YEAR PAIN SCREENING: PATIENT HAS A COMPLAINT OF ACUTE OR CHRONIC PAIN :YES LOCATION OF PAIN:LOW BACK, LEG(S) INTENSITY OF PAIN (SCALE OF 1 TO 10):2 WHAT DOES YOUR PAIN FEEL LIKE:ACHING DURATION:CONTINOUS, CONSTANT PAIN IS INCREASED BY:ACTIVITIES PAIN IS DECREASED BY:USE OF PAIN MEDICATIONS TREATMENT/MEDICATIONS USED TO MANAGE PAIN:OTC PAIN RELIEVERS LEVEL OF RELIEF FROM PAIN TREATMENTS IN THE PAST:100% PAIN HAS INTERFERED WITH THE FOLLOWING: NO NURSING NOTE: -. PAIN CENTER INTAKE QUESTIONS: DO YOU HAVE A HISTORY OF MRSA? :NO DO YOU TAKE A BLOOD THINNERS? :YES PLAVIX DO YOU HAVE ANY BLEEDING DISORDERS? :NO ANY NEW NUMBNESS OR WEAKNESS IN YOUR LEGS OR ARMS? :NO ANY PACEMAKER,DEFIBRILLATOR, OR DORSAL COLUMN STIMULATOR? :NO DO YOU HAVE ANY RASHES OR OPEN SORES? :NO ARE YOU ALLERGIC TO IV DYE? :NO ARE YOU DIABETIC? :NO ANY NEW PROBLEMS WITH YOUR MEDICATIONS? :NO HAVE YOU RECEIVED A VACCINE IN THE PAST 30 DAYS? :NO DO YOU PLAN TO RECEIVE A VACCINE IN THE NEXT 21 DAYS? :YES IF SO WHAT VACCINE AND WHEN? SHINGLES VACCINE DO YOU NEED ANY PRESCRIPTION? :NO DO YOU TAKE ANY IMMUNOSUPPRESSIVE MEDICATIONS? :NO IS THERE A CHANCE YOU COULD BE ? :NO ARE YOU BREAST FEEDING? :NO CURRENT MEDICATIONS TAKING ALBUTEROL SULFATE (2.5 MG/3ML) 0.083% NEBULIZATION SOLUTION 3 ML NEEDED INHALATION EVERY 6 HRS TAKING ASPIR-LOW 81 MG TABLET DELAYED RELEASE 1 TABLET ORALLY ONCE A DAY TAKING PANTOPRAZOLE SODIUM 40 MG TABLET DELAYED RELEASE 1 TABLET ORALLY ONCE A DAY TAKING VITAMIN B1 100 MG TABLET 1 TABLET ORALLY ONCE A DAY TAKING METOPROLOL TARTRATE 25 MG TABLET 1 TABLET WITH FOOD ORALLY DAILY TAKING ATORVASTATIN CALCIUM 40 MG TABLET 1 TABLET ORALLY ONCE A DAY TAKING CLOPIDOGREL BISULFATE 75 MG TABLET 1 TABLET ORALLY ONCE A DAY TAKING FOLIC ACID 1 MG TABLET 1 TABLET ORALLY ONCE A DAY TAKING CITALOPRAM HYDROBROMIDE 10 MG TABLET 1 TABLET ORALLY ONCE A DAY TAKING MAY HAVE - - TAKING TYLENOL WITH CODEINE #3 300-30 MG TABLET 1 TABLET NEEDED ORALLY EVERY 6 HRS TAKING VITAMIN D 50 MCG (2000 UT) CAPSULE 1 CAPSULE ORALLY ONCE A DAY TAKING TRAZODONE HCL 50 MG TABLET 1 TABLET AT BEDTIME NEEDED ORALLY ONCE A DAY TAKING VIAGRA 100 MG TABLET 1 TABLET NEEDED ORALLY ONCE A DAY NOT-TAKING GABAPENTIN 300 MG CAPSULE 1 CAPSULE ORALLY ONCE A DAY PRN MEDICATION LIST REVIEWED AND RECONCILED WITH THE PATIENT PAST MEDICAL HISTORY GERD HYPERTENSION HYPERLIPIDEMIA BACK PAIN ALLERGIES N.K.D.A. SURGICAL HISTORY BACK SURGERY 61YRS REMOVAL OF COLON 60% DIVERTICULOSIS 60 YRS LASER SURGERY 2017 RIGHT HERNIA REMOVAL 63 YRS HEART SURGERY 10/25/2019 FAMILY HISTORY FATHER: , PARKINSON'S MOTHER: , DIABETES SIBLINGS: ALIVE 1 SISTER(S) - HEALTHY. SOCIAL HISTORY GENERAL: TOBACCO USE ARE YOU A:NONSMOKER LATEX QUESTIONNAIRE LATEX ALLERGY : HAVE YOU EVER DEVELOPED ANY TYPE OF REACTION AFTER HANDLING LATEX PRODUCTS SUCH RUBBER GLOVES, CONDOMS, DIAPHRAGMS, BALLOONS, SOCKS, OR UNDERWEAR?NO LATEX ALLERGY : HAVE YOU EVER DEVELOPED ANY TYPE OF REACTION DURING OR AFTER DENTAL APPOINTMENT, VAGINAL/RECTAL EXAMINATION, SURGICAL PROCEDURE, OR ANY OTHER EXPOSURE?NO DATE ASKED : 08/26/2020 LATEX RISK : HAVE YOU EVER HAD ANY DIFFICULTY BREATHING OR HIVES AFTER EATING OR HANDLING ANY FRUITS, OR VEGETABLES; SUCH KIWI, BANANAS, STONE FRUITS, OR CHESTNUTSNO LATEX RISK : DO YOU HAVE A PREVIOUS PERSONAL HISTORY OF MORE THAN NINE SURGERIES, SPINA BIFIDA, OR REPEATED CATHERIZATIONS? NO LATEX RISK : ARE YOU FREQUENTLY EXPOSED TO LATEX PRODUCTS IN YOUR OCCUPATION?NO ALCOHOL SCREENING DID YOU HAVE A DRINK CONTAINING ALCOHOL IN THE PAST YEAR?YES HOW OFTEN DID YOU HAVE SIX OR MORE DRINKS ON ONE OCCASION IN THE PAST YEAR?NEVER (0 POINTS) HOW MANY DRINKS DID YOU HAVE ON A TYPICAL DAY WHEN YOU WERE DRINKING IN THE PAST YEAR?3 OR 4 (1 POINT) HOW OFTEN DID YOU HAVE A DRINK CONTAINING ALCOHOL IN THE PAST YEAR?TWO TO FOUR TIMES A MONTH (2 POINTS) POINTS3 INTERPRETATIONNEGATIVE RECREATIONAL DRUG USE DRUG USE?NO CAFFEINE CAFFEINE USE?YES 1 CUP DAILY COFFEE AND TEA LANGUAGE LANGUAGES SPOKEN:YI LEARNING BARRIERS / SPECIAL NEEDS CHANGE FROM LAST VISIT?NO BARRIERS TO LEARNING?NO HEARING IMPAIRED?NO VISION IMPAIRED?YES COGNITIVELY IMPAIRED?NO :CORRECTIVE LENSES READINESS TO LEARN?YES LEARNING PREFERENCES?NO LEARNING CAPABILITIES PRESENT?YES EMOTIONAL BARRIERS?NO SPECIAL DEVICES?YES :CANE SHAKE LOADER NEEDED?NO DOMESTIC VIOLENCE DO YOU FEEL SAFE IN YOUR ENVIRONMENT?YES PAIN CLINIC PFS, CLERGY, PUBLIC HEALTH REFERRALS HAS THE PATIENT BEEN EDUCATED REGARDING HIS/HER PLAN OF CARE?YES HAS THE PATIENT BEEN EDUCATED REGARDING PAIN, THE RISK FOR PAIN, THE IMPORTANCE OF EFFECTIVE PAIN MANAGEMENT, AND THE PAIN ASSESSMENT PROCESS?YES ADVANCE DIRECTIVE ADVANCE DIRECTIVE DISCUSSED WITH PATIENT:YES PT STATES HE DOES NOT HAVE ANY ADVANCED DIRECTIVES AND HE DECLINES HCP INFORMATION AT THIS TIME HOSPITALIZATION/MAJOR DIAGNOSTIC PROCEDURE ABOVE REVIEW OF SYSTEMS CONSTITUTIONAL: ANY RECENT FEVER NO . CHILLS NO . WEIGHT CHANGE OF UNKNOWN REASONS NO . GASTROENTEROLOGY: NEW UNEXPLAINABLE CHANGES IN BOWEL CONTROL NO . CONSTIPATION NO . GENITOURINARY: ANY NEW CHANGE IN BLADDER CONTROL? NO . NEUROLOGY: NEW ONSET DIZZINESS OR NEUROLOGICAL CHANGES NOT MENTIONED NO . NEW NUMBNESS OR PAIN PATTERNS NOT MENTIONED AND PERTINENT TO TODAY'S VISIT NO . CARDIOLOGY: NEW CHEST PRESSURE NO . NEW CHEST PAIN NO . RESPIRATORY: UNEXPLAINABLE COUGH NO . NEW SHORTNESS OF BREATH NO . VITAL SIGNS WT 190 LBS, HT 59 IN, BMI 38.37 INDEX, BP 117/73 MM HG, HR 75 /MIN, RR 18 /MIN, TEMP 98.4 F, OXYGEN SAT % 98%, SAFE IN ENV? (Y/N) Y, NA INITIALS 14:55, REVIEWED BY: JENNIE. EXAMINATION GENERAL EXAMINATION: GENERALNO ACUTE DISTRESS, WELL NOURISHED AND HYDRATED. PSYCHAPPROPRIATE MOOD AND AFFECT . LUNGS:CLEAR TO AUSCULTATION BILATERALLY, NO WHEEZES, RHONCHI, RALES. HEART:NO MURMURS, REGULAR RATE AND RHYTHM. ASSESSMENTS MYALGIA, OTHER SITE - M79.18 (PRIMARY) TREATMENT MYALGIA, OTHER SITE NOTES: 75-YEAR-OLD MALE IN FOR CHRONIC PAIN FOLLOW-UP. GIVEN PRESENTING SYMPTOMS RECOMMEND FOLLOW-UP IN ONE MONTH. PATIENT HAS EXPRESSED UNDERSTANDING OF AND WAS IN AGREEMENT WITH TREATMENT PLAN. GIVEN TIME TO ASK QUESTIONS AND EXPRESS CONCERNS. . PROCEDURE CODES FA211 ESTABILISHED PATIENT [facility] FACILITY CHARGE DISPOSITION & COMMUNICATION FOLLOW UP 4 WEEKS (REASON: MYALGIA) ELECTRONICALLY SIGNED BY MARYJANE FELICIANO ON 10/20/2020 AT 09:26 AM EST DISCLAIMER : THIS IS A VISIT SUMMARY EXTRACTED FROM THE [employer] CHART. IT IS NOT A COPY OF THE [employer] PROGRESS NOTE. DARY
== END ==
LOC: M PAIN 14:45
PROVIDERS: ATTEND Family Medicine
DX: M79.18 Myalgia, other site (principal); K21.9 Gastro-esophageal reflux disease without esophagitis; I10 Essential (primary) hypertension; E78.5 Hyperlipidemia, unspecified; M54.9 Dorsalgia, unspecified

== ENCOUNTER → 2020-10-22 | Outpatient (CLI) | payer OTHER ==
--- NOTE | 2020-10-25 23:16 | ECWPNPC ---
PATIENT NAME: LEA BURNS : 1945 GENDER: MALE VISIT DATE: 10/22/2020 DISCHARGE DATE: 10/22/20 1018 VISIT LOCKED DATE TIME: PHYSICIAN: MERRY TORRES RESOURCE: MERRY TORRES REASON FOR APPOINTMENT 1. INCREASED BACK PAIN-REQUESTING A PROCEDURE HISTORY OF PRESENT ILLNESS PAIN CENTER INTAKE QUESTIONS: 75-YEAR-OLD MALE IN FOR COMPLAINTS OF INCREASED PAIN. HE RATES HIS PAIN CURRENTLY AT A 2 OUT OF 10 AND DESCRIBES IT ACHING, CONTINUOUS, AND SORE. GENERAL: - -. FALL RISK SCREENING: SCREENING :NO FALLS REPORTED IN THE LAST YEAR NURSING NOTE: - -. PAIN SCREENING: PATIENT HAS A COMPLAINT OF ACUTE OR CHRONIC PAIN :YES PAIN HAS INTERFERED WITH THE FOLLOWING:ENJOYMENT OF LIFE,WALKING ABILITY PAIN IS DECREASED BY:SITTING PAIN IS INCREASED BY:ACTIVITIES WHAT DOES YOUR PAIN FEEL LIKE:ACHING,CONTINOUS,SORE INTENSITY OF PAIN (SCALE OF 1 TO 10):2 LOCATION OF PAIN:LOW BACK CURRENT MEDICATIONS TAKING ALBUTEROL SULFATE (2.5 MG/3ML) 0.083% NEBULIZATION SOLUTION 3 ML NEEDED INHALATION EVERY 6 HRS TAKING ASPIR-LOW 81 MG TABLET DELAYED RELEASE 1 TABLET ORALLY ONCE A DAY TAKING PANTOPRAZOLE SODIUM 40 MG TABLET DELAYED RELEASE 1 TABLET ORALLY ONCE A DAY TAKING VITAMIN B1 100 MG TABLET 1 TABLET ORALLY ONCE A DAY TAKING METOPROLOL TARTRATE 25 MG TABLET 1 TABLET WITH FOOD ORALLY DAILY TAKING ATORVASTATIN CALCIUM 40 MG TABLET 1 TABLET ORALLY ONCE A DAY TAKING CLOPIDOGREL BISULFATE 75 MG TABLET 1 TABLET ORALLY ONCE A DAY TAKING FOLIC ACID 1 MG TABLET 1 TABLET ORALLY ONCE A DAY TAKING CITALOPRAM HYDROBROMIDE 10 MG TABLET 1 TABLET ORALLY ONCE A DAY TAKING MAY HAVE - - TAKING TYLENOL WITH CODEINE #3 300-30 MG TABLET 1 TABLET NEEDED ORALLY EVERY 6 HRS TAKING VITAMIN D 50 MCG (1999 UT) CAPSULE 1 CAPSULE ORALLY ONCE A DAY TAKING TRAZODONE HCL 50 MG TABLET 1 TABLET AT BEDTIME NEEDED ORALLY ONCE A DAY TAKING VIAGRA 100 MG TABLET 1 TABLET NEEDED ORALLY ONCE A DAY NOT-TAKING GABAPENTIN 300 MG CAPSULE 1 CAPSULE ORALLY ONCE A DAY PRN MEDICATION LIST REVIEWED AND RECONCILED WITH THE PATIENT PAST MEDICAL HISTORY GERD HYPERTENSION HYPERLIPIDEMIA BACK PAIN ALLERGIES N.K.D.A. SURGICAL HISTORY BACK SURGERY 61YRS REMOVAL OF COLON 60% DIVERTICULOSIS 60 YRS LASER SURGERY 2017 RIGHT HERNIA REMOVAL 63 YRS HEART SURGERY 10/25/2019 FAMILY HISTORY FATHER: , PARKINSON'S MOTHER: , DIABETES SIBLINGS: ALIVE 1 SISTER(S) - HEALTHY. SOCIAL HISTORY GENERAL: TOBACCO USE ARE YOU A:NONSMOKER LATEX QUESTIONNAIRE LATEX ALLERGY : HAVE YOU EVER DEVELOPED ANY TYPE OF REACTION AFTER HANDLING LATEX PRODUCTS SUCH RUBBER GLOVES, CONDOMS, DIAPHRAGMS, BALLOONS, SOCKS, OR UNDERWEAR?NO LATEX ALLERGY : HAVE YOU EVER DEVELOPED ANY TYPE OF REACTION DURING OR AFTER DENTAL APPOINTMENT, VAGINAL/RECTAL EXAMINATION, SURGICAL PROCEDURE, OR ANY OTHER EXPOSURE?NO LATEX RISK : HAVE YOU EVER HAD ANY DIFFICULTY BREATHING OR HIVES AFTER EATING OR HANDLING ANY FRUITS, OR VEGETABLES; SUCH KIWI, BANANAS, STONE FRUITS, OR CHESTNUTSNO LATEX RISK : DO YOU HAVE A PREVIOUS PERSONAL HISTORY OF MORE THAN NINE SURGERIES, SPINA BIFIDA, OR REPEATED CATHERIZATIONS? NO LATEX RISK : ARE YOU FREQUENTLY EXPOSED TO LATEX PRODUCTS IN YOUR OCCUPATION?NO DATE ASKED : 10/22/2020 ALCOHOL SCREENING DID YOU HAVE A DRINK CONTAINING ALCOHOL IN THE PAST YEAR?YES HOW OFTEN DID YOU HAVE SIX OR MORE DRINKS ON ONE OCCASION IN THE PAST YEAR?NEVER (0 POINTS) HOW MANY DRINKS DID YOU HAVE ON A TYPICAL DAY WHEN YOU WERE DRINKING IN THE PAST YEAR?3 OR 4 (1 POINT) HOW OFTEN DID YOU HAVE A DRINK CONTAINING ALCOHOL IN THE PAST YEAR?TWO TO FOUR TIMES A MONTH (2 POINTS) POINTS3 INTERPRETATIONNEGATIVE RECREATIONAL DRUG USE DRUG USE?NO CAFFEINE CAFFEINE USE?YES 1 CUP DAILY COFFEE AND TEA LANGUAGE LANGUAGES SPOKEN:FILIPINO LEARNING BARRIERS / SPECIAL NEEDS CHANGE FROM LAST VISIT?NO BARRIERS TO LEARNING?NO HEARING IMPAIRED?NO VISION IMPAIRED?YES COGNITIVELY IMPAIRED?NO :CORRECTIVE LENSES READINESS TO LEARN?YES LEARNING PREFERENCES?NO LEARNING CAPABILITIES PRESENT?YES EMOTIONAL BARRIERS?NO SPECIAL DEVICES?YES :CANE HEAVY MOBILE EQUIPMENT REPAIRER NEEDED?NO DOMESTIC VIOLENCE DO YOU FEEL SAFE IN YOUR ENVIRONMENT?YES PAIN CLINIC PFS, CLERGY, PUBLIC HEALTH REFERRALS HAS THE PATIENT BEEN EDUCATED REGARDING HIS/HER PLAN OF CARE?YES HAS THE PATIENT BEEN EDUCATED REGARDING PAIN, THE RISK FOR PAIN, THE IMPORTANCE OF EFFECTIVE PAIN MANAGEMENT, AND THE PAIN ASSESSMENT PROCESS?YES ADVANCE DIRECTIVE ADVANCE DIRECTIVE DISCUSSED WITH PATIENT:YES PT STATES HE DOES NOT HAVE ANY ADVANCED DIRECTIVES AND HE DECLINES HCP INFORMATION AT THIS TIME HOSPITALIZATION/MAJOR DIAGNOSTIC PROCEDURE ABOVE REVIEW OF SYSTEMS CONSTITUTIONAL: ANY RECENT FEVER NO . CHILLS NO . WEIGHT CHANGE OF UNKNOWN REASONS NO . GASTROENTEROLOGY: NEW UNEXPLAINABLE CHANGES IN BOWEL CONTROL NO . CONSTIPATION NO . GENITOURINARY: ANY NEW CHANGE IN BLADDER CONTROL? NO . NEUROLOGY: NEW ONSET DIZZINESS OR NEUROLOGICAL CHANGES NOT MENTIONED NO . NEW NUMBNESS OR PAIN PATTERNS NOT MENTIONED AND PERTINENT TO TODAY'S VISIT NO . CARDIOLOGY: NEW CHEST PRESSURE NO . NEW CHEST PAIN NO . RESPIRATORY: UNEXPLAINABLE COUGH NO . NEW SHORTNESS OF BREATH NO . VITAL SIGNS WT 190 LBS, HT 59 IN, BMI 38.37 INDEX, BP 109/61 MM HG, HR 77 /MIN, RR 18 /MIN, TEMP 97.6 F, OXYGEN SAT % 99%, NA INITIALS AW 0959. EXAMINATION GENERAL EXAMINATION: GENERALNO ACUTE DISTRESS, WELL NOURISHED AND HYDRATED. PSYCHAPPROPRIATE MOOD AND AFFECT . LUNGS:CLEAR TO AUSCULTATION BILATERALLY, NO WHEEZES, RHONCHI, RALES. HEART:NO MURMURS, REGULAR RATE AND RHYTHM. BACK:POINT TENDER BILATERAL LOW BACK, SURROUNDING SKIN SHOWS NO ERYTHEMA, ECCHYMOSIS, INCREASED WARMTH, AND/OR SKIN ERUPTIONS NOTED. BANDS OF RESTRICTIVE TISSUES NOTED OVER TRIGGER POINTS . ASSESSMENTS MYALGIA, OTHER SITE - M79.18 (PRIMARY) TREATMENT MYALGIA, OTHER SITE NOTES: 75-YEAR-OLD MALE IN FOR CHRONIC PAIN FOLLOW-UP. GIVEN PRESENTING SYMPTOMS AND RESULTS OF PHYSICAL EXAMINATION RECOMMEND BILATERAL LOW BACK TRIGGER POINT INJECTIONS WITH POST PROCEDURAL FOLLOW-UP. PATIENT HAS EXPRESSED UNDERSTANDING OF AND WAS IN AGREEMENT WITH TREATMENT PLAN. GIVEN TIME TO ASK QUESTIONS AND EXPRESS CONCERNS. . PROCEDURE CODES FA211 ESTABILISHED PATIENT [facility] CHARGE DISPOSITION & COMMUNICATION FOLLOW UP POSTPROCEDURE (REASON: BILATERAL LOW BACK TRIGGER POINT INJECTIONS) ELECTRONICALLY SIGNED BY MARYJANE FELICIANO ON 10/25/2020 AT 08:52 AM EST DISCLAIMER : THIS IS A VISIT SUMMARY EXTRACTED FROM THE [employer] CHART. IT IS NOT A COPY OF THE [employer] PROGRESS NOTE. DARY
== END ==
LOC: M PAIN 09:30
PROVIDERS: ATTEND Family Medicine
DX: M79.18 Myalgia, other site (principal); K21.9 Gastro-esophageal reflux disease without esophagitis; Z79.82 Long term (current) use of aspirin; Z79.899 Other long term (current) drug therapy

== ENCOUNTER → 2020-11-25 | Outpatient (CLI) | payer OTHER | LOC: M LABSMTC 13:19 | PROVIDERS: ATTEND Anesthesiology | DX: Z20.822 Contact with and (suspected) exposure to COVID-19 (principal) ==

== ENCOUNTER → 2020-11-30 | Outpatient (CLI) | payer MEDICARE ==
--- NOTE | 2020-12-02 02:38 | ECWPNPC ---
PATIENT NAME: LEA BURNS : 1945 GENDER: MALE VISIT DATE: 11/30/2020 DISCHARGE DATE: 11/30/20 1117 VISIT LOCKED DATE TIME: PHYSICIAN: BIA DAVIS MD RESOURCE: BIA DAVIS MD REASON FOR APPOINTMENT 1. BILATERAL LOW BACK HISTORY OF PRESENT ILLNESS GENERAL: 75-YEAR-OLD MALE PATIENT WITH A HISTORY OF CHRONIC BACK PAIN. THE PATIENT RECEIVED SOME TRIGGGER POINT INJECTIONS IN THE PAST AND THEY HAVE WORKED VERY WELL FOR HIM. PRESENTLY, HE HAS MORE OF A DULLNESS IN THE BACK AND SOMETIMES HAS A LANCINATING PAIN DOWN THE LEG BUT ONLY TWICE A MONTH. THE PATIENT STATES THAT RIGHT NOW HIS PAIN IS A 2-3/10 AND BEFORE THE LAST TRIGGER POINT HIS PAIN WAS AN 8-10/10. HE IS VERY HAPPY WITH THE RESULTS. -. FALL RISK SCREENING: SCREENING :NO FALLS REPORTED IN THE LAST YEAR PAIN SCREENING: PATIENT HAS A COMPLAINT OF ACUTE OR CHRONIC PAIN :NO PT WAS ORIGINALLY SCHEDULED FOR A TRIGGER POINT INJECTION, BUT IS NOT EXPERIENCING ANY PAIN SO CHAGED TO A FOLLOW UP APPT. PT CAN CALL WHE HE FEELS HE NEEDS A TRIGGER POINT INJECTION IN THE NEXT 2 MONTHS PT COUNCELED TO CALL AND MAKE AN APPT IF IT IS LONGER THAN 3 MONTHS FOR A FOLLOW UP IF NO TRIGGER POINT INJECTIONS ARE NEEDED. PT VERBALIZES UNDERSTANDING NURSING NOTE: -. PAIN CENTER INTAKE QUESTIONS: DO YOU HAVE A HISTORY OF MRSA? :NO DO YOU TAKE A BLOOD THINNERS? :YES PT IS ON [place] DO YOU HAVE ANY BLEEDING DISORDERS? :NO ANY NEW NUMBNESS OR WEAKNESS IN YOUR LEGS OR ARMS? :NO ANY PACEMAKER,DEFIBRILLATOR, OR DORSAL COLUMN STIMULATOR? :NO DO YOU HAVE ANY RASHES OR OPEN SORES? :NO ARE YOU ALLERGIC TO IV DYE? :NO ARE YOU DIABETIC? :NO ANY NEW PROBLEMS WITH YOUR MEDICATIONS? :NO HAVE YOU RECEIVED A VACCINE IN THE PAST 30 DAYS? :NO DO YOU PLAN TO RECEIVE A VACCINE IN THE NEXT 21 DAYS? :NO DO YOU NEED ANY PRESCRIPTION? :NO DO YOU TAKE ANY IMMUNOSUPPRESSIVE MEDICATIONS? :NO IS THERE A CHANCE YOU COULD BE ? :NO ARE YOU BREAST FEEDING? :NO CURRENT MEDICATIONS TAKING ALBUTEROL SULFATE (2.5 MG/3ML) 0.083% NEBULIZATION SOLUTION 3 ML NEEDED INHALATION EVERY 6 HRS TAKING ASPIR-LOW 81 MG TABLET DELAYED RELEASE 1 TABLET ORALLY ONCE A DAY TAKING PANTOPRAZOLE SODIUM 40 MG TABLET DELAYED RELEASE 1 TABLET ORALLY ONCE A DAY TAKING VITAMIN B1 100 MG TABLET 1 TABLET ORALLY ONCE A DAY TAKING METOPROLOL TARTRATE 25 MG TABLET 1 TABLET WITH FOOD ORALLY DAILY TAKING ATORVASTATIN CALCIUM 40 MG TABLET 1 TABLET ORALLY ONCE A DAY TAKING CLOPIDOGREL BISULFATE 75 MG TABLET 1 TABLET ORALLY ONCE A DAY TAKING FOLIC ACID 1 MG TABLET 1 TABLET ORALLY ONCE A DAY TAKING CITALOPRAM HYDROBROMIDE 10 MG TABLET 1 TABLET ORALLY ONCE A DAY TAKING MAY HAVE - - TAKING TYLENOL WITH CODEINE #3 300-30 MG TABLET 1 TABLET NEEDED ORALLY EVERY 6 HRS TAKING VITAMIN D 50 MCG (2000 UT) CAPSULE 1 CAPSULE ORALLY ONCE A DAY TAKING TRAZODONE HCL 50 MG TABLET 1 TABLET AT BEDTIME NEEDED ORALLY ONCE A DAY TAKING VIAGRA 100 MG TABLET 1 TABLET NEEDED ORALLY ONCE A DAY NOT-TAKING GABAPENTIN 300 MG CAPSULE 1 CAPSULE ORALLY ONCE A DAY PRN MEDICATION LIST REVIEWED AND RECONCILED WITH THE PATIENT PAST MEDICAL HISTORY GERD HYPERTENSION HYPERLIPIDEMIA BACK PAIN ALLERGIES N.K.D.A. SURGICAL HISTORY BACK SURGERY 61YRS REMOVAL OF COLON 60% DIVERTICULOSIS 60 YRS LASER SURGERY 2017 RIGHT HERNIA REMOVAL 63 YRS HEART SURGERY 10/25/2019 FAMILY HISTORY FATHER: , PARKINSON'S MOTHER: , DIABETES SIBLINGS: ALIVE 1 SISTER(S) - HEALTHY. SOCIAL HISTORY GENERAL: TOBACCO USE ARE YOU A:NONSMOKER LATEX QUESTIONNAIRE LATEX ALLERGY : HAVE YOU EVER DEVELOPED ANY TYPE OF REACTION AFTER HANDLING LATEX PRODUCTS SUCH RUBBER GLOVES, CONDOMS, DIAPHRAGMS, BALLOONS, SOCKS, OR UNDERWEAR?NO LATEX ALLERGY : HAVE YOU EVER DEVELOPED ANY TYPE OF REACTION DURING OR AFTER DENTAL APPOINTMENT, VAGINAL/RECTAL EXAMINATION, SURGICAL PROCEDURE, OR ANY OTHER EXPOSURE?NO DATE ASKED : 10/22/2020 LATEX RISK : HAVE YOU EVER HAD ANY DIFFICULTY BREATHING OR HIVES AFTER EATING OR HANDLING ANY FRUITS, OR VEGETABLES; SUCH KIWI, BANANAS, STONE FRUITS, OR CHESTNUTSNO LATEX RISK : DO YOU HAVE A PREVIOUS PERSONAL HISTORY OF MORE THAN NINE SURGERIES, SPINA BIFIDA, OR REPEATED CATHERIZATIONS? NO LATEX RISK : ARE YOU FREQUENTLY EXPOSED TO LATEX PRODUCTS IN YOUR OCCUPATION?NO ALCOHOL SCREENING DID YOU HAVE A DRINK CONTAINING ALCOHOL IN THE PAST YEAR?YES HOW OFTEN DID YOU HAVE SIX OR MORE DRINKS ON ONE OCCASION IN THE PAST YEAR?NEVER (0 POINTS) HOW MANY DRINKS DID YOU HAVE ON A TYPICAL DAY WHEN YOU WERE DRINKING IN THE PAST YEAR?3 OR 4 (1 POINT) HOW OFTEN DID YOU HAVE A DRINK CONTAINING ALCOHOL IN THE PAST YEAR?TWO TO FOUR TIMES A MONTH (2 POINTS) POINTS3 INTERPRETATIONNEGATIVE RECREATIONAL DRUG USE DRUG USE?NO CAFFEINE CAFFEINE USE?YES 1 CUP DAILY COFFEE AND TEA LANGUAGE LANGUAGES SPOKEN:TRISTANIAN LEARNING BARRIERS / SPECIAL NEEDS CHANGE FROM LAST VISIT?NO BARRIERS TO LEARNING?NO HEARING IMPAIRED?NO VISION IMPAIRED?YES COGNITIVELY IMPAIRED?NO :CORRECTIVE LENSES READINESS TO LEARN?YES LEARNING PREFERENCES?NO LEARNING CAPABILITIES PRESENT?YES EMOTIONAL BARRIERS?NO 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 PLACING NEEDED?NO DOMESTIC VIOLENCE DO YOU FEEL SAFE IN YOUR ENVIRONMENT?YES - HAS THE PATIENT BEEN EDUCATED REGARDING HIS/HER PLAN OF CARE?YES HAS THE PATIENT BEEN EDUCATED REGARDING PAIN, THE RISK FOR PAIN, THE IMPORTANCE OF EFFECTIVE PAIN MANAGEMENT, AND THE PAIN ASSESSMENT PROCESS?YES ADVANCE DIRECTIVE ADVANCE DIRECTIVE DISCUSSED WITH PATIENT:YES PT STATES HE DOES NOT HAVE ANY ADVANCED DIRECTIVES AND HE DECLINES HCP INFORMATION AT THIS TIME HOSPITALIZATION/MAJOR DIAGNOSTIC PROCEDURE ABOVE VITAL SIGNS WT 188.8 LBS, HT 59 IN, BMI 38.13 INDEX, BP 117/70 MM HG, HR 86 /MIN, RR 18 /MIN, TEMP 96.7 F, OXYGEN SAT % 99%, SAFE IN ENV? (Y/N) YES, NA INITIALS SC 10:41, REVIEWED BY: DEMETRIUS. EXAMINATION GENERAL EXAMINATION: THE PATIENT IS ALERT, ORIENTED TIMES THREE AND COOPERATIVE. LUNGS ARE CLEAR TO AUSCULTATION. HEART SHOWS REGULAR RHYTHM, NO MURMURS AND NO GALLOPS. ASSESSMENTS MYALGIA, OTHER SITE - M79.18 (PRIMARY) TREATMENT MYALGIA, OTHER SITE CLINICAL NOTES: I DISCUSSED ALTERNATIVES WITH MR. BURNS. I FEEL THAT AT THE MOMENT THERE IS NO INDICATIONS FOR AN INJECTION. THE PATIENT WILL FOLLOW UP WITH THE NURSE PRACTITIONER AND IF THE PAIN COMES BACK HE WILL COME BACK FOR AN INJECTION. THE PATIENT AGREES WITH THE PLAN. I, FRANCOIS DILLON, DOCUMENTED THE ABOVE INFORMATION ACTING A SCRIBE FOR DR. DAVIS. I HAVE REVIEWED THE ABOVE DOCUMENT, WRITTEN BY FRANCOIS DILLON, WET CROWN BLOCKING OPERATOR, AND I VERIFY THAT IT IS ACCURATE. PROCEDURE CODES 98568 OFFICE/OUTPATIENT VISIT EST DISPOSITION & COMMUNICATION FOLLOW UP FOLLOW UP WITH DRILL PRESS TENDER MED MANAGEMENT (REASON: NO INJECTION WAS PERFORMED) ELECTRONICALLY SIGNED BY BIA DAVIS MD, MD ON 12/01/2020 AT 05:18 PM EST DISCLAIMER : THIS IS A VISIT SUMMARY EXTRACTED FROM THE [employer] CHART. IT IS NOT A COPY OF THE [employer] PROGRESS NOTE. DARY
== END ==
LOC: M PAIN 10:30
PROVIDERS: ATTEND Anesthesiology
DX: M79.18 Myalgia, other site (principal); K21.9 Gastro-esophageal reflux disease without esophagitis; I10 Essential (primary) hypertension; E78.5 Hyperlipidemia, unspecified; Z79.82 Long term (current) use of aspirin; Z79.02 Long term (current) use of antithrombotics/antiplatelets; Z79.899 Other long term (current) drug therapy

== ENCOUNTER → 2021-01-19 | Outpatient (CLI) | payer OTHER ==
--- NOTE | 2021-01-19 14:25 | REP ---
INDICATION: UNILATERAL PRIMARY OSTEOARTHRITIS COMPARISON: None. TECHNIQUE: AP, lateral, bilateral oblique and sunrise views of the right knee FINDINGS: Mild tricompartmental arthritic changes include minimal primarily medial and patellofemoral joint space narrowing along with very subtle early spurring along the lateral tibial plateau and lateral patellar margin. [place] view also demonstrates increased sclerosis and subtle fraying along the anterior patellar margin. No acute fracture or dislocation. No effusion. IMPRESSION: Mild arthritic changes <Electronically signed by Gera Hernandez > 01/19/21 1472
== END ==
LOC: M WUC 13:59
PROVIDERS: ATTEND Physician Assistant
DX: M17.11 Unilateral primary osteoarthritis, right knee (principal)

== ENCOUNTER → 2021-03-29 | Outpatient (CLI) | payer OTHER ==
--- NOTE | 2021-03-31 14:44 | SLEEPHOME ---
DATE: 03/29/2021 ORDERED BY: Dr. Salazar Diagnostic home sleep testing was performed due to concern for the obstructive sleep apnea syndrome in this patient with a history of hypersomnia. For testing, a nocturnal T3 respiratory monitoring device was used. Continuous record was made of pulse, oxygen saturation, air flow, chest and abdominal strain, and body position. There was 9 hours and 59 minutes of data reviewed. There was 9 hours marked as time in bed. During the interval marked time in bed, there were 306 respiratory events identified of 10 seconds in duration or greater for a respiratory event index of 34. The events were obstructive. Baseline pulse rate 67. Pulse rate ranged 45-171. Baseline saturation 93%. Saturations fell to 80%, and testing was performed in both the supine and nonsupine positions. IMPRESSION: Abnormal home sleep testing with repetitive respiratory events and oxygen desaturations to 80% with a respiratory event index of 34 is consistent with the obstructive sleep apnea syndrome. RECOMMENDATION: The patient should be encouraged to undergo formal sleep evaluation.
== END ==
LOC: M SLEEP HO 09:49
PROVIDERS: ATTEND Family Medicine
DX: G47.10 Hypersomnia, unspecified (principal)

== ENCOUNTER → 2021-05-20 | Outpatient (CLI) | payer OTHER ==
[2021-05-20 19:11] LABS: BASO % 0.4 % (0.0-1.0); EOS # 0.6 10^3/uL (0.0-0.5); EOS % 11.2 % (0.0-3.0); HEMATOCRIT 38.8 % (42.0-52.0); HEMOGLOBIN 12.8 g/dl (13.5-17.5); LYMPH # 1.2 10^3/uL (1.5-5.0); LYMPH % 21.8 % (24.0-44.0); MEAN CORPUSCULAR HEMOGLOBIN 31.4 pg (27.0-33.0); MEAN CORPUSCULAR VOLUME 95.3 fl (80.0-96.0); MONO # 0.5 10^3/uL (0.0-0.8); MONO % 9.4 % (2.0-8.0); NEUTROPHILS # 3.2 10^3/uL (1.5-8.5); NEUTROPHILS % 56.8 % (36.0-66.0); PLATELET COUNT, AUTOMATED 218 10^3/uL (150-450); RED BLOOD COUNT 4.07 10^6/uL (4.30-6.10); WHITE BLOOD COUNT 5.5 10^3/uL (4.0-10.0)
[2021-05-20 19:29] LABS: INR 0.86; PROTHROMBIN TIME 11.9 SECONDS (12.5-14.3)
[2021-05-20 19:30] LABS: PARTIAL THROMBOPLASTIN TIME 28.7 SECONDS (24.2-38.5)
[2021-05-20 19:34] LABS: HEMOGLOBIN A1c 5.7 %
[2021-05-20 19:39] LABS: ALBUMIN 3.7 GM/DL (3.2-5.2); ALT/SGPT 32 U/L (12-78); BILIRUBIN,TOTAL 0.9 MG/DL (0.2-1.0); BLOOD UREA NITROGEN 11 MG/DL (7-18); CALCIUM LEVEL 10.3 MG/DL (8.8-10.2); CARBON DIOXIDE LEVEL 25 MEQ/L (21-32); CHLORIDE LEVEL 109 MEQ/L (98-107); CREATININE FOR GFR 0.78 MG/DL (0.70-1.30); GLOMERULAR FILTRATION RATE > 60.0 (>42); GLUCOSE, FASTING 73 MG/DL (70-100); POTASSIUM SERUM 4.3 MEQ/L (3.5-5.1); SODIUM LEVEL 141 MEQ/L (136-145); TOTAL PROTEIN 6.8 GM/DL (6.4-8.2)
== END ==
LOC: M LAB 16:50
PROVIDERS: ATTEND Physician Assistant
DX: Z01.818 Encounter for other preprocedural examination (principal); Z79.01 Long term (current) use of anticoagulants

== ENCOUNTER → 2021-10-13 | Outpatient (REF) | payer OTHER ==
[~2021-10-13] MED LIST changes: +COMBAER6 INH; +PRED10TA2 PO
[2021-10-14 11:48] LABS: BASO % 0.5 % (0.0-1.0); EOS # 0.5 10^3/uL (0.0-0.5); EOS % 9.1 % (0.0-3.0); HEMATOCRIT 42.8 % (42.0-52.0); HEMOGLOBIN 14.1 g/dl (13.5-17.5); LYMPH # 1.3 10^3/uL (1.5-5.0); LYMPH % 22.6 % (24.0-44.0); MEAN CORPUSCULAR HEMOGLOBIN 31.7 pg (27.0-33.0); MEAN CORPUSCULAR HGB CONC 32.9 g/dl (32.0-36.5); MEAN CORPUSCULAR VOLUME 96.2 fl (80.0-96.0); MONO # 0.7 10^3/uL (0.0-0.8); MONO % 11.7 % (2.0-8.0); NEUTROPHILS # 3.1 10^3/uL (1.5-8.5); NEUTROPHILS % 55.7 % (36.0-66.0); PLATELET COUNT, AUTOMATED 266 10^3/uL (150-450); RED BLOOD COUNT 4.45 10^6/uL (4.30-6.10); WHITE BLOOD COUNT 5.6 10^3/uL (4.0-10.0)
[2021-10-14 12:13] LABS: HEMOGLOBIN A1c 5.7 %
[2021-10-14 13:13] LABS: ALBUMIN 4.1 GM/DL (3.2-5.2); ALT/SGPT 26 U/L (12-78); BILIRUBIN,TOTAL 1.2 MG/DL (0.2-1.0); BLOOD UREA NITROGEN 12 MG/DL (7-18); CALCIUM LEVEL 11.1 MG/DL (8.8-10.2); CARBON DIOXIDE LEVEL 29 MEQ/L (21-32); CHLORIDE LEVEL 103 MEQ/L (98-107); CHOLESTEROL LEVEL 154 MG/DL (<200); CHOLESTEROL RISK RATIO 2.053 (<5); CREATININE FOR GFR 0.92 MG/DL (0.70-1.30); GLOMERULAR FILTRATION RATE > 60.0 (>42); GLUCOSE, FASTING 84 MG/DL (70-100); HDL CHOLESTEROL 75 MG/DL (>40); HIV 1&2 SCREEN CENTAUR NEGATIVE (NEGATIVE); LDL CHOLESTEROL 53 MG/DL (<100); NON-HDL-C 79 MG/DL; SODIUM LEVEL 136 MEQ/L (136-145); TOTAL PROTEIN 7.3 GM/DL (6.4-8.2); TRIGLYCERIDES LEVEL 128 MG/DL (<150)
[2021-10-14 13:14] LABS: POTASSIUM SERUM 6.5 MEQ/L (3.5-5.1)
== END ==
LOC: M LABDRAWC 11:13
PROVIDERS: ATTEND Physician Assistant
DX: E78.00 Pure hypercholesterolemia, unspecified (principal); R73.01 Impaired fasting glucose
CPT/HCPCS: 36415; 80053; 80061; 83036; 85025; 87389; G0472

== ENCOUNTER 2021-10-14 18:55 | Emergency (ER) | payer OTHER ==
[~2021-10-14] VITALS: Ht 177.8 cm; Wt 86.8 kg
[2021-10-14 18:57] VITALS: BP 133/77
--- OUTSIDE RECORDS SUMMARY | 2021-10-14 19:09 | CCD | Continuity of Care Document ---
Author Author Sridhar SAAVEDRA I P.A. Organization Unknown Address [address] [place] [address] Phone [phone] Care Team Providers Care It Sales Representative Name Role Phone Daryl Vallecillo AUTM [phone] [facility] AUTM [phone] Evelio Winchester M.D. AUTM James Gabriel AUTM [phone] AUTM Unavailable AUTM Unavailable Problems Active Problems Provider Date Screening for malignant neoplasm of colon Gus Thakkar Onset: 12/26/2016 Benign neoplasm of colon Anthony Mina M.D. Onset: 017 Heartburn Anthony Mina M.D. Onset: 12/26/2016 History of excision of intestinal structure Anthony Mina M.D. Onset: 12/26/2016 Lipoma of skin and subcutaneous tissue of face Tod Verduzco MD Onset: 02/07/2017 Neoplasm of uncertain behavior of lip, oral cavity and phary nx Tod Verduzco MD Onset: 02/07/2017 Gastroesophageal reflux disease Tod Verduzco MD Onset: 0 12/12/2017 Difficulty speaking Tod Verduzco MD Onset: 12/12/2017 Otalgia Tod Verduzco MD Onset: 12/12/2017 Chronic rhinitis Tod Verduzco MD Onset: 12/12/2017 Impacted cerumen Tod Verduzco MD Onset: 12/12/2017 Obstructive sleep apnea syndrome Nathaly Mitchell Onset: 08/05/2021 Social History Type Date Description Comments Sex Unknown Tobacco Use Start: Unknown Never Smoked Cigarettes Tobacco Use Start: Unknown Never Smoked Cigars Tobacco Use Start: Unknown Never Smoked A Pipe Smoking Status Reviewed: 09/09/21 Never Smoked A Pipe Smokeless Tobacco Never Used Smokeless Tobacco ETOH Use Currently consumes alcohol [employer] /DRINK OCCASIONALLY Tobacco Use Start: Unknown Non Smoker Recreational Drug Use Denies Drug Use Allergies and adverse reactions Description No Known Drug Allergies Medications Active Medications SIG Qnty Indications Ordering Provide r Date Omeprazole 20mg Capsules DR 20 MG By Mouth Daily 30caps K21.9 Tod Verduzco MD 09/04/2017 Fluticasone Propionate 50mcg/Act Suspension 2 Sprays To Each Nostril Daily 32units J31.0 Tod weiner MD 09/04/2017 Immunizations Description No Information Available Vital Signs Date Vital Result Comment 09/09/2021 3:07pm BP Systolic 112 mmHg BP Diastolic 62 mmHg Heart Rate 77 /min O2 % BldC Oximetry 95 % Height 70 inches 5'10" Weight 193.00 lb BMI (Body Mass Index) 27.7 kg/m2 [place] Body Weight 166 lb Weight 87.545 kg BSA (Body Surface Area) 2.06 m2 09/09/2021 3:05pm Height 70 inches 5'10" Results Description No Information Available Procedures Date Code Description Status 09/09/2021 47773 Office/Outpatient Established Lo w MDM 20-29 Min Completed 08/05/2021 83775 Office/Outpatient New Low MDM 30 -44 Minutes Completed Medical Devices Description No Information Available Encounters Type Date Location Provider Dx Diagnosis Office Visit 09/09/2021 3:00p [facility] Pulmonary/Thoracic Dejuan Saavedra PSukhdevASukhdev G47.33 Obstructive sleep apnea (adult) (pediatr ic) Office Visit 08/05/2021 1:00p [facility] Pulmonary/Thoracic Dejuan Saavedra, PSukhdevASukhdev G47.33 Obstructive sleep apnea (adult) (pediatr ic) Assessments Date Code Description Provider 09/09/2021 G47.33 Obstructive sleep apnea (adult) (pediatric) Nathaly Mitchell 08/05/2021 G47.33 Obstructive sleep apnea (adult) (pediatric) Dejuan Saavedra PSukhdevASukhdev Plan of Treatment Future Appointment(s):* 12/09/2021 4:00 pm - Dejuan Saavedra PIsamar at [facility] Pulmonary/Thoracic * 10/14/2021 7:45 pm - [facility] Sleep Lab at [facility] Pulmonary/Thoracic 09/09/2021 - Nathaly Mitchell* G47.33 Obstructive sleep apnea (adult) (pediatric) * * New Orders:* Sleep Titration Study, Ordered: 09/09/21 * Comments:* 1. Given a diagnosis of CARLITOS, the patient warrants a CPAP titration study.2. We discussed insurance guidelines for CPAP compliance and the patient was advised to call with any difficulties tolerating CPAP. * Follow up:* 1. Follow up eight weeks after titration with a download to monitor compliance and tolerance of pressure therapy. Functional Status Description No Information Available Mental Status Mental Condition Comment Date Status Cognitive ability not impaired A ctive Referrals Refer to Reason for Referral Status Appt Date [facility] Sleep Lab [address] Closed 08/20/2021 Sleep Lab [address], [place] [id number] [phone] America Rose, BayleeN.P. +HST Closed 07/15/2021 [facility]-Pulmonary [address] [place], [place] [id number] [phone]
--- OUTSIDE RECORDS SUMMARY | 2021-10-14 19:09 | CCD | Continuity of Care Document ---
Author Author Sridhar SAAVEDRA I P.A. Organization Unknown Address [address] [place] [address] Phone [phone] Care Team Providers Care Food Adviser Name Role Phone Daryl Vallecillo AUTM [phone] [facility] AUTM [phone] Evelio Winchester M.D. AUTM James Gabriel AUTM [phone] AUTM Unavailable AUTM Unavailable Problems Active Problems [...] Smokeless Tobacco ETOH Use Currently consumes alcohol [employer] /DRINK OCCASIONALLY Tobacco Use Start: Unknown Non [...] lb BMI (Body Mass Index) 27.7 kg/m2 [place] Body Weight 166 lb Weight 87.545 kg BSA (Body Surface Area) 2.06 m2 09/09/2021 3:05pm Height 70 inches 5'10" Results Description No Information Available Procedures Date Code Description Status 08/05/2021 78900 Office/Outpatient New Low MDM 30 -44 Minutes Completed Medical Devices Description No Information Available Encounters Type Date Location Provider Dx Diagnosis Office Visit 08/05/2021 1:00p [facility] Pulmonary/Thoracic Dejuan Saavedra, P.A. G47.33 Obstructive sleep apnea (adult) (pediatr ic) Assessments Date Code Description Provider 09/09/2021 G47.33 Obstructive sleep apnea (adult) (pediatric) Dejuan Saavedra, P.A. 08/05/2021 G47.33 Obstructive sleep apnea (adult) (pediatric) Dejuan Saavedra, P.A. Plan of Treatment Future Appointment(s):* 12/09/2021 4:00 pm - Dejuan Saavedra, P.A. at [facility] Pulmonary/Thoracic * 10/14/2021 7:45 pm - [facility] - Dejuan Saavedra P.A.* G47.33 Obstructive sleep apnea (adult) (pediatric) * [...] to Reason for Referral Status Appt Date [facility] Sleep Lab [address] Scheduled 08/20/2021 Sleep Lab [address] [place], [place] [address] [phone] America Rose, BayleeNSukhdevP. +HST Closed 07/15/2021 [facility]-Pulmonary [address] [place], [place] [address] [phone]
--- OUTSIDE RECORDS SUMMARY | 2021-10-14 19:09 | CCD | Continuity of Care Document ---
Author Author Sridhar CARSON Organization [place] [address] Phone [phone] Care Team Providers Care Lead Principal Technical Architect Name Role Phone Lesly Salazar D.O. AUTM Daryl Lovell M.D. AUTM [phone] [facility] AUTM [phone] Alee Carlin ANP AUTM [phone] Problems Active Problems Provider Date Adult health examination Lesly Salazar D.O. Onset: 0 01/19/2016 Psychogenic impotence Lesly Salazar D.O. Onset: 07/2016 Gastroesophageal reflux disease Lesly Salazar D.O. O nset: 01/19/2016 Screening for malignant neoplasm of colon Lesly kellogg D.O. Onset: 01/19/2016 Vitamin D deficiency Lesly Salazar D.O. Onset: 09/17 Pure hypercholesterolemia Lesly Salazar D.O. Onset: 09/17/2017 Psychogenic impotence Lesly Salazar D.O. Onset: 04/[address] segment elevation myocardial in farction involving left anterior descending coronary artery Lesly Salazar D.O. Onset: 11/25/2019 Double coronary vessel disease Lesly Salazar D.O. On set: 11/25/2019 Gastro-esophageal reflux disease with esophagitis MANGO Tavares Onset: 02/24/2020 Sciatica MANGO Choi Onset: 02/24/2020 Mild recurrent major depression MANGO Choi Onset: 0 02/24/2020 Mild persistent asthma MANGO Choi Onset: 02/24/2020 Prediabetes MANGO Choi Onset: 08/31/2020 Essential hypertension MANGO Choi Onset: 03/02/2021 Social History Type Date Description Comments Sex Unknown ETOH Use Currently consumes alcohol k Recreational Drug Use Denies Drug Use Tobacco Use Start: Unknown Patient has never smoked Smoking Status Reviewed: 06/01/21 Patient has never smoked Exercise Type/Frequency Rowing 3 times per week Sun Exposure Does not use sunscreen Seat Belt/Car Seat Always uses seat belt Allergies and adverse reactions Description No Known Drug Allergies Medications Active Medications SIG Qnty Indications Ordering Provide r Date Wellbutrin XL 150mg Tablets ER 24H R take one tablet by mouth once a day 90tabs Lesly webb D.OSukhdev 09/01/2021 Citalopram Hydrobromide 10mg Table ts Take 1 Tablet By Mouth Every Day for one week and then 1 tablet every other day for week before discontinuing. 14tabs F33.0 Alee Samson.OSukhdev 09/01/2021 Trazodone HCL 50mg Tablets Take 1 To 2 Tablets By Mouth Every Night AT Bedtime 180tabs Alee Henriquez.OSukhdev 08/28/2021 Vitamin D3 2,000Unit 50 Capsules Take 1 Capsule By Mouth Every Day 90caps Alee Samson.O. 08/16/2021 Trueplus Lancets 33G 33G Misc use to check blood sugars daily 300units Glen SamsonOSukhdev True Metrix Blood Glucosetest Strips Strips used to check blood sugars daily 300units Glen HenriquezOSukhdev 07/01/2021 Atorvastatin Calcium 40mg Tablets Take 1 Tablet Every Night 90tabs Glen SamsonOSukhdev Prevagen 10mg Capsules Take one capsule by mouth once a day. 90caps Glen SamsonOSukhdev Prazosin HCL 2mg Capsules Take 1 Capsule By Mouth Every Night 1 Hour Before Bedtime as Needed To Help With Sleeping 90caps F33.0 Glen SamsonOSukhdev 06/01/2021 Debrox 6.5% Solution 4 drops in left ear as directed until waxed removed. 1units Lesly torres D.O. 06/01/2021 Shingrix 50mcg/0.5ML Suspension Re c administer shingrix vaccine at pharmacy 1units Z00.00 Glen SamsonOSukhdev 06/01/2021 Blood Pressure Monitor Digital/Auto-In flation [facility] one unit, check blood pressure regularly 1units I10 Lesly Jack D.O. 03/02/2021 Voltaren 1% Gel apply 1 gram to right knee every 6 hours as needed for pain 50gm M17.11 Glen ThorntonOSukhdev 01/18/2021 Cane/Aluminum/Adjustable/Mens Handle [facility] Duration: 99 Prognosis: good 1units M17.11 Glen ArangoOSukhdev 01/18/2021 M25.561 GNP Vitamin B-1 100mg Tablet Take 1 Tablet Every Day 90tabs Glen SamsonOSukhdev 11/03 Aspirin Low Dose 81mg Tablets DR Take 1 Tablet By Mouth Every Day 90tabs Glen SamsonOSukhdev 02/24/2020 Acetaminophen-Codeine #3 300-30mg Tablets 1 tab by mouth every 6 hours as needed for back pain istop [id number] 60tabs J04.0 Glen SamsonOSukhdev 01/28/2020 Albuterol Sulfate HFA 108(90Base) mcg/Act Aerosol Inhale 1 To 2 Puffs By Mouth Every 4 Hours as Needed 90units J45.30 Glen SamsonOSukhdev 11/20/2019 Pantoprazole Sodium 40mg Tablets D R take 1 tablet every day 90tabs K21.0 Lesly Salazar D.O. 08/12 Viagra 100mg Tablets take one tablet by mouth one hour prior to sexual activity 10tabs F52.21 Lesly Salazar D.O. 01/19/2016 Ezetimibe 10mg Tablets 1 tab by mouth daily 90tabs Lesly Salazar D.O. Vitamin B-1 100mg Tablets 1 tab by mouth daily 90tabs Lesly Salazar D.O. True Metrix Go Blood Glucose Meter w/Device Kit use as directed to check blood sugars daily 1units Lesly Salazar D.O. Accu-Chek Tonja Plus W/Device Kit used to check blood sugars daily 1units Lesly Salazar D .O. BD Swab Single Use Regular Pads use before checking blood sugar daily 100units Alee Mantilla.O. Accu-Chek Softclix Lancets Misc use to check blood sugars daily 100units Lesly Salazar D .O. Accu-Chek Tonja Plus Strips to be used with glucometer to test blood glucose once daily 100units Lesly Jack D.O. Metoprolol Tartrate 25mg Tablets Take 1/2 Tablet Twice Daily 90tabs Alee Samson.O. Folic Acid 1mg Tablets take 1 tablet by mouth every day 90tabs Lesly Salazar D.O. History Medications Citalopram Hydrobromide 20mg Table ts Take 1 Tablet By Mouth Every Day 90tabs F33.0 Lesly Salazar D.O. 09/01/2021 - 09/01/2021 Citalopram Hydrobromide 10mg Table ts take 1 tablet every day 90tabs F33.0 Lesly Salazar D.O. - 09/01/2021 Citalopram Hydrobromide 20mg Table ts Take 1 Tablet Every Day 90tabs F33.0 Glen SamsonOSukhdev - 06/23/2021 Clopidogrel Bisulfate 75mg Tablets Take 1 Tablet Every Day 90tabs Lesly Salazar D.O. 06/0 02/2021 - 04/18/2021 Apap Device With Other Neccessary Supplies. Duration: 99 Prognos is: fair 1units G47.33 Lesly Salazar D.O. 04/13/2021 - 09/01/2021 Vitamin D3 2,000Unit 50 Capsules Take 1 Capsule By Mouth Every Day 90caps Lesly Salazar D.O. 04/13/2021 - 08/16/2021 Medications Administered in Office Medication SIG Qnty Indications Ordering Provider Date Immunization Administration Single Or Co mbination Injection MANGO Steiner Immunizations CPT Code Status Date Vaccine Lot # [id number] Given 06/01/2021 Pneumococcal Con jugate Vaccine 13 Valent For Intramuscular Use [id number] Given 06/01/2021 Pneumococcal Con jugate Vaccine 13 Valent For Intramuscular Use [id number] Given 08/31/2020 Influenza Virus Vaccine, Quadrivalent, Split, Preservative Free [id number] Given 06/11/2017 Pneumococcal Con jugate Vaccine 13 Valent For Intramuscular Use [id number] Vital Signs Date Vital Result Comment 09/01/2021 1:12pm BP Systolic 138 mmHg BP Diastolic 78 mmHg Height 69 inches 5'9" Weight 195.00 lb BMI (Body Mass Index) 28.8 kg/m2 Heart Rate 82 /min Respiratory Rate 20 /min Body Temperature 98.2 F O2 % BldC Oximetry 97 % [place] Body Weight 160 lb 06/01/2021 4:06pm BP Systolic 122 mmHg BP Diastolic 74 mmHg Height 69 inches 5'9" Weight 189.00 lb BMI (Body Mass Index) 27.9 kg/m2 Heart Rate 87 /min Respiratory Rate 18 /min Body Temperature 97.0 F O2 % BldC Oximetry 97.0 % [place] Body Weight 160 lb Results Test Acquired Date Facility Test Result H/L Range Note Comprehensive Metabolic Profil 05/20/2021 [facility] Outpa tient Testing (Registration) [address] [place] [address] [phone] Glucose, Fasting 73 mg/dL Normal 70-100 Blood Urea Nitrogen 11 mg/dL Normal 7-18 Creatinine For GFR 0.78 mg/dL Normal 0.70-1.30 Glomerular Filtration Rate > 60.0 Normal >42 1 Sodium Level 141 mEq/L Normal 136-145 Potassium Serum 4.3 mEq/L Normal 3.5-5.1 Chloride Level 109 mEq/L High 98-107 Carbon Dioxide Level 25 mEq/L Normal 21-32 Anion Gap 7 mEq/L Low 8-16 Calcium Level 10.3 mg/dL High 8.8-10.2 Ast/Sgot 15 U/L Normal 7-37 Alt/SGPT 32 U/L Normal 12-78 Alkaline Phosphatase 69 U/L Normal 45-117 Bilirubin,Total 0.9 mg/dL Normal 0.2-1.0 Total Protein 6.8 GM/DL Normal 6.4-8.2 Albumin 3.7 GM/DL Normal 3.2-5.2 Albumin/Globulin Ratio 1.2 Normal CBC With Differential 05/20/2021 [facility] Outpatient [place] (Registration) [address] [place] [address] [phone] White Blood Count 5.5 10 Normal 4.0-10.0 Red Blood Count 4.07 10 Low 4.30-6.10 Hemoglobin 12.8 g/dL Low 13.5-17.5 Hematocrit 38.8 % Low 42.0-52.0 Mean Corpuscular Volume 95.3 fl Normal 80.0-96.0 Mean Corpuscular Hemoglobin 31.4 pg Normal 27.0-33.0 Mean Corpuscular HGB Conc 33.0 g/dL Normal 32.0-36.5 Red Cell Distribution Width 12.5 % Normal 11.5-14.5 Platelet Count, Automated 218 10 Normal 150-450 Neutrophils % 56.8 % Normal 36.0-66.0 Lymph % 21.8 % Low 24.0-44.0 Gila % 9.4 % High 2.0-8.0 Eos % 11.2 % High 0.0-3.0 Baso % 0.4 % Normal 0.0-1.0 Immature Granulocyte % 0.4 % Normal 0-3.0 Nucleated Red Blood Cell % 0.0 % Normal 0-0 Neutrophils # 3.2 10 Normal 1.5-8.5 Lymph # 1.2 10 Low 1.5-5.0 Gila # 0.5 10 Normal 0.0-0.8 Eos # 0.6 10 High 0.0-0.5 Baso # 0.0 10 Normal 0.0-0.2 Hemoglobin A1c 05/20/2021 [facility] Outpatient Testi ng (Registration) [address] [place] [address] [id number] [phone] Hemoglobin A1c 5.7 % Normal 2 Estimated Average Glucose 117 mg/dL High 60-110 Prothrombin Time/Inr 05/20/2021 [facility] Outpatient Test ing (Registration) [address] [place] [address] [phone] Prothrombin Time 11.9 seconds Normal 12.5-14.3 Inr 0.86 Normal 3 Laboratory test finding 05/20/2021 [facility] Outpatient T esting (Registration) [address] [place] [address] [phone] Partial Thromboplastin Time 28.7 seconds Normal 24 .2-38.5 1 Units are mL/min/1.73 m2 Chronic Kidney Disease Staging per NKF: Stage I & II GFR >=60 Normal to Mildly Decreased Stage III GFR 30-59 Moderately Decreased Stage IV GFR 15-29 Severely Decreased Stage V GFR <15 Very Little GFR Left ESRD GFR <15 on PLANTING [employer]WMAN 2 REFERENCE RANGES: <=5.6% NORMAL 5.7-6.4% SUGGESTS IMPAIRED GLUCOSE META BOLISM/PREDIABETIC >= 6.5% ABNORMAL 3 THERAPUTIC HUMAN INR VALUES INDICATIONS NORMAL RANGES PROPHYLAXIS/TREATMENT OF: VENOUS THROMBOSIS 2.0-3.0 PULMONARY EMBOLISM 2.0-3.0 PREVENTION OF SYSTEMIC EMBOLISM FROM: TISSUE HEART VALVES 2.0-3.0 ACUTE MYOCARDIAL INFARCTION 2.0-3.0 VALVULAR HEART DISEASE 2.0-3.0 ATRIAL FIBRILLATION 2.0-3.0 MECHANICAL VALVES(HIGH RISK) 2.5-3.5 RECURRENT MYOCARDIAL INFARCTION 2.5-3.5 Procedures Date Code Description Status 09/01/2021 28735 Office/Outpatient Established Mo d MDM 30-39 Min Completed 05/20/2021 41353 Office/Outpatient Established Mo d MDM 30-39 Min Completed 04/13/2021 35544 Office/Outpatient Established Lo w MDM 20-29 Min Completed Medical Devices Description No Information Available Encounters Type Date Location Provider Dx Diagnosis Office Visit 09/01/2021 1:10p [facility] MANGO [place] F33.0 Major depressive disorder, r ecurrent, mild I25.10 Athscl heart disease of [place] coronary artery w/o ang pctrs E78.00 Pure hypercholesterolemia, u nspecified K21.00 Gastro-esophageal reflux dis with esophagitis, without bleed M54.42 Lumbago with sciatica, left side J45.30 Mild persistent asthma, unco mplicated G47.33 Obstructive sleep apnea (ho lt) (pediatric) Office Visit 06/01/2021 4:00p [facility] MANGO [place] Z00.00 Encntr for general adult med ical exam w/o abnormal findings I25.10 Athscl heart disease of [place] coronary artery w/o ang pctrs E78.00 Pure hypercholesterolemia, u nspecified F33.0 Major depressive disorder, r ecurrent, mild K21.00 Gastro-esophageal reflux dis with esophagitis, without bleed M54.42 Lumbago with sciatica, left side J45.30 Mild persistent asthma, unco mplicated M17.11 Unilateral primary osteoarth ritis, right knee G47.33 Obstructive sleep apnea (ho lt) (pediatric) Z79.899 Other fci (current) dr eagle lima R73.01 Impaired fasting glucose Z00.00 Encntr for general adult med ical exam w/o abnormal findings Office Visit 05/20/2021 1:40p [facility] MANGO Steiner Z01.818 Encounter for other preproce dural examination M25.561 Pain in right knee Office Visit 04/13/2021 3:30p [facility] MANGO Choi M17.11 Unilateral primary osteoarth ritis, right knee G47.33 Obstructive sleep apnea (ho lt) (pediatric) Assessments Date Code Description Provider 09/01/2021 F33.0 Major depressive disorder, recur rent, mild MANGO Choi 09/01/2021 I25.10 Atherosclerotic hear t disease of [place] coronary artery without angina pectoris MANGO Choi 09/01/2021 E78.00 Pure hypercholesterolemia, unspe cified MANGO Choi 09/01/2021 K21.00 Gastro-esophageal re flux disease with esophagitis, without bleeding MANGO Choi 09/01/2021 M54.42 Lumbago with sciatica, left side MANGO Choi 09/01/2021 J45.30 Mild persistent asthma, uncompli cated MANGO Choi 09/01/2021 G47.33 Obstructive sleep apnea (adult) (pediatric) MANGO Choi 06/01/2021 Z00.00 Encounter for genera l adult medical examination without abnormal findings MANGO Choi 06/01/2021 I25.10 Atherosclerotic hear t disease of [place] coronary artery without angina pectoris MANGO Choi 06/01/2021 E78.00 Pure hypercholesterolemia, unspe cified MANGO Choi 06/01/2021 F33.0 Major depressive disorder, recur rent, mild MANGO Choi 06/01/2021 K21.00 Gastro-esophageal re flux disease with esophagitis, without bleeding MANGO hCoi 06/01/2021 M54.42 Lumbago with sciatica, left side MANGO Choi 06/01/2021 J45.30 Mild persistent asthma, uncompli cated MANGO Choi 06/01/2021 M17.11 Unilateral primary osteoarthriti s, right knee MANGO Choi 06/01/2021 G47.33 Obstructive sleep apnea (adult) (pediatric) MANGO Choi 06/01/2021 Z79.899 Other fci (current) drug t herapy MANGO Choi 06/01/2021 R73.01 Impaired fasting glucose MANGO Choi 06/01/2021 Z00.00 Encounter for genera l adult medical examination without abnormal findings MANGO Choi 05/20/2021 Z01.818 Encounter for other preprocedura l examination MANGO Steiner 05/20/2021 M25.561 Pain in right knee MANGO Black 04/13/2021 M17.11 Unilateral primary osteoarthriti s, right knee MANGO Choi 04/13/2021 G47.33 Obstructive sleep apnea (adult) (pediatric) MAGNO Choi Plan of Treatment Future Appointment(s):* 12/05/2021 1:00 pm - MANGO Choi at [facility] Functional Status Description No Information Available Mental Status Description No Information Available Referrals Refer to Dr Reason for Referral Status Appt Date Alee Carlin,ANP Sridhar had a home sleep stud y and needs a hospital based sleep study to have CPAP approved. Please evaluate and treat. Closed 07/15/2021 [facility] [address] [place] [address] [phone]
--- OUTSIDE RECORDS SUMMARY | 2021-10-14 19:09 | CCD | Continuity of Care Document ---
Author Author Sridhar SAAVEDRA I P.A. Organization Unknown Address [address] [place] [address] Phone [phone] Care Team Providers Care Truck Assembler Name Role Phone Daryl Vallecillo AUTM [phone] [facility] AUTM [phone] Evelio Winchester M.D. AUTM James Gabriel AUTM [phone] AUTM Unavailable AUTM Unavailable Problems Active Problems [...] Smokeless Tobacco ETOH Use Currently consumes alcohol REPUBLICAN /DRINK OCCASIONALLY Tobacco Use Start: Unknown Non [...] lb BMI (Body Mass Index) 27.7 kg/m2 [place] Body Weight 166 lb Weight 87.545 kg BSA (Body Surface Area) 2.06 m2 09/09/2021 3:05pm Height 70 inches 5'10" Results Description No Information Available Procedures Date Code Description Status 08/05/2021 96326 Office/Outpatient New Low MDM 30 -44 Minutes Completed Medical Devices Description No Information Available Encounters Type Date Location Provider Dx Diagnosis Office Visit 08/05/2021 1:00p [facility] Pulmonary/Thoracic Dejuan Saavedra, P.A. G47.33 Obstructive sleep apnea (adult) (pediatr ic) Assessments Date Code Description Provider 09/09/2021 G47.33 Obstructive sleep apnea (adult) (pediatric) Dejuan Saavedra, P.A. 08/05/2021 G47.33 Obstructive sleep apnea (adult) (pediatric) Dejuan Saavedra, P.A. Plan of Treatment Future Appointment(s):* 12/09/2021 4:00 pm - Dejuan Saavedra, P.A. at [facility] Pulmonary/Thoracic * 10/14/2021 7:45 pm - [facility]/09/2021 - Dejuan Saavedra P.A.* G47.33 Obstructive [...] to Reason for Referral Status Appt Date [facility] Sleep Lab [address] Scheduled 08/20/2021 Sleep Lab [address] [place], [place] [address] [phone] America Rose, BayleeNSukhdevP. +HST Closed 07/15/2021 [facility] [address] [place], [place] [address] [phone]
--- OUTSIDE RECORDS SUMMARY | 2021-10-14 19:09 | CCD | Continuity of Care Document ---
Author Author Sridhar SAAVEDRA I P.A. Organization Unknown Address [address] [place] [address] Phone [phone] Care Team Providers Care Information Technology Director Name Role Phone Daryl Vallecillo AUTM [phone] [facility] Re[facility] AUTM [phone] Evelio Winchester M.D. AUTM James Gabriel AUTM [phone] AUTM Unavailable AUTM Unavailable Problems Active Problems [...] lb BMI (Body Mass Index) 27.7 kg/m2 [place] Body Weight 166 lb Weight 87.545 kg BSA (Body Surface Area) 2.06 m2 09/09/2021 3:05pm Height 70 inches 5'10" Results Description No Information Available Procedures Date Code Description Status 08/05/2021 06361 Office/Outpatient New Low MDM 30 -44 Minutes Completed Medical Devices Description No Information Available Encounters Type Date Location Provider Dx Diagnosis Office Visit 08/05/2021 1:00p [facility] Pulmonary/Thoracic Dejuan Saavedra, P.A. G47.33 Obstructive sleep apnea (adult) (pediatr ic) Assessments Date Code Description Provider 09/09/2021 G47.33 Obstructive sleep apnea (adult) (pediatric) Dejuan Saavedra, P.A. 08/05/2021 G47.33 Obstructive sleep apnea (adult) (pediatric) Dejuan Saavedra, P.A. Plan of Treatment Future Appointment(s):* 12/09/2021 4:00 pm - Dejuan Saavedra, P.A. at [facility] Pulmonary/Thoracic * 10/14/2021 7:45 pm - [facility] - Dejuan Saavedra P.A.* G47.33 Obstructive [...] to Reason for Referral Status Appt Date [facility] Sleep Lab [address] Scheduled 08/20/2021 Sleep Lab [address] [place], [place] [address] [phone] America Rose, BayleeNSukhdevP. +HST Closed 07/15/2021 [facility] [address] [place], [place] [address] [phone]
--- OUTSIDE RECORDS SUMMARY | 2021-10-14 19:09 | CCD | Continuity of Care Document ---
Author Author Sridhar CARSON Organization [place] [address] Phone [phone] Care Team Providers Care Getter Operator Name Role Phone Lesly Salazar D.O. AUTM Daryl Lovell M.D. AUTM [phone] [facility] AUTM [phone] Alee Carlin ANP AUTM [phone] Problems Active Problems Provider Date Adult health [...] by mouth once a day. 90caps Glen aSmsonOSukhdev Prazosin HCL 2mg Capsules Take 1 Capsule [...] SamsonOSukhdev 06/01/2021 Blood Pressure Monitor Digital/Auto-In flation [facility] one unit, check blood pressure regularly 1units I10 Lesly Jack D.O. 03/02/2021 Voltaren 1% Gel apply 1 gram to right knee every 6 hours as needed for pain 50gm M17.11 Glen ThorntonOSukhdev 01/18/2021 Cane/Aluminum/Adjustable/Mens Handle [facility] Duration: 99 Prognosis: good 1units M17.11 Glen ArangoOSukhdev 01/18/2021 M25.561 GNP Vitamin B-1 100mg Tablet Take 1 Tablet Every Day 90tabs Glen SamsonOSukhdev 11/03 Aspirin Low Dose 81mg Tablets DR Take 1 Tablet By Mouth Every Day 90tabs Glen SamsonOSukhdev 02/24/2020 Acetaminophen-Codeine #3 300-30mg Tablets 1 tab by mouth every 6 hours as needed for back pain istop [id number] 60tabs J04.0 Glen SamsonOSukhdev 01/28/2020 Albuterol Sulfate [...] CPT Code Status Date Vaccine Lot # [id number] Given 06/01/2021 Pneumococcal Con jugate Vaccine 13 Valent For Intramuscular Use [id number] Given 06/01/2021 Pneumococcal Con jugate Vaccine 13 Valent For Intramuscular Use [id number] Given 08/31/2020 Influenza Virus Vaccine, Quadrivalent, Split, Preservative Free [id number] Given 06/11/2017 Pneumococcal Con jugate Vaccine 13 Valent For Intramuscular Use [id number] Vital Signs Date Vital Result Comment 09/01/2021 1:12pm BP Systolic 138 mmHg BP Diastolic 78 mmHg Height 69 inches 5'9" Weight 195.00 lb BMI (Body Mass Index) 28.8 kg/m2 Heart Rate 82 /min Respiratory Rate 20 /min Body Temperature 98.2 F O2 % BldC Oximetry 97 % [place] Body Weight 160 lb 06/01/2021 4:06pm BP Systolic 122 mmHg BP Diastolic 74 mmHg Height 69 inches 5'9" Weight 189.00 lb BMI (Body Mass Index) 27.9 kg/m2 Heart Rate 87 /min Respiratory Rate 18 /min Body Temperature 97.0 F O2 % BldC Oximetry 97.0 % [place] Body Weight 160 lb Results Test Acquired Date Facility Test Result H/L Range Note Comprehensive Metabolic Profil 05/20/2021 [facility] Outpa tient Testing (Registration) [address] [place] [address] [phone] Glucose, Fasting 73 mg/dL Normal 70-100 Blood [...] Ratio 1.2 Normal CBC With Differential 05/20/2021 [facility] Outpatient Maty shields (Registration) [address] [place] [address] [phone] White Blood Count 5.5 10 Normal 4.0-10.0 [...] 36.0-66.0 Lymph % 21.8 % Low 24.0-44.0 [place] % 9.4 % High 2.0-8.0 Eos % 11.2 % High 0.0-3.0 Baso % 0.4 % Normal 0.0-1.0 Immature Granulocyte % 0.4 % Normal 0-3.0 Nucleated Red Blood Cell % 0.0 % Normal 0-0 Neutrophils # 3.2 10 Normal 1.5-8.5 Lymph # 1.2 10 Low 1.5-5.0 [place] # 0.5 10 Normal 0.0-0.8 Eos # 0.6 10 High 0.0-0.5 Baso # 0.0 10 Normal 0.0-0.2 Hemoglobin A1c 05/20/2021 [facility] Outpatient Testi ng (Registration) [address] [place] [address] [id number] [phone] Hemoglobin A1c 5.7 % Normal 2 Estimated Average Glucose 117 mg/dL High 60-110 Prothrombin Time/Inr 05/20/2021 [facility] Outpatient Test ing (Registration) [address] [place] [address] [phone] Prothrombin Time 11.9 seconds Normal 12.5-14.3 Inr 0.86 Normal 3 Laboratory test finding 05/20/2021 [facility] Outpatient T esting (Registration) [address] [place] [address] [phone] Partial Thromboplastin Time 28.7 seconds Normal 24 .2-38.5 1 Units are mL/min/1.73 m2 Chronic Kidney Disease Staging per NKF: Stage I & II GFR >=60 Normal to Mildly Decreased Stage III GFR 30-59 Moderately Decreased Stage IV GFR 15-29 Severely Decreased Stage V GFR <15 Very Little GFR Left ESRD GFR <15 on WELL SURVEYING ENGINEER 2 REFERENCE RANGES: <=5.6% NORMAL 5.7-6.4% SUGGESTS [...] 2.5-3.5 Procedures Date Code Description Status 09/01/2021 63612 Office/Outpatient Established Mo d MDM 30-39 Min Completed 05/20/2021 98325 Office/Outpatient Established Mo d MDM 30-39 Min Completed 04/13/2021 20627 Office/Outpatient Established Lo w MDM 20-29 Min Completed Medical Devices Description No Information Available Encounters Type Date Location Provider Dx Diagnosis Office Visit 09/01/2021 1:10p [facility] MANGO [place] F33.0 Major depressive disorder, r ecurrent, mild I25.10 Athscl heart disease of [place] coronary artery w/o ang pctrs E78.00 Pure hypercholesterolemia, u nspecified K21.00 Gastro-esophageal reflux dis with esophagitis, without bleed M54.42 Lumbago with sciatica, left side J45.30 Mild persistent asthma, unco mplicated G47.33 Obstructive sleep apnea (ho lt) (pediatric) Office Visit 06/01/2021 4:00p [facility] MANGO [place] Z00.00 Encntr for general adult [...] sleep apnea (ho lt) (pediatric) Z79.899 [facility] (current[facility] dr eagle lima R73.01 Impaired fasting glucose Z00.00 Encntr for general adult med ical exam w/o abnormal findings Office Visit 05/20/2021 1:40p [facility] MANGO Steiner Z01.818 Encounter for other preproce dural examination M25.561 Pain in right knee Office Visit 04/13/2021 3:30p [facility] MANGO Choi M17.11 Unilateral primary osteoarth ritis, right knee G47.33 Obstructive sleep apnea (ho lt) (pediatric) Assessments Date Code Description Provider 09/01/2021 F33.0 Major depressive disorder, recur rent, mild MANGO Choi 09/01/2021 I25.10 Atherosclerotic hear t disease of [place] coronary artery without angina pectoris MANGO Choi [...] 06/01/2021 I25.10 Atherosclerotic hear t disease of [place] coronary artery without angina pectoris MANGO Choi 06/01/2021 E78.00 Pure hypercholesterolemia, unspe cified MANGO Choi 06/01/2021 F33.0 Major depressive disorder, recur rent, mild MANGO Choi 06/01/2021 K21.00 Gastro-esophageal re flux disease with esophagitis, without bleeding MANGO Choi 06/01/2021 M54.42 Lumbago with sciatica, left side MANGO Choi 06/01/2021 J45.30 Mild persistent asthma, uncompli cated MANGO Choi 06/01/2021 M17.11 Unilateral primary osteoarthriti s, right knee MANGO Choi 06/01/2021 G47.33 Obstructive sleep apnea (adult) (pediatric) MANGO Choi 06/01/2021 Z79.899 Other prison (current[facility] drug t herapy MANGO Choi 06/01/2021 R73.01 Impaired fasting glucose MANGO Choi 06/01/2021 Z00.00 Encounter for genera l adult medical examination without abnormal findings MANGO Choi 05/20/2021 Z01.818 Encounter for other preprocedura l examination MANGO Steiner 05/20/2021 M25.561 Pain in right knee MANGO Black 04/13/2021 M17.11 Unilateral primary osteoarthriti s, right knee MANGO Choi 04/13/2021 G47.33 Obstructive sleep apnea (adult) (pediatric) MANGO Choi Plan of Treatment Future Appointment(s):* 12/05/2021 1:00 pm - MANGO Choi at [facility] Functional Status Description No Information Available Mental Status Description No Information Available Referrals Refer to Dr Reason for Referral Status Appt Date Alee Carlin,ANP Sridhar had a home sleep stud y and needs a hospital based sleep study to have CPAP approved. Please evaluate and treat. Closed 07/15/2021 [facility] [address] [place] [address] [phone]
--- OUTSIDE RECORDS SUMMARY | 2021-10-14 19:09 | CCD | Continuity of Care Document ---
Author Author Sridhar SAAVEDRA I P.A. Organization Unknown Address [address] [place] [address] Phone [phone] Care Team Providers Care Event Planning Manager Name Role Phone Daryl Vallecillo AUTM [phone] [facility] Rehab AUTM [phone] Evelio Winchester M.D. AUTM [phone] James Gabriel AUTM [phone] AUTM Unavailable AUTM Unavailable Problems Active Problems [...] lb BMI (Body Mass Index) 27.7 kg/m2 [place] Body Weight 166 lb Weight 87.545 kg BSA (Body Surface Area) 2.06 m2 09/09/2021 3:05pm Height 70 inches 5'10" Results Description No Information Available Procedures Date Code Description Status 08/05/2021 67266 Office/Outpatient New Low MDM 30 -44 Minutes Completed Medical Devices Description No Information Available Encounters Type Date Location Provider Dx Diagnosis Office Visit 08/05/2021 1:00p [facility] Pulmonary/Thoracic Dejuan Saavedra, P.A. G47.33 Obstructive sleep apnea (adult) (pediatr ic) Assessments Date Code Description Provider 09/09/2021 G47.33 Obstructive sleep apnea (adult) (pediatric) Dejuan Saavedra, P.A. 08/05/2021 G47.33 Obstructive sleep apnea (adult) (pediatric) Dejuan Saavedra, P.A. Plan of Treatment Future Appointment(s):* 12/09/2021 4:00 pm - Dejuan Saavedra, P.A. at [facility] Pulmonary/Thoracic * 10/14/2021 7:45 pm - [facility] Sleep Lab at [facility]/09/2021 - Dejuan Saavedra P.A.* G47.33 Obstructive [...] to Reason for Referral Status Appt Date [facility] Sleep Lab [address] Scheduled 08/20/2021 Sleep Lab [address] [place], [place] [address] [phone] America Rose, BayleeNSukhdevP. +HST Closed 07/15/2021 [facility]-Pulmonary [address] [place], [place] [address] [phone]
--- OUTSIDE RECORDS SUMMARY | 2021-10-14 19:09 | CCD | Continuity of Care Document ---
Author Author Sridhar SAAVEDRA I P.A. Organization Unknown Address [address] [place] [address] Phone [phone] Care Team Providers Care Distance Learning Technician Name Role Phone Daryl Vallecillo AUTM [phone] [facility] Rehab AUTM [phone] Evelio Winchester M.D. AUTM James Gabriel AUTM [phone] AUTM Unavailable AUTM Unavailable Problems Active Problems [...] Smokeless Tobacco ETOH Use Currently consumes alcohol LIBERTARIAN /DRINK OCCASIONALLY Tobacco Use Start: Unknown Non [...] lb BMI (Body Mass Index) 27.7 kg/m2 [place] Body Weight 166 lb Weight 87.545 kg BSA (Body Surface Area) 2.06 m2 09/09/2021 3:05pm Height 70 inches 5'10" Results Description No Information Available Procedures Date Code Description Status 08/05/2021 35209 Office/Outpatient New Low MDM 30 -44 Minutes Completed Medical Devices Description No Information Available Encounters Type Date Location Provider Dx Diagnosis Office Visit 08/05/2021 1:00p [facility] Pulmonary/Thoracic Dejuan Saavedra, P.A. G47.33 Obstructive sleep apnea (adult) (pediatr ic) Assessments Date Code Description Provider 09/09/2021 G47.33 Obstructive sleep apnea (adult) (pediatric) Dejuan Saavedra, P.A. 08/05/2021 G47.33 Obstructive sleep apnea (adult) (pediatric) Dejuan Saavedra, P.A. Plan of Treatment Future Appointment(s):* 12/09/2021 4:00 pm - Dejuan Saavedra, P.A. at [facility] Pulmonary/Thoracic * 10/14/2021 7:45 pm - [facility] 09/09/2021 - Dejuan Saavedra P.A.* G47.33 Obstructive [...] Reason for Referral Status Appt Date [facility] Sleep Lab [address] Scheduled 08/20/2021 Sleep Lab [address] [place], [place] [address] [phone] America Rose, BayleeNSukhdevP. +HST Closed 07/15/2021 [facility]-Pulmonary [address] [place], [place] [address] [phone]
--- OUTSIDE RECORDS SUMMARY | 2021-10-14 19:09 | CCD | Continuity of Care Document ---
Author Author Sridhar CARSON Organization Unknown Address [place] [address] Phone [phone] Care Team Providers Care Manager Trade Marketing Name Role Phone Lesly Salazar D.O. AUTM [phone] Daryl Lovell M.D. AUTM [phone] [facility] AUTM [phone] lAee Carlin ANP AUTM [phone] Problems Active Problems Provider Date Adult health [...] SamsonOSukhdev 06/01/2021 Blood Pressure Monitor Digital/Auto-In flation [facility] one unit, check blood pressure regularly 1units I10 Lesly Jack D.O. 03/02/2021 Voltaren 1% Gel apply 1 gram to right knee every 6 hours as needed for pain 50gm M17.11 Glen ThorntonOSukhdev 01/18/2021 Cane/Aluminum/Adjustable/Mens Handle [facility] Duration: 99 Prognosis: good 1units M17.11 Glen ArangoOSukhdev 01/18/2021 M25.561 GNP Vitamin B-1 100mg Tablet Take 1 Tablet Every Day 90tabs Glen SamsonOSukhdev 11/03 Aspirin Low Dose 81mg Tablets DR Take 1 Tablet By Mouth Every Day 90tabs Glen SamsonOSukhdev 02/24/2020 Acetaminophen-Codeine #3 300-30mg Tablets 1 tab by mouth every 6 hours as needed for back pain istop [id number] 60tabs J04.0 Glen SamsonOSukhdev 01/28/2020 Albuterol Sulfate [...] CPT Code Status Date Vaccine Lot # [id number] Given 06/01/2021 Pneumococcal Con jugate Vaccine 13 Valent For Intramuscular Use 39873 Given 06/01/2021 Pneumococcal Con jugate Vaccine 13 Valent For Intramuscular Use [id number] 92037 Given 08/31/2020 Influenza Virus Vaccine, Quadrivalent, Split, Preservative Free [id number] 04884 Given 06/11/2017 Pneumococcal Con jugate Vaccine 13 Valent For Intramuscular Use [id number] Vital Signs Date Vital Result Comment 09/01/2021 1:12pm BP Systolic 138 mmHg BP Diastolic 78 mmHg Height 69 inches 5'9" Weight 195.00 lb BMI (Body Mass Index) 28.8 kg/m2 Heart Rate 82 /min Respiratory Rate 20 /min Body Temperature 98.2 F O2 % BldC Oximetry 97 % [place] Body Weight 160 lb 06/01/2021 4:06pm BP Systolic 122 mmHg BP Diastolic 74 mmHg Height 69 inches 5'9" Weight 189.00 lb BMI (Body Mass Index) 27.9 kg/m2 Heart Rate 87 /min Respiratory Rate 18 /min Body Temperature 97.0 F O2 % BldC Oximetry 97.0 % [place] Body Weight 160 lb Results Test Acquired Date Facility Test Result H/L Range Note Comprehensive Metabolic Profil 05/20/2021 [facility] Outpa tient Testing (Registration) [address] [place] [address] [phone] Glucose, Fasting 73 mg/dL Normal 70-100 Blood [...] Ratio 1.2 Normal CBC With Differential 05/20/2021 [facility] Outpatient Maty shields (Registration) [address] [place] [address] [phone] White Blood Count 5.5 10 Normal 4.0-10.0 [...] 36.0-66.0 Lymph % 21.8 % Low 24.0-44.0 [place] % 9.4 % High 2.0-8.0 Eos % 11.2 % High 0.0-3.0 Baso % 0.4 % Normal 0.0-1.0 Immature Granulocyte % 0.4 % Normal 0-3.0 Nucleated Red Blood Cell % 0.0 % Normal 0-0 Neutrophils # 3.2 10 Normal 1.5-8.5 Lymph # 1.2 10 Low 1.5-5.0 [place] # 0.5 10 Normal 0.0-0.8 Eos # 0.6 10 High 0.0-0.5 Baso # 0.0 10 Normal 0.0-0.2 Hemoglobin A1c 05/20/2021 [facility] Outpatient Testi ng (Registration) [address] [place] [address] [phone] Hemoglobin A1c 5.7 % Normal 2 Estimated Average Glucose 117 mg/dL High 60-110 Prothrombin Time/Inr 05/20/2021 [facility] Outpatient Test ing (Registration) [address] [place] [address] [phone] Prothrombin Time 11.9 seconds Normal 12.5-14.3 Inr 0.86 Normal 3 Laboratory test finding 05/20/2021 [facility] Outpatient T esting (Registration) [address] [place] [address] [phone] Partial Thromboplastin Time 28.7 seconds Normal 24 .2-38.5 1 Units are mL/min/1.73 m2 Chronic Kidney Disease Staging per NKF: Stage I & II GFR >=60 Normal to Mildly Decreased Stage III GFR 30-59 Moderately Decreased Stage IV GFR 15-29 Severely Decreased Stage V GFR <15 Very Little GFR Left ESRD GFR <15 on GROUND HOST/HOSTESS 2 REFERENCE RANGES: <=5.6% NORMAL 5.7-6.4% SUGGESTS [...] 2.5-3.5 Procedures Date Code Description Status 09/01/2021 21498 Office/Outpatient Established Mo d MDM 30-39 Min Completed 05/20/2021 37768 Office/Outpatient Established Mo d MDM 30-39 Min Completed 04/13/2021 61716 Office/Outpatient Established Lo w MDM 20-29 Min Completed Medical Devices Description No Information Available Encounters Type Date Location Provider Dx Diagnosis Office Visit 09/01/2021 1:10p [facility] MANGO [place] F33.0 Major depressive disorder, r ecurrent, mild I25.10 Athscl heart disease of [place] coronary artery w/o ang pctrs E78.00 Pure hypercholesterolemia, u nspecified K21.00 Gastro-esophageal reflux dis with esophagitis, without bleed M54.42 Lumbago with sciatica, left side J45.30 Mild persistent asthma, unco mplicated G47.33 Obstructive sleep apnea (ho lt) (pediatric) Office Visit 06/01/2021 4:00p [facility] MANGO [place] Z00.00 Encntr for general [...] sleep apnea (ho lt) (pediatric) Z79.899 Other f[facility] (current) dr eagle lima R73.01 Impaired fasting glucose Z00.00 Encntr for general adult med ical exam w/o abnormal findings Office Visit 05/20/2021 1:40p [facility] MANGO Steiner Z01.818 Encounter for other preproce dural examination M25.561 Pain in right knee Office Visit 04/13/2021 3:30p [facility] MANGO Choi M17.11 Unilateral primary osteoarth ritis, right knee G47.33 Obstructive sleep apnea (ho lt) (pediatric) Assessments Date Code Description Provider 09/01/2021 F33.0 Major depressive disorder, recur rent, mild MANGO Choi 09/01/2021 I25.10 Atherosclerotic hear t disease of [place] coronary artery without angina pectoris MANGO Choi [...] 06/01/2021 I25.10 Atherosclerotic hear t disease of [place] coronary artery without angina pectoris MANGO Choi [...] (adult) (pediatric) MANGO Choi 06/01/2021 Z79.899 Other [facility] (current) drug t herapy MANGO Choi 06/01/2021 [...] 12/05/2021 1:00 pm - MANGO Choi at [facility] Functional Status Description No Information Available Mental Status Description No Information Available Referrals Refer to Dr Reason for Referral Status Appt Date Alee Carlin,ANP Sridhar had a home sleep stud y and needs a hospital based sleep study to have CPAP approved. Please evaluate and treat. Closed 07/15/2021 [facility] [address] [place] [address] [phone]
--- OUTSIDE RECORDS SUMMARY | 2021-10-14 19:10 | CCD | Continuity of Care Document ---
Author Author Sridhar SAAVEDRA I PA Organization Unknown Address [address] [place] [address] Phone [phone] Care Team Providers Care Manufacturing Test Technician Name Role Phone Daryl Vallecillo AUTM [phone] [facility] Rehab AUTM [phone] Evelio Winchester M.D. AUTM James Gabriel AUTM [phone] AUTM Unavailable AUTM Unavailable Problems Active Problems [...] MD Onset: 12/12/2017 Obstructive sleep apnea syndrome AMNGO Mitchell Onset: 08/05/2021 Social History Type Date Description Comments Sex Unknown Tobacco Use Start: Unknown Never Smoked Cigarettes Tobacco Use Start: Unknown Never Smoked Cigars Tobacco Use Start: Unknown Never Smoked A Pipe Smoking Status Reviewed: 08/05/21 Never Smoked A Pipe Smokeless Tobacco Never Used Smokeless Tobacco ETOH Use Currently consumes alcohol DEMOCRAT /DRINK OCCASIONALLY Tobacco Use Start: Unknown Non Smoker Recreational Drug Use Denies Drug Use Allergies, Adverse Reactions, Alerts Description No Known Drug Allergies Medications Active Medications SIG Qnty Indications Ordering Provide r Date Omeprazole 20mg Capsules DR 20 MG By Mouth Daily 30caps K21.9 Tod Verduzco MD 09/04/2017 Fluticasone Propionate 50mcg/Act Suspension 2 Sprays To Each Nostril Daily 32units J31.0 Tod weiner MD 09/04/2017 Immunizations Description No Information Available Vital Signs Date Vital Result Comment 08/05/2021 12:40pm BP Systolic 120 mmHg BP Diastolic 68 mmHg Heart Rate 68 /min O2 % BldC Oximetry 98 % Height 70 inches 5'10" Weight 191.00 lb BMI (Body Mass Index) 27.4 kg/m2 [place] Body Weight 166 lb Neck Circumference in inches 16 [place] Score 9 Weight 86.638 kg BSA (Body Surface Area) 2.05 m2 09/29/2019 9:45am BP Systolic 126 mmHg BP Diastolic 68 mmHg Height 70 inches 5'10" Weight 183.38 lb BMI (Body Mass Index) 26.3 kg/m2 [place] Body Weight 166 lb Weight 83.179 kg BSA (Body Surface Area) 2.01 m2 Results Description No Information Available Procedures Description No Information Available Medical Devices Description No Information Available Encounters Description No Information Available Assessments Date Code Description Provider 08/05/2021 G47.33 Obstructive sleep apnea (adult) (pediatric) MANGO Mitchell Plan of Treatment Future Appointment(s):* 09/09/2021 3:00 pm - MANGO Mitchell at [facility] Pulmonary/Thoracic * 08/20/2021 7:45 pm - [facility] Sleep Lab at [facility] Pulmonary/Thoracic 08/05/2021 - MANGO Mitchell* G47.33 Obstructive sleep apnea (adult) (pediatric) * * New Orders:* Sleep Nocturnal Diagnostic Sleep Study, Ordered: 08/05/21 * Comments:* 1. The morbidity of untreated obstructive sleep apnea was reviewed and questions were answered.2. PSG and PAP therapy were reviewed and questions were answered.3. We will schedule for PSG.4. Sleep hygiene was reviewed. * Follow up:* 1. Follow up after testing. Functional Status Description No Information Available Mental Status Mental Condition Comment Date Status Cognitive ability not impaired A ctive Referrals Refer to Reason for Referral Status Appt Date America Rose F.N.P. +HST Scheduled 07/15/2021 [facility]-Pulmonary [address] [place], [place] [address] [phone]
--- OUTSIDE RECORDS SUMMARY | 2021-10-14 19:10 | CCD | Continuity of Care Document ---
Author Author Sridhar SAAVEDRA I PA Organization Unknown Address [address] [place] [address] Phone [phone] Care Team Providers Care Compliance Tester Name Role Phone Daryl Vallecillo AUTM [phone] [facility] Rehab AUTM [phone] Evelio Winchester M.D. AUTM [phone] James Gabriel AUTM [phone] AUTM Unavailable AUTM Unavailable Problems Active Problems [...] Smokeless Tobacco ETOH Use Currently consumes alcohol [place]Y /DRINK OCCASIONALLY Tobacco Use Start: Unknown Non Smoker Recreational Drug Use Denies Drug Use Allergies, Adverse Reactions, Alerts Description No Known Drug Allergies Medications Active Medications SIG Qnty Indications Ordering Provide r Date Omeprazole 20mg Capsules DR 20 MG By Mouth Daily 30caps K21.9 Tod Verduzco MD 09/04/2017 Fluticasone Propionate 50mcg/Act Suspension 2 Sprays To Each Nostril Daily 32units J31.0 Tdo weiner MD 09/04/2017 Immunizations Description No Information Available Vital Signs Date Vital Result Comment 08/05/2021 12:40pm BP Systolic 120 mmHg BP Diastolic 68 mmHg Heart Rate 68 /min O2 % BldC Oximetry 98 % Height 70 inches 5'10" Weight 191.00 lb BMI (Body Mass Index) 27.4 kg/m2 [place] Body Weight 166 lb Neck Circumference in inches 16 [place] Score 9 Weight 86.638 kg BSA (Body Surface Area) 2.05 m2 09/29/2019 9:45am BP Systolic 126 mmHg BP Diastolic 68 mmHg Height 70 inches 5'10" Weight 183.38 lb BMI (Body Mass Index) 26.3 kg/m2 [place] Body Weight 166 lb Weight 83.179 kg BSA (Body Surface Area) 2.01 m2 Results Description No Information Available Procedures Description No Information Available Medical Devices Description No Information Available Encounters Description No Information Available Assessments Date Code Description Provider 08/05/2021 G47.33 Obstructive sleep apnea (adult) (pediatric) MANGO Mitchell Plan of Treatment Future Appointment(s):* 09/09/2021 3:00 pm - MANGO Mitchell at [facility] Pulmonary/Thoracic * 08/20/2021 7:45 pm - [facility] Sleep Lab at [facility] Pulmonary/Thoracic 08/05/2021 - MANGO Mitchell* G47.33 [...] Date America Rose F.N.P. +HST Scheduled 07/15/2021 [facility]-Pulmonary [address] [place], [place] [address] [phone]
--- OUTSIDE RECORDS SUMMARY | 2021-10-14 19:10 | CCD | Continuity of Care Document ---
Author Author Sridhar SAAVEDRA I PA Organization Unknown Address [address] [place] [address] Phone [phone] Care Team Providers Care Slime Plant Operator Name Role Phone Daryl Vallecillo AUTM [phone] [facility] Rehab AUTM [phone] Evelio Winchester M.D. AUTM James Gabriel AUTM [phone] AUTM Unavailable AUTM Unavailable Problems Active Problems [...] MD Onset: 12/12/2017 Obstructive sleep apnea syndrome MANGO Mitchell Onset: 08/05/2021 Social History Type Date [...] lb BMI (Body Mass Index) 27.4 kg/m2 [place] Body Weight 166 lb Neck Circumference in inches 16 [place] Score 9 Weight 86.638 kg BSA (Body Surface Area) 2.05 m2 09/29/2019 9:45am BP Systolic 126 mmHg BP Diastolic 68 mmHg Height 70 inches 5'10" Weight 183.38 lb BMI (Body Mass Index) 26.3 kg/m2 [place] Body Weight 166 lb Weight 83.179 kg BSA (Body Surface Area) 2.01 m2 Results Description No Information Available Procedures Date Code Description Status 08/05/2021 [address]3656 Office/Outpatient New Low MDM 30 -44 Minutes Completed Medical Devices Description No Information Available Encounters Type Date Location Provider Dx Diagnosis Office Visit 08/05/2021 1:00p [facility] Pulmonary/Thoracic MANGO Mitchell G47.33 Obstructive sleep apnea (adult) (pediatr ic) Assessments Date Code Description Provider 08/05/2021 G47.33 Obstructive sleep apnea (adult) (pediatric) MANGO Mitchell Plan of Treatment Future Appointment(s):* 09/09/2021 3:00 pm - MANGO Mitchell at [facility] Pulmonary/Thoracic * 08/20/2021 7:45 pm - [facility] Sleep Lab at [facility] Pulmonary/Thoracic 08/05/2021 - MANGO Mitchell* G47.33 [...] for Referral Status Appt Date America Rose F.NSukhdevPSukhdev +HST Scheduled 07/15/2021 [facility]-Pulmonary [address] [place], [place] [address] [phone]
--- OUTSIDE RECORDS SUMMARY | 2021-10-14 19:10 | CCD | Continuity of Care Document ---
Author Author Sridhar SAAVEDRA I PA Organization Unknown Address [address] [place] [address] Phone [phone] Care Team Providers Care Rn Cvicu Name Role Phone Daryl Vallecillo AUTM [phone] [facility] Rehab AUTM [phone] Evelio Winchester M.D. AUTM James Gabriel AUTM [phone] AUTM Unavailable AUTM Unavailable Problems Active Problems [...] Smokeless Tobacco ETOH Use Currently consumes alcohol [employer] /DRINK OCCASIONALLY Tobacco Use Start: Unknown [...] lb BMI (Body Mass Index) 27.4 kg/m2 [place] Body Weight 166 lb Neck Circumference in inches 16 [place] Score 9 Weight 86.638 kg BSA (Body Surface Area) 2.05 m2 09/29/2019 9:45am BP Systolic 126 mmHg BP Diastolic 68 mmHg Height 70 inches 5'10" Weight 183.38 lb BMI (Body Mass Index) 26.3 kg/m2 [place] Body Weight 166 lb Weight 83.179 kg BSA (Body Surface Area) 2.01 m2 Results Description No Information Available Procedures Description No Information Available Medical Devices Description No Information Available Encounters Description No Information Available Assessments Date Code Description Provider 08/05/2021 G47.33 Obstructive sleep apnea (adult) (pediatric) MANGO Mitchell Plan of Treatment Future Appointment(s):* 09/09/2021 3:00 pm - MANGO Mitchell at [facility] Pulmonary/Thoracic * 08/20/2021 7:45 pm - [facility] Sleep Lab at [facility] Pulmonary/Thoracic 08/05/2021 - MANGO Mitchell* G47.33 [...] Date America Rose F.N.P. +HST Scheduled 07/15/2021 [facility]-Pulmonary [address] [place], [place] [address] [phone]
--- OUTSIDE RECORDS SUMMARY | 2021-10-14 19:10 | CCD | Continuity of Care Document ---
Author Author Sridhar SAAVEDRA I PA Organization Unknown Address [address] [place] [address] Phone [phone] Care Team Providers Care Dental Professional Name Role Phone Daryl Vallecillo AUTM [phone] [facility] Rehab AUTM [phone] Evelio Winchester M.D. AUTM James Gabriel AUTM [phone] AUTM Unavailable AUTM Unavailable Problems Active Problems [...] lb BMI (Body Mass Index) 27.4 kg/m2 [place] Body Weight 166 lb Neck Circumference in inches 16 [place] Score 9 Weight 86.638 kg BSA (Body Surface Area) 2.05 m2 09/29/2019 9:45am BP Systolic 126 mmHg BP Diastolic 68 mmHg Height 70 inches 5'10" Weight 183.38 lb BMI (Body Mass Index) 26.3 kg/m2 [place] Body Weight 166 lb Weight 83.179 kg BSA (Body Surface Area) 2.01 m2 Results Description No Information Available Procedures Description No Information Available Medical Devices Description No Information Available Encounters Description No Information Available Assessments Date Code Description Provider 08/05/2021 G47.33 Obstructive sleep apnea (adult) (pediatric) MANGO Mitchell Plan of Treatment Future Appointment(s):* 09/09/2021 3:00 pm - MANGO Mitchell at [facility] Pulmonary/Thoracic * 08/20/2021 7:45 pm - [facility] Sleep Lab at [facility] Pulmonary/Thoracic 08/05/2021 - MANGO Mitchell* G47.33 [...] Date America Rose F.N.P. +HST Scheduled 07/15/2021 [facility]-Pulmonary [address] [place], [place] [address] [phone]
--- OUTSIDE RECORDS SUMMARY | 2021-10-14 19:10 | CCD | Continuity of Care Document ---
Author Author Sridhar SAAVEDRA I PA Organization Unknown Address [address] [place] [address] Phone [phone] Care Team Providers Care Principal Solutions Architect Name Role Phone Daryl Vallecillo AUTM [phone] [facility] Rehab AUTM [phone] Evelio Winchester M.D. AUTM James Gabriel AUTM [phone] AUTM Unavailable AUTM Unavailable Problems Active Problems [...] lb BMI (Body Mass Index) 27.4 kg/m2 [place] Body Weight 166 lb Neck Circumference in inches 16 [place] Score 9 Weight 86.638 kg BSA (Body Surface Area) 2.05 m2 09/29/2019 9:45am BP Systolic 126 mmHg BP Diastolic 68 mmHg Height 70 inches 5'10" Weight 183.38 lb BMI (Body Mass Index) 26.3 kg/m2 [place] Body Weight 166 lb Weight 83.179 kg BSA (Body Surface Area) 2.01 m2 Results Description No Information Available Procedures Description No Information Available Medical Devices Description No Information Available Encounters Description No Information Available Assessments Date Code Description Provider 08/05/2021 G47.33 Obstructive sleep apnea (adult) (pediatric) MANGO Mitchell Plan of Treatment Future Appointment(s):* 09/09/2021 3:00 pm - MANGO Mitchell at [facility] Pulmonary/Thoracic * 08/20/2021 7:45 pm - [facility] Sleep Lab at [facility] Pulmonary/Thoracic 08/05/2021 - MANGO Mitchell* G47.33 [...] Date America Rose F.N.P. +HST Scheduled 07/15/2021 [facility]-Pulmonary [address] [place], [place] [address] [phone]
--- OUTSIDE RECORDS SUMMARY | 2021-10-14 19:11 | CCD ---
Author Author [facility] Organization [facility] Address Unknown Phone Unavailable Care Team Providers Care Euclid Operator Name Role Phone Arnel Olivares MD Unavailable Unavailable Arnel Olivares MD Unavailable Unavailable Arnel Olivares MD Unavailable Unavailable Arnel Olivares MD Unavailable Unavailable Arnel Olivares MD Unavailable Unavailable Arnel Olivares MD Unavailable Unavailable Fish, B Daryl WHITFIELD Unavailable Unavailable Fish, B Daryl WHITFIELD Unavailable Unavailable Fish, B Daryl WHITFIELD Unavailable Unavailable Fish, B Daryl WHITFIELD Unavailable Unavailable Fish, B Daryl WHITFIELD Unavailable Unavailable Fish, B Daryl WHITFIELD Unavailable Unavailable Fish, B Daryl WHITFIELD Unavailable Unavailable Fish, B Daryl WHITFIELD Unavailable Unavailable Fish, B Daryl WHITFIELD Unavailable Unavailable Fish, B Daryl WHITFIELD Unavailable Unavailable Fish, B Daryl WHITFIELD Unavailable Unavailable Fish, B Daryl WHITFIELD Unavailable Unavailable Fish, B Daryl WHITFIELD Unavailable Unavailable Fish, B Daryl WHITFIELD Unavailable Unavailable Fish, B Daryl WHITFIELD Unavailable Unavailable Fish, B Daryl WHITFIELD Unavailable Unavailable Fish, B Daryl WHITFIELD Unavailable Unavailable Fish, B Daryl WHITFIELD Unavailable Unavailable Fish, B aDryl WHITFIELD Unavailable Unavailable Fish, B Daryl WHITFIELD Unavailable Unavailable Fish, B Daryl WHITFIELD Unavailable Unavailable Fish, B Daryl WHITFIELD Unavailable Unavailable Fish, B Daryl WHITFIELD Unavailable Unavailable Fish, B Daryl WHITFIELD Unavailable Unavailable Fish, B Daryl WHITFIELD Unavailable Unavailable Fish, B Daryl WHITFIELD Unavailable Unavailable Fish, B Daryl WHITFIELD Unavailable Unavailable Fish, B Daryl WHITFIELD Unavailable Unavailable Fish, B Daryl WHITFIELD Unavailable Unavailable Fish, B Daryl WHITFIELD Unavailable Unavailable Fish, B Daryl WHITFIELD Unavailable Unavailable Fish, B Daryl WHITFIELD Unavailable Unavailable Fish, B Daryl WHITFIELD Unavailable Unavailable Fish, B Daryl WHITFIELD Unavailable Unavailable Fish, B Daryl WHITFIELD Unavailable Unavailable Fish, B Daryl WHITFIELD Unavailable Unavailable Fish, B Daryl WHITFIELD Unavailable Unavailable Fish, B Daryl WHITFIELD Unavailable Unavailable Fish, B Daryl WHITFIELD Unavailable Unavailable Fish, B Daryl WHITFIELD Unavailable Unavailable Fish, B Daryl WHITFIELD Unavailable Unavailable Fish, B Daryl WHITFIELD Unavailable Unavailable Fish, B Daryl WHITFIELD Unavailable Unavailable Fish, B Daryl WHITFIELD Unavailable Unavailable Fish, B Daryl WHITFIELD Unavailable Unavailable Fish, B Daryl WHITFIELD Unavailable Unavailable Fish, B Daryl WHITFIELD Unavailable Unavailable Fish, B Daryl WHITFIELD Unavailable Unavailable Fish, B Daryl WHITFIELD Unavailable Unavailable Fish, B Daryl WHITFIELD Unavailable Unavailable Fish, B Daryl WHITFIELD Unavailable Unavailable Fish, B Daryl WHITFIELD Unavailable Unavailable Fish, B Daryl WHITFIELD Unavailable Unavailable Fish, B Daryl WHITFIELD Unavailable Unavailable Fish, B Daryl WHITFIELD Unavailable Unavailable Fish, B Daryl WHITFIELD Unavailable Unavailable Fish, B Daryl WHITFIELD Unavailable Unavailable Avel, Daryl PA Unavailable Unavailable Avel, Daryl PA Unavailable Unavailable Avel, Daryl PA Unavailable Unavailable Avel, Daryl PA Unavailable Unavailable Avel, Daryl PA Unavailable Unavailable Avel, Daryl PA Unavailable Unavailable Avel, Daryl PA Unavailable Unavailable Avel, Daryl PA Unavailable Unavailable Avel, Daryl PA Unavailable Unavailable Avel, Daryl PA Unavailable Unavailable Avel, Daryl PA Unavailable Unavailable Avel, Daryl PA Unavailable Unavailable Avel, Daryl PA Unavailable Unavailable Avel, Daryl PA Unavailable Unavailable Avel, Daryl PA Unavailable Unavailable Avel, Daryl PA Unavailable Unavailable Avel, Daryl PA Unavailable Unavailable Avel, Daryl PA Unavailable Unavailable Avel, Daryl PA Unavailable Unavailable Avel, Daryl PA Unavailable Unavailable Avel, Daryl PA Unavailable Unavailable Avel, Daryl PA Unavailable Unavailable Avel, Daryl PA Unavailable Unavailable Avel, Daryl PA Unavailable Unavailable Avel, Daryl PA Unavailable Unavailable Avel, Daryl PA Unavailable Unavailable Avel, Daryl PA Unavailable Unavailable Avel, Daryl PA Unavailable Unavailable Avel, Daryl PA Unavailable Unavailable Avel, Daryl PA Unavailable Unavailable Avel, Daryl PA Unavailable Unavailable Avel, Daryl PA Unavailable Unavailable Avel, Daryl PA Unavailable Unavailable Avel, Daryl PA Unavailable Unavailable Avel, Daryl PA Unavailable Unavailable Avel, Daryl PA Unavailable Unavailable Avel, Daryl PA Unavailable Unavailable Avel, Daryl PA Unavailable Unavailable Avel, Daryl PA Unavailable Unavailable Avel, Daryl PA Unavailable Unavailable Avel, Daryl PA Unavailable Unavailable Avel, Daryl PA Unavailable Unavailable Avel, Daryl PA Unavailable Unavailable Avel, Daryl PA Unavailable Unavailable Avel, Daryl PA Unavailable Unavailable Avel, Daryl PA Unavailable Unavailable Avel, Daryl PA Unavailable Unavailable Avel, Daryl PA Unavailable Unavailable Avel, Daryl PA Unavailable Unavailable Avel, Daryl PA Unavailable Unavailable Avel, Daryl PA Unavailable Unavailable Avel, Daryl PA Unavailable Unavailable Avel, Daryl PA Unavailable Unavailable Avel, Daryl PA Unavailable Unavailable Avel, Daryl PA Unavailable Unavailable Phoenix, M Barratt PA Unavailable Unavailable Phoenix, M Barratt PA Unavailable Unavailable Phoenix, M Barratt PA Unavailable Unavailable Phoenix, M Barratt PA Unavailable Unavailable Phoenix, M Barratt PA Unavailable Unavailable Phoenix, M Barratt PA Unavailable Unavailable Phoenix, M Barratt PA Unavailable Unavailable Phoenix, M Barratt PA Unavailable Unavailable Phoenix, M Barratt PA Unavailable Unavailable Phoenix, M Barratt PA Unavailable Unavailable Phoenix, M Barratt PA Unavailable Unavailable Phoenix, M Barratt PA Unavailable Unavailable Phoenix, M Barratt PA Unavailable Unavailable Phoenix, M Barratt PA Unavailable Unavailable Phoenix, M Barratt PA Unavailable Unavailable Phoenix, M Barratt PA Unavailable Unavailable Phoenix, M Barratt PA Unavailable Unavailable Phoenix, M Barratt PA Unavailable Unavailable Phoenix, M Barratt PA Unavailable Unavailable Phoenix, M Barratt PA Unavailable Unavailable Phoenix, M Barratt PA Unavailable Unavailable Phoenix, M Barratt PA Unavailable Unavailable Phoenix, M Barratt PA Unavailable Unavailable Phoenix, M Barratt PA Unavailable Unavailable Phoenix, M Barratt PA Unavailable Unavailable Edelmira Phoenix PA Unavailable Unavailable Edelmira Phoenix PA Unavailable Unavailable Edelmira Phoenix PA Unavailable Unavailable Phoenix, M Barrjosey PA Unavailable Unavailable O'inés, A James PA Unavailable Unavailable O'inés, A James PA Unavailable Unavailable O'inés, A James PA Unavailable Unavailable O'inés, A James PA Unavailable Unavailable O'inés, A James PA Unavailable Unavailable O'inés, A James PA Unavailable Unavailable O'inés, A James PA Unavailable Unavailable O'inés, A James PA Unavailable Unavailable O'inés, A James PA Unavailable Unavailable O'inés, A James PA Unavailable Unavailable O'inés, A James PA Unavailable Unavailable O'inés, A James PA Unavailable Unavailable O'inés, A James PA Unavailable Unavailable O'inés, A James PA Unavailable Unavailable O'inés, A James PA Unavailable Unavailable O'inés, A James PA Unavailable Unavailable O'inés, A James PA Unavailable Unavailable O'inés, A James PA Unavailable Unavailable O'inés, A James PA Unavailable Unavailable O'inés, A James PA Unavailable Unavailable O'inés, A James PA Unavailable Unavailable O'inés, A James PA Unavailable Unavailable O'inés, A James PA Unavailable Unavailable O'inés, A James PA Unavailable Unavailable O'inés, A James PA Unavailable Unavailable O'inés, A James PA Unavailable Unavailable O'inés, A James PA Unavailable Unavailable O'inés, A James PA Unavailable Unavailable O'inés, A James PA Unavailable Unavailable O'inés, A James PA Unavailable Unavailable O'inés, A James PA Unavailable Unavailable O'inés, A James PA Unavailable Unavailable O'inés, A James PA Unavailable Unavailable Jeter, L Lupe PA Unavailable Unavailable Jeter, L Lupe PA Unavailable Unavailable Jeter, L Lupe PA Unavailable Unavailable Jeter, L Lupe PA Unavailable Unavailable Jeter, L Lupe PA Unavailable Unavailable Jeter, L Lupe PA Unavailable Unavailable Jeter, L Lupe PA Unavailable Unavailable Jeter, L Lupe PA Unavailable Unavailable Jeter, L Lupe PA Unavailable Unavailable Jeter, L Lupe PA Unavailable Unavailable Jeter, L Lupe PA Unavailable Unavailable Jeter, L Lupe PA Unavailable Unavailable Jeter, L Lupe PA Unavailable Unavailable Jeter, L Lupe PA Unavailable Unavailable Jeter, L Lupe PA Unavailable Unavailable Jeter, L Lupe PA Unavailable Unavailable Jeter, L Lupe PA Unavailable Unavailable Jeter, L Lupe PA Unavailable Unavailable Jeter, L Lupe PA Unavailable Unavailable Jeter, L Lupe PA Unavailable Unavailable Jeter, L Lupe PA Unavailable Unavailable Jeter, L Lupe PA Unavailable Unavailable Jeter, L Lupe PA Unavailable Unavailable Jeter, L Lupe PA Unavailable Unavailable Jeter, L Lupe PA Unavailable Unavailable Jeter, L Lupe PA Unavailable Unavailable Jeter, L Lupe PA Unavailable Unavailable Jeter, L Lupe PA Unavailable Unavailable Jeter, L Lupe PA Unavailable Unavailable Jeter, L Lupe PA Unavailable Unavailable Jeter, L Lupe PA Unavailable Unavailable Jeter, L Lupe PA Unavailable Unavailable Jeter, L Lupe PA Unavailable Unavailable Jeter, L Lupe PA Unavailable Unavailable Jeter, L Lupe PA Unavailable Unavailable Jeter, L Lupe PA Unavailable Unavailable Jeter, L Lupe PA Unavailable Unavailable Jeter, L Lupe PA Unavailable Unavailable Jeter, L Lupe PA Unavailable Unavailable SAAVEDRA, M CLARY PA Unavailable Unavailable SAAVEDRA, M CLARY PA Unavailable Unavailable SAAVEDRA, M CLARY PA Unavailable Unavailable SAAVEDRA, M CLARY PA Unavailable Unavailable SAAVEDRA, M CLARY PA Unavailable Unavailable SAAVEDRA, M CLARY PA Unavailable Unavailable SAAVEDRA, M CLARY PA Unavailable Unavailable SAAVEDRA, M CLARY PA Unavailable Unavailable SAAVEDRA, M CLARY PA Unavailable Unavailable SAAVEDRA, M CLARY PA Unavailable Unavailable SAAVEDRA, M CLARY PA Unavailable Unavailable SAAVEDRA, M CLARY PA Unavailable Unavailable SAAVEDRA, M CLARY PA Unavailable Unavailable SAAVEDRA, M CLARY PA Unavailable Unavailable SAAVEDRA, M CLARY PA Unavailable Unavailable SAAVEDRA, M CLARY PA Unavailable Unavailable SAAVEDRA, M CLARY PA Unavailable Unavailable SAAVEDRA, M CLARY PA Unavailable Unavailable SAAVEDRA, M CLARY PA Unavailable Unavailable SAAVEDRA, M CLARY PA Unavailable Unavailable SAAVEDRA, M CLARY PA Unavailable Unavailable SAAVEDRA, M CLARY PA Unavailable Unavailable SAAVEDRA, M CLARY PA Unavailable Unavailable SAAVEDRA, M CLARY PA Unavailable Unavailable SAAVEDRA, M CLARY PA Unavailable Unavailable SAAVEDRA, M CLARY PA Unavailable Unavailable SAAVEDRA, M CLARY PA Unavailable Unavailable SAAVEDRA, M CLARY PA Unavailable Unavailable SAAVEDRA, M CLARY PA Unavailable Unavailable SAAVEDRA, M CLARY PA Unavailable Unavailable SAAVEDRA, M CLARY PA Unavailable Unavailable SAAVEDRA, Edelmira COBIAN Unavailable Unavailable SAAVEDRA, Edelmira COBIAN Unavailable Unavailable SAAVEDRA, Edelmira COBIAN Unavailable Unavailable SAAVEDRA, Edelmira COBIAN Unavailable Unavailable Re-disclosure Warning The records that you are about to access may contain information from federally-assisted alcohol or drug abuse programs. If such information is present, then the following federally mandated warning applies: This information has been disclosed to you from records protected by federal confidentiality rules (42 CFR part 2). The federal rules prohibit you from making any further disclosure of this information unless further disclosure is expressly permitted by the written consent of the person to whom it pertains or as otherwise permitted by 42 CFR part 2. A general authorization for the release of medical or other information is NOT sufficient for this purpose. The Federal rules restrict any use of the information to criminally investigate or prosecute any alcohol or drug abuse patient.The records that you are about to access may contain highly sensitive health information, the redisclosure of which is protected by Article 27-F of the [facility] Public Health law. If you continue you may have access to information: Regarding HIV / AIDS; Provided by facilities licensed or operated by the [facility] Office of Mental Health; or Provided by the [facility] Office for People With Developmental Disabilities. If such information is present, then the following [facility] mandated warning applies: This information has been disclosed to you from confidential records which are protected by state law. State law prohibits you from making any further disclosure of this information without the specific written consent of the person to whom it pertains, or as otherwise permitted by law. Any unauthorized further disclosure in violation of state law may result in a fine or long term sentence or both. A general authorization for the release of medical or other information is NOT sufficient authorization for further disc losure. Family History Family Member Name Family Member Gender Family Member Status Date o f Status Description Data Source(s) Unknown Unknown Problem [facility] ([facility]) Encounters Encounter Providers Location Date Indications Data Source(s ) Outpatient Attender: CLARY Verduzco/Harinder/Raffi/Digna dl 09/09/2021 03:00:00 PM EDT [facility] ([facility] Outpatient Attender: James COBIAN [facility] 09/01/2021 01:10:00 PM EDT [facility] ([facility]) Outpatient Attender: CLARY Verduzco/Harinder/Raffi/Rein dl 08/05/2021 01:00:00 PM EDT [facility] ([facility] OFFICE OUTPATIENT VISIT 15 MINUTES Attender: Daryl Lovell MD Phys ical Therapy 06/02/2021 01:45:00 PM EDT [facility] ([facility]) Office Visit Attender: James COBIAN [facility] 06/01/2021 04:00:00 PM EDT [facility] ([facility]) Outpatient Attender: Lupe CORBETT-SJPSukhdevARIA 07/2021 03:06:22 PM EDT - 05/20/2021 04:11:41 PM EDT [facility] Outpatient Attender: Daryl COBIAN [facility] 05/20/2021 01:40:00 PM EDT [facility] ([facility]) Outpatient Attender: Daryl Lovell MD Physical Therapy 04/15/2021 0 1:45:00 PM EDT [facility] ([facility]) Outpatient Attender: James COBIAN [facility] 04/13/2021 03:30:00 PM EDT [facility] ([facility]) Outpatient Attender: Liseth COBIAN Physical Therapy 01:30:00 PM EDT [facility] ([facility]) Outpatient Attender: Mayo Olivares MD 03/09/2021 02:28:00 PM EDT [facility] Outpatient Attender: Mayo Olivares MD ER-LAB-PNP 03/04/2021 10:58:00 AM [facility] Outpatient Attender: James COBIAN [facility] 03/02/2021 04:00:00 PM EDT [facility] ([facility]) Outpatient Attender: Daryl Lovell MD Physical Therapy 03/02/2021 0 1:30:00 PM EDT [facility] ([facility]) Outpatient ARIC-SJRachelARIA 02/07/2021 12:00:00 AM EDT [facility] Outpatient Attender: Daryl Lovell MD Physical Therapy 02/03/2021 1 2:45:00 PM EDT [facility] ([facility]) Outpatient Attender: Lupe COBIAN SJP.ARIA-SJP.ARIA 03:06:06 PM EDT - 02/02/2021 04:22:28 PM EDT [facility] Outpatient Attender: James COBIAN [facility] 01/18/2021 01:30:00 PM EST [facility] ([facility]) Outpatient Attender: James COBIAN [facility] 12/01/2020 03:00:00 PM EST [facility] ([facility]) Outpatient [address] [id number] 11/30/2020 12:00:00 AM EST eCW1 ([facility]) Unknown [address] [facility] [id number] 11/29/2020 12:00:00 AM EST eCW1 ([facility]) Outpatient [address] [facility] [id number] 10/22/2020 12:00:00 AM EST eCW1 ([facility]) Unknown [address] [id number] 10/21/2020 12:00:00 AM EST eCW1 ([facility]) Outpatient [address] [id number] 10/19/2020 12:00:00 AM EST eCW1 ([facility]) Outpatient [address] [facility] [id number] 09/21/2020 12:00:00 AM EST eCW1 ([facility]) Outpatient Attender: James COBIAN [facility] 08/31/2020 03:30:00 PM EDT [facility] ([facility]) (PN Proc 45) Pain Procedure 45 [address] [place] [address] 08/26/2020 12:00:00 AM EDT eCW1 ([facility]) Immunizations Vaccine Date Status Description Data Source(s) Pneumococcal conjugate PCV 13 06/01/2021 08:15:00 PM EDT completed [facility] ([facility]) Pneumococcal conjugate PCV 13 06/01/2021 04:39:00 PM EDT completed [facility] ([facility]) COVID-19 VACCINE Moderna 02/16/2021 12:00:00 AM EDT completed [facility] Vaccine Series Complete: YESThis Data wa s Submitted to [facility] Via [employer]. COVID-19 VACCINE Moderna 01/19/2021 12:00:00 AM EST completed [facility] Vaccine Series Complete: NOThis Data was Submitted to [facility] [employer]. New in 2011. IIV4 08/31/2020 04:05:00 PM EDT completed [facility] ([facility]) Medications Medication Brand Name Start Date Product Form Dose Route Admi nistrative Instructions Pharmacy Instructions Status Indications Reaction Description Data Source(s) Citalopram 20 MG Oral Tablet Citalopram Hydrobromide 09/01/2021 12:00:00 AM EDT completed [facility] ([facility]) Citalopram 10 MG Oral Tablet Citalopram Hydrobromide 09/01/2021 12:00:00 AM EDT active [facility] ( [facility]) 24 HR Bupropion Hydrochloride 150 MG Extended Release Oral Tablet [Wellbutrin] Wellbutrin XL 09/01/2021 12:00:00 AM EDT ORAL active [facility] ([facility]) Trazodone Hydrochloride 50 MG Oral Tablet Trazodone HCL 08/28/2021 12:00:00 AM EDT active [facility] ([facility]) Vitamin D3 2,000Unit 08/16/2021 12:00:00 AM EDT active [facility] ([facility]) True Metrix Blood Glucosetest Strips 07/01/2021 12:00:00 AM EDT active [facility] ([facility]) Trueplus Lancets 33G 07/01/2021 12:00:00 AM EDT active [facility] ([facility]) Citalopram 10 MG Oral Tablet Citalopram Hydrobromide 06/23/2021 12:00:00 AM EDT completed [facility] ([facility]) atorvastatin 40 MG Oral Tablet Atorvastatin Calcium 06/23/2021 1 2:00:00 AM EDT active [facility] ( [facility]) Acetaminophen 300 MG / Codeine Phosphate 30 MG Oral Tablet [Tylenol with Codeine] Tylenol With Codeine #3 06/07/2021 12:00:00 AM EDT ORAL active [facility] ([facility]) carbamide peroxide 65 MG/ML Otic Solution [Debrox] Debrox 06/01/2021 12:00:00 AM EDT AURICULAR active [facility] ([facility]) Citalopram 20 MG Oral Tablet Citalopram Hydrobromide 06/01/2021 12:00:00 AM EDT completed [facility] ([facility]) Shingrix Shingrix 06/01/2021 12:00:00 AM EDT activ e [facility] ([facility]) Prevagen 06/01/2021 12:00:00 AM EDT ORAL active [facility] ([facility]) Prazosin 2 MG Oral Capsule Prazosin HCL 06/01/2021 12:00:00 AM EDT active [facility] ([facility]) ezetimibe 10 MG Oral Tablet ezetimibe (ZETIA) 10 MG ta blet ezetimibe (ZETIA) 10 MG tablet 05/20/2021 12:00:00 AM EDT 10 mg Oral act steve Mixed hyperlipidemia Take 1 tablet (10 mg total) by mouth magda ly [facility] Mixed hyperlipidemia clopidogrel 75 MG Oral Tablet Clopidogrel Bisulfate 04/15/2021 1 2:00:00 AM EDT completed [facility] ([facility]) Vitamin D3 2,000Unit 04/13/2021 12:00:00 AM EDT completed [facility] ([facility]) Apap Device With Other Neccessary Supplies. 04/13/2021 12:00 :00 AM EDT completed [facility] ([facility]) Blood Pressure Monitor Digital/Auto-Inflation 2020 12:00:00 AM EDT active [facility] ([facility]) [place] [facility] 03/02/2021 12:00:00 AM EDT active [facility] ([facility]) Diclofenac Sodium 0.01 MG/MG Topical Gel [Voltaren] Voltaren 01/18/2021 12:00:00 AM EST active [facility] ([facility]) Cane/Aluminum/Adjustable/Mens Handle 01/18/2021 12:00:00 AM EST active [facility] ([facility]) Blood Glucose Monitoring System 12/01/2020 12:00:00 AM EST completed [facility] ([facility]) Thiamine 100 MG Oral Tablet GNP Vitamin B-1 11/03/2020 12:00:00 AM EST active [facility] ([facility]) Vitamin B-1 100MG 09/06/2020 12:00:00 AM EDT completed [facility] ([facility]) clopidogrel 75 MG Oral Tablet clopidogrel (PLAVIX) 75 MG tablet clopidogrel (PLAVIX) 75 MG tablet 10/30/2019 12:00:00 AM EST 75 mg Oral aborted Take 1 tablet (75 mg total) by mouth daily [facility] Acetaminophen 500 MG Oral Tablet acetaminophen (TYLENO L) 500 MG tablet acetaminophen (TYLENOL) 500 MG tablet Oral aborted Take 1-2 tablets by mouth every 6 (six) hours as needed for pain [facility] Melatonin 1 MG Oral Capsule Melatonin 1 MG CAPS Melatonin 1 MG CAPS Oral aborted Take by mouth [facility] meloxicam 7.5 MG Oral Tablet meloxicam (MOBIC) 7.5 MG tablet meloxicam (MOBIC) 7.5 MG tablet 15 mg Oral aborted Ta ke 15 mg by mouth daily as needed for pain [facility] Fexofenadine hydrochloride 180 MG Oral T ablet fexofenadine (NANCY) 180 MG tablet fexofenadine (NANCY) 180 MG tablet 180 mg Oral aborted Take 180 mg by mouth daily as needed [facility] fluticasone (FLONASE) 50 MCG/ACT nasal spray [phone] 1 {spray} Nasal aborted 1 spray into each nostril da thony as needed for rhinitis [facility] Calcium Carbonate 500 MG Chewable Tablet calcium carbonate (TUMS) 500 MG chewable tablet calcium carbonate (TUMS) 500 MG chewable tablet 1 {tbl} Oral aborted Chew 1 tablet daily as needed for heartburn [facility] Insurance Providers Payer name Policy type / Coverage type Policy ID Covered libertarian ID Covered libertarian's relationship to milan Policy [place] Plan Information MEDICARE [id number] [employer] [id number] Self [id number] [employer] [id number] Self [id number] [employer] [id number] Self [id number] [employer] [id number] Self [id number] [employer] [facility] [employer] [id number] Self [id number] [employer] [id number] Self [id number] Blue [facility] [employer] [facility] [id number] Self [id number] [employer] [id number] Self [id number] [employer] [facility] [employer] [id number] Self [id number] [employer] [employer] [id number] 2.16.840.1.193686.3.227.99.806.1723.0 Self [id number] [employer] [id number] Self [id number] [facility] Part B [id number] 2.16.840.1.533[id number] Self [id number] [employer] [id number] 2.16.840.1.857903.3.227.99.806.1723.0 Self [id number] [employer] [id number] 2.16840.1.085412.3.227.99.806.1723.0 Self R5 [id number] [facility] Part B [id number] .[id number] Self [employer] [id number] 2.16.840.1.372383.3.227.99.806.1723.0 Self [id number] [employer] [id number]9.806.1723.0 Self [id number] [facility] Part B [id number] 2.16840.1.982176.3.227.99.8646.49699.0 Self [id number] MEDICARE [id number] SP [id number] A [employer] Medicare Commercial [id number] 2.16840.1.600438.3.227.99.8646.49072.0 Self [id number] [facility] Medicare Commercial [id number] 2.16840.1.331403.3.227.99.8646.99269.0 Self [id number] [employer] Medicare Commercial [id number] 2.16.840.1.564567.3.227.99.8646.19856.0 Self [id number] [employer] Medicare Commercial 2.0.1.1138 83.3.227.99.8646.06190.0 Self [employer] Medicare Commercial [id number] 2.0.1.588380.3.227.99.8646.93733.0 Self [id number] [employer] Medicare Commercial [id number] ..[id number] Self [id number] MEDICARE [id number] SP [id number] A MEDICARE COMPLETE [id number] SP [id number] [facility] [id number] SP [id number] [facility] FEDERAL EMPLOYEE PROGRAM [id number] SP [id number] [facility] FEDERAL EMPLOYEE PROGRAM [id number] SP [id number] [facility] FEDERAL EMPLOYEE PROGRAM [id number] SP [id number] [facility] FEDERAL [id number] SP [id number] Aet[employer] Supplemental Policy [id number] Self [id number] AETNA MEDICARE [id number] Patricia [id number] HUMANA MEDICARE [id number] [phone] [phone] HUMANA MEDICARE [id number] Patricia [id number] [facility] Commercial [id number] ..[id number] Self [id number] [place] Primary [id number] ..[id number] Self 25 [id number] [facility] Medigap Part B [id number] ..[id number] Self [id number] Medicare [place]/[facility] Medicare Primary [id number] ..[id number]21.0 Self [id number] [facility] Commercial [id number] ..[id number] Self [id number] Medicare [place] Medicare Primary [id number] 2.16.840.1.046990.3.227.99.806.1723.0 Self 25 [id number] Medicare [place] Medicare Primary [id number] 2.16.840.1.137990.3.227.99.806.1723.0 Self 25 [id number] Blue Shield Federal Medigap Part B [id number].8646.62814.0 Self [id number] Medicare [place] Medicare Primary [id number] 2.16840.1.911283.3.227.99.8646.53566.0 Self [id number] [facility] Medicare Solutions Medigap Part B [id number] 2.0.1.432113.3.227.99.806.1723.0 Self [id number] [facility] Medicare Solutions Medigap Part B [id number] 2.0.1.954467.3.227.99.806.1723.0 Self [id number] [facility] Federal Medigap Part B [id number] 2.0.1.056508.3.227.99.8646.62302.0 Self [id number] Medicare [place]/NGS Medicare Primary [id number] 2.840.1.148365.3.227.99.8646.62569.0 Self [id number] MEDICARE [id number] A Blue Shield Federal Medigap Part B [id number] 2.840.1.881757.3.227.99.8646.43622.0 Self [id number] Medicare [place] Medicare Primary [id number].8646.84924.0 Self [id number] Blue Shield Federal Medigap Part B [id number] 2.840.1.054378.3.227.99.8646.75834.0 Self [id number] Medicare [place]/NGS Medicare Primary [id number] 2.840.1.290634.3.227.99.8646.04869.0 Self [id number] MEDICARE C [id number] S [id number] A [employer] BCBS FEDERAL [id number] SP [id number] [facility] [id number] .[id number] Self [facility] Medicare Solutions Commercial [id number]. [id number] Self BCBS Federal Plan Commercial [id number] Self BC/BS U/W - Federal Plans Commercial [id number] Self Medicare Natl Gov't Servi Medicare Primary [id number] Self MEDICARE [id number] SP [id number] A SELF PAY ONLY UNAVAILABLE UNAV AILABLE HUMANA GOLD [id number] SP [id number] SELF PAY UNAVAILABLE SP UNAVAILA BLE Humana Care Plan Other 0 [id number] Self 0 HUMANA GOLD [id number] SP [id number] HUMANA GOLD [id number] SP [id number] [facility] [id number] S [id number] HUMANA PPO [id number] SP [id number] Humana Care Plan Other 0 [id number] Self 0 AETNA MEDICARE [id number] SP [id number] HUMANA GOLD [id number] SP [id number] HUMANA GOLD O [id number] S [id number] Humana Care Plan Other 0 [id number] Self 0 HUMANA PPO [id number] SP [id number] AETNA MEDICARE [id number] SP [id number] AETNA MEDICARE O [id number] S [id number] Medicare [facility] Medicare Primary [id number] Self [id number] [employer]et[employer] Commercial [id number] Self [id number] AETNA MEDICARE [id number] SP [id number] Aetna Medigap Part B [id number] [id number] .0 Self [id number] Medicare [place] Medicare Primary [id number] 2.840.1.231235.3.227.99.806.1723.0 Self 25 [id number] AETNA HEALTH SEIU JENNIFER O [id number] S [id number] MEDICARE C [id number] S [id number] A AETNA HEALTH CARE O [id number] S [id number] AETNA HEALTH CARE O UNAVAILABLE [id number] S UNAVAILABLE BS [facility] [id number] S [id number] Aetna Medigap Part B [id number] 2.0.1.916505.3.227.99.806.1723 .0 Self [id number] Medicare [place] Medicare Primary [id number] 2.0.1.033014.3.227.99.806.1723.0 Self 25 [id number] Aetna Medigap Part B [id number] 2.0.1.016556.3.227.99.806.1723 .0 Self [id number] Medicare [place] Medicare Primary [id number] 2.0.1.275628.3.227.99.806.1723.0 Self 25 [id number] BCBS [facility] [id number] S [id number] [place] MEDICARE DIVISION [id number] S [id number] MEDICARE - [place] [id number] S [id number] Aetna Medigap Part B [id number] 2.0.1.958529.3.227.99.806.1723 .0 Self [id number] Medicare [place] Medicare Primary [id number] Self 25 [id number] [facility] Commercial [id number] Self [id number] Medicare [place] Medicare Primary [id number] Self 25 [id number] [facility] Commercial [id number] Self [id number] Medicare [place] Medicare Primary [id number] Self 25 [id number] Problems, Conditions, and Diagnoses Code Display Name Description Problem Type Effective Dates Data Source(s) R73.03 Prediabetes Prediabetes Diagnosis 05/20/2021 03:06:22 PM EDT [facility] Z01.818 Encounter for other preprocedural examin ation Encounter for other preprocedural examin Diagnosis 05/20/2021 03:06:22 PM EDT [facility] K57.92 Diverticulitis of intestine, part unspecified, without perforation or abscess without bleeding Diverticulitis of intestine, part unspec Diagnosis 05/20/2021 03:06:22 PM EDT [facility] I50.31 Acute diastolic (congestive) heart failu re Acute diastolic (congestive) heart failu Diagnosis 05/20/2021 03:06:22 PM EDT [facility] E78.2 Mixed hyperlipidemia Mixed hyperlipidemia Diagnosis 05/20/2021 03:06:22 PM EDT [facility] 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 Atherosclerotic heart disease of nikolai Diagnosis 05/20/2021 03:06:22 PM EDT [facility] J45.998 Other asthma OTHER ASTHMA Diagnosis 03/09/2021 02:28:00 P M EDT [facility] Z20.822 CONTACT WITH AND (SUSPECTED) EXPOSURE TO COVID-19 CONTACT WITH AND (SUSPECTED) EXPOSURE TO COVID-19 Diagnosis 03/04/2021 10:58:00 AM EDT [facility] G47.33 Obstructive sleep apnea syndrome Obstructive sle ep apnea syndrome Problem 08/05/2021 12:00:00 AM EDT [facility] ([facility]mi, ) R73.03 Pre-diabetes Pre-diabetes [id number] 05/20/2021 12:00:00 A M EDT [facility] Z01.818 Preop examination Preop examination [id number] 05/20/2021 12:00:00 AM EDT [facility] E78.2 Mixed hyperlipidemia Mixed hyperlipidemia [id number] 05/20/2021 12:00:00 AM EDT [facility] I10 Essential hypertension Essential hypertension Problem 03/02/2021 12:00:00 AM EDT [facility] ([facility]) G89.29 Chronic pain Other chronic pain Problem 09/21/2020 12:0 0:00 AM EST eCW1 ([facility]) R73.03 Prediabetes Prediabetes Problem 08/31/2020 12:00:00 AM EDT [facility] ([facility]) Surgeries/Procedures Procedure Description Date Indications Data Source(s) OFFICE OUTPATIENT VISIT 15 MINUTES 09/09/2021 12:00:00 AM EDT [facility] ([facility], ) OFFICE OUTPATIENT VISIT 25 MINUTES 09/01/2021 12:00:00 AM EDT [facility] ([facility]) OFFICE OUTPATIENT NEW 30 MINUTES 08/05/2021 12:00:00 A M EDT [facility] ([facility], ) OFFICE OUTPATIENT VISIT 15 MINUTES 06/02/2021 12:00:00 AM EDT [facility] ([facility]) ECG ROUTINE ECG W/LEAST 12 LDS W/I&R <td>POCT AMB EKG</td><td>Routine</td><td>05/20/2021 4:25 PM EDT</td><td> 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 Preop examination</td><td> </td> 05/20/2021 04:25:00 PM EDT Preop examination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 [facility] Preop examination 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 OFFICE OUTPATIENT VISIT 25 MINUTES 05/20/2021 12:00:00 AM EDT [facility] ([facility]) Physical Therapy Eval - Low Complexity 04/21/2021 12:0 0:00 AM EDT [facility] ([facility]) OFFICE OUTPATIENT VISIT 25 MINUTES 04/15/2021 12:00:00 AM EDT [facility] ([facility]) OFFICE OUTPATIENT VISIT 15 MINUTES 04/13/2021 12:00:00 AM EDT [facility] ([facility]) OFFICE OUTPATIENT VISIT 25 MINUTES 03/30/2021 12:00:00 AM EDT [facility] ([facility]) ARTHROCENTESIS ASPIR&/INJECTION MAJOR JT/BURSA 12:00:00 AM EDT [facility] ([facility]) OFFICE OUTPATIENT VISIT 25 MINUTES 03/02/2021 12:00:00 AM EDT [facility] ([facility]) OFFICE OUTPATIENT VISIT 25 MINUTES 03/02/2021 12:00:00 AM EDT [facility] ([facility]) MRI Lower Extremity Any Joint 02/18/2021 12:00:00 AM E DT [facility] ([facility]) OFFICE OUTPATIENT VISIT 25 MINUTES 02/03/2021 12:00:00 AM EDT [facility] ([facility]) POCT AMB EKG <td>POCT AMB EKG</td><td>Ralph silverman</td><td>02/02/2021 4:46 PM EDT</td><td> 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</td><td> </td> 02/02/2021 08:46:00 PM EDT 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 [facility] 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 OFFICE OUTPATIENT VISIT 15 MINUTES 01/18/2021 12:00:00 AM EST [facility] ([facility]) OFFICE OUTPATIENT VISIT 25 MINUTES 12/01/2020 12:00:00 AM EST [facility] ([facility]) Pain Procedure Log 09/21/2020 12:00:00 AM EST eCW1 ([facility]) HEMOGLOBIN GLYCOSYLATED A1C <td>HEMOGLOBIN A1C</td><td>Routine</td><td>08/31/2020</td><td></td><td> </td> 08/31/2020 12:00:00 AM EDT [facility] Medication: [place] Tablet 5mg/325mg Orally (Hydrocodone/Aceta minophen) 08/26/2020 12:00:00 AM EDT eCW1 ([facility]) Unclassified drugs 08/26/2020 12:00:00 AM EDT eCW1 ([facility]) Results ID Date Data Source [id number] 05/20/2021 05:27:00 PM EDT [facility] ([facility]) Name Value Range Interpretation Code Description Data Tabby rce(s) Supporting Document(s) aPTT in Platelet poor plasma by Coagulation assay 28.7 s 24.2-38.5 Normal (applies to non-numeric results) [facility] ([facility]) ID Date Data Source [id number] 05/20/2021 05:27:00 PM EDT [facility]) Name Value Range Interpretation Code Description Data Tabby rce(s) Supporting Document(s) Prothrombin Time 11.9 s 12.5-14.3 Normal (applies to non-numeric results) [facility] ([facility]) Inr 0.86 Normal (applies to non-numeric resul ts) [facility] ([facility]) THERAPUTIC HUMAN INR VALUES INDICATIONS NORMAL RANGES PROPHYLAXIS/TREATMENT OF: VENOUS THROMBOSIS 2.0-3.0 PULMONARY EMBOLISM 2.0-3.0 PREVENTION OF SYSTEMIC EMBOLISM FROM: TISSUE HEART VALVES 2.0-3.0 ACUTE MYOCARDIAL INFARCTION 2.0-3.0 VALVULAR HEART DISEASE 2.0-3.0 ATRIAL FIBRILLATION 2.0-3.0 MECHANICAL VALVES(HIGH RISK) 2.5-3.5 RECURRENT MYOCARDIAL INFARCTION 2.5-3.5 ID Date Data Source [id number] 05/20/2021 05:27:00 PM EDT [facility] ([facility]) Name Value Range Interpretation Code Description Data Tabby rce(s) Supporting Document(s) Hemoglobin A1c 5.7 % Normal (applies to non-numeric r esults) [facility] ([facility]) <content>REFERENCE RANGES:</content><br/ ><content></content>
<content><=5.6% NORMAL</content>
<content>5.7-6.4% SUGGESTS IMPAIRED GLUCOSE METABOLISM/PREDIABETIC</content>
<content>>= 6.5% ABNORMAL</content>
<content></content> Estimated Average Glucose 117 mg/dL 60-110 Above high normal [facility] ([facility]) ID Date Data Source [id number] 05/20/2021 05:27:00 PM EDT [facility] ([facility]) Name Value Range Interpretation Code Description Data Tabby rce(s) Supporting Document(s) Red Blood Count 4.07 10 4.30-6.10 Below low normal [facility] ([facility]) Hemoglobin 12.8 g/dL 13.5-17.5 Below low normal [facility] ( [facility]) White Blood Count 5.5 10 4.0-10.0 Normal (applies to non-numeri c results) [facility] ([facility]) Mean Corpuscular Volume 95.3 fl 80.0-96.0 Normal ( applies to non-numeric results) [facility] ([facility]) Hematocrit 38.8 % 42.0-52.0 Below low normal [facility] ( [facility]) Red Cell Distribution Width 12.5 % 11.5-14.5 Norm al (applies to non-numeric results) [facility] ([facility]) Mean Corpuscular Hemoglobin 31.4 pg 27.0-33.0 Norm al (applies to non-numeric results) [facility] Mean Corpuscular HGB Conc 33.0 g/dL 32.0-36.5 Normal (applies to non-numeric results) [facility] ([facility]) Neutrophils % 56.8 % 36.0-66.0 Normal (applies to non-numeric re sults) [facility] ([facility]) Platelet Count, Automated 218 10 150-450 Normal (applies to non-numeric results) [facility] ([facility]) Lymph % 21.8 % 24.0-44.0 Below low normal [facility] ( [facility]) Baso % 0.4 % 0.0-1.0 Normal (applies to non-numeric resul ts) [facility] ([facility]) Eos % 11.2 % 0.0-3.0 Above high normal [facility] ([facility]) [place] % 9.4 % 2.0-8.0 Above high normal [facility] ([facility]) Immature Granulocyte % 0.4 % 0-3.0 Normal (applies to non-n umeric results) [facility] ([facility]) Nucleated Red Blood Cell % 0.0 % 0-0 Normal (applies to n on-numeric results) [facility] ([facility]) Lymph # 1.2 10 1.5-5.0 Below low normal [facility] ( [facility]) Neutrophils # 3.2 10 1.5-8.5 Normal (applies to non-numeric re sults) [facility] ([facility]) [place] # 0.5 10 0.0-0.8 Normal (applies to non-numeric resul ts) [facility] ([facility]) Baso # 0.0 10 0.0-0.2 Normal (applies to non-numeric resul ts) [facility] ([facility]) Eos # 0.6 10 0.0-0.5 Above high normal [facility] ([facility]) ID Date Data Source [id number] 05/20/2021 05:27:00 PM EDT [facility] ([facility]) Name Value Range Interpretation Code Description Data Tabby rce(s) Supporting Document(s) Glucose, Fasting 73 mg/dL 70-100 Normal (applies to non-numeric results) [facility] ([facility]) Blood Urea Nitrogen 11 mg/dL 7-18 Normal (applies to non-nume shana results) [facility]) Glomerular Filtration Rate Laboratory test result Normal (applies to non- numeric results) [facility] ([facility]) <content>Units are mL/min/1.73 m2</content>
<content></content>
<content>Chronic Kidney Disease Staging per NKF:</content>
<content></content>
<content>Stage I & II GFR >=60 Normal to Mildly Decreased</content>
<content>Stage III GFR 30- 59 Moderately Decreased</content>
<content>Stage IV GFR 15-29 Severely Decreased</content>
<content>Stage V GFR <15 Very Little GFR Left</content>
<content>ESRD GFR <15 on TELEPHONE CLERK</content>
<content></content> Creatinine For GFR 0.78 mg/dL 0.70-1.30 Normal (applies to non -numeric results) [facility] ([facility]) Potassium Serum 4.3 meq/L 3.5-5.1 Normal (applies to non-numeric results) [facility] ([facility]) Sodium Level 141 meq/L 136-145 Normal (applies to non-numeric res ults) [facility] ([facility]) Carbon Dioxide Level 25 meq/L 21-32 Normal (applies to non-num dipika results) [facility] ([facility]) Anion Gap 7 meq/L 8-16 Below low normal [facility] ( [facility]) Chloride Level 109 meq/L 98-107 Above high normal [facility] ([facility]) Calcium Level 10.3 mg/dL 8.8-10.2 Above high normal [facility] ([facility]) Ast/Sgot 15 U/L 7-37 Normal (applies to non-numeric resul ts) [facility]) Alkaline Phosphatase 69 U/L 45-117 Normal (applies to non-num dipika results) [facility] ([facility]) Alt/SGPT 32 U/L 12-78 Normal (applies to non-numeric resul ts) [facility]) Albumin 3.7 GM/DL 3.2-5.2 Normal (applies to non-numeric resul ts) [facility] ([facility]) Bilirubin,Total 0.9 mg/dL 0.2-1.0 Normal (applies to non-numeric results) [facility] ([facility]) Total Protein 6.8 GM/DL 6.4-8.2 Normal (applies to non-numeric re sults) [facility] ([facility]) Albumin/Globulin Ratio 1.2 Normal (applies to non-n umeric results) [facility] ([facility]) ID Date Data Source [id number] 03/05/2021 02:15:00 PM EDT [facility] FAX TO Name Value Range Interpretation Code Description Data Tabby rce(s) Supporting Document(s) COVID19 RHEONIX Negative NEGATIVE N [facility] The Rheonix COVID-19 MDx Assay is an end point RT-PCR assayintended for the qualitative detection of nucleic acid [id number]-[id number] virus. Positive results are indicative of thepresence of SARS-CoV-2 RNA; clinical correlation withpatient history and other diagnostic information isnecessary to determine patient infection status. Negativeresults do not preclude SARS-CoV-2 infection and should notbe used as the sole basis for patient management decisions. The Rheonix MDx Assay is only for use under the Food andDrug Administration's Emergency Use Authorization. ID Date Data Source [id number] 11/25/2020 12:00:00 PM EST [facility] Name Value Range Interpretation Code Description Data Tabby rce(s) Supporting Document(s) SARS coronavirus 2 RNA Not Detected [facility] This lab was ordered by [facility] and reported by [facility]. ID Date Data Source [id number] 08/31/2020 05:15:00 PM EDT [facility] ([facility]) Name Value Range Interpretation Code Description Data Tabby rce(s) Supporting Document(s) Calcidiol [Mass/volume] in Serum or Plasma 33.9 ng/mL 30.0- 100.0 Normal (applies to non-numeric results) [facility]) ID Date Data Source [id number] 08/31/2020 05:15:00 PM EDT [facility] ([facility]) Name Value Range Interpretation Code Description Data Tabby rce(s) Supporting Document(s) Hemoglobin A1c 6.0 % Normal (applies to non-numeric r esults) [facility] ([facility]) <content>REFERENCE RANGES:</content><br/ ><content></content>
<content><=5.6% NORMAL</content>
<content>5.7-6.4% SUGGESTS IMPAIRED GLUCOSE METABOLISM/PREDIABETIC</content>
<content>>= 6.5% ABNORMAL</content>
<content></content> Estimated Average Glucose 126 mg/dL 60-110 Above high normal [facility]) ID Date Data Source [id number] 08/31/2020 05:15:00 PM EDT [facility]) Name Value Range Interpretation Code Description Data Tabby rce(s) Supporting Document(s) Prostate specific Ag [Mass/volume] in Serum or Plasma 3.07 ng/mL Normal (applies to non-numeric results) [facility]) The PSA assay is performed on the HubPagesta analyzer by [employer] sandwich chemiluminescent immunoassay and should not be compared interchangeably with other methods. It should not be used alone as a screening test or diagnosis for the presence or absence of malignant disease. Predictions of disease recurrence should not be based solely on values obtained from serial patient serum values. ID Date Data Source [id number] 08/31/2020 05:15:00 PM EDT [facility]) Name Value Range Interpretation Code Description Data Tabby rce(s) Supporting Document(s) Triglycerides Level 128 mg/dL Normal (applies to non-nume shana results) [facility] ([facility]) HDL Cholesterol 72 mg/dL Normal (applies to non-numeric results) [facility] ([facility]) Cholesterol Level 155 mg/dL Normal (applies to non-numeri c results) [facility]) LDL Cholesterol 57 mg/dL Normal (applies to non-numeric results) [facility]) Non-HDL-C 83 mg/dL Normal (applies to non-numeric resul ts) [facility]) Cholesterol Risk Ratio 2.152 Normal (applies to non-n umeric results) [facility] ([facility]) ID Date Data Source [id number] 08/31/2020 05:15:00 PM EDT [facility] ([facility]) Name Value Range Interpretation Code Description Data Tabby rce(s) Supporting Document(s) Glucose, Fasting 82 mg/dL 70-100 Normal (applies to non-numeric results) [facility] ([facility]) Blood Urea Nitrogen 15 mg/dL 7-18 Normal (applies to non-nume shana results) [facility] ([facility]) Glomerular Filtration Rate Laboratory test result Normal (applies to non- numeric results) [facility] ([facility]) <content>Units are mL/min/1.73 m2</content>
<content></content>
<content>Chronic Kidney Disease Staging per NKF:</content>
<content></content>
<content>Stage I & II GFR >=60 Normal to Mildly Decreased</content>
<content>Stage III GFR 30- 59 Moderately Decreased</content>
<content>Stage IV GFR 15-29 Severely Decreased</content>
<content>Stage V GFR <15 Very Little GFR Left</content>
<content>ESRD GFR <15 on TELEPHONE CLERK</content>
<content></content> Sodium Level 139 meq/L 136-145 Normal (applies to non-numeric res ults) [facility] ([facility]) Creatinine For GFR 0.89 mg/dL 0.70-1.30 Normal (applies to non -numeric results) [facility] ([facility]) Potassium Serum 4.8 meq/L 3.5-5.1 Normal (applies to non-numeric results) [facility] ([facility]) Carbon Dioxide Level 28 meq/L 21-32 Normal (applies to non-num dipika results) [facility] ([facility]) Chloride Level 106 meq/L 98-107 Normal (applies to non-numeric r esults) [facility] ([facility]) Calcium Level 10.4 mg/dL 8.8-10.2 Above high normal [facility] NT ([facility]) Anion Gap 5 meq/L 8-16 Below low normal [facility] ( [facility]) Ast/Sgot 14 U/L 7-37 Normal (applies to non-numeric resul ts) [facility] ([facility]) Alkaline Phosphatase 74 U/L 45-117 Normal (applies to non-num dipika results) [facility] ([facility]) Alt/SGPT 29 U/L 12-78 Normal (applies to non-numeric resul ts) [facility] ([facility]) Bilirubin,Total 0.8 mg/dL 0.2-1.0 Normal (applies to non-numeric results) [facility] ([facility]) Total Protein 6.7 GM/DL 6.4-8.2 Normal (applies to non-numeric re sults) [facility] ([facility]) Albumin 3.7 GM/DL 3.2-5.2 Normal (applies to non-numeric resul ts) [facility] ([facility]) Albumin/Globulin Ratio 1.2 Normal (applies to non-n umeric results) [facility] ([facility]) ID Date Data Source [id number] 08/31/2020 05:15:00 PM EDT [facility] ([facility]) Name Value Range Interpretation Code Description Data Tabby rce(s) Supporting Document(s) White Blood Count 7.1 10 4.0-10.0 Normal (applies to non-numeri c results) [facility] ([facility]) Hematocrit 41.4 % 42.0-52.0 Below low normal [facility] ( [facility]) Hemoglobin 13.7 g/dL 13.5-17.5 Normal (applies to non-numeric resul ts) [facility] ([facility]) Red Blood Count 4.28 10 4.30-6.10 Below low normal MED ENT ([facility]) Mean Corpuscular Hemoglobin 32.0 pg 27.0-33.0 Norm al (applies to non-numeric results) [facility] ([facility]) Mean Corpuscular HGB Conc 33.1 g/dL 32.0-36.5 Normal (applies to non-numeric results) [facility] ([facility]) Mean Corpuscular Volume 96.7 fl 80.0-96.0 Above high normal [facility] ([facility]) Platelet Count, Automated 278 10 150-450 Normal (applies to non-numeric results) [facility] ([facility]) Red Cell Distribution Width 12.6 % 11.5-14.5 Norm al (applies to non-numeric results) [facility] ([facility]) Neutrophils % 65.1 % 36.0-66.0 Normal (applies to non-numeric re sults) [facility] ([facility]) [place] % 9.2 % 0.0-5.0 Above high normal [facility] ([facility]) Eos % 7.5 % 0.0-3.0 Above high normal [facility] ([facility]) Lymph % 17.6 % 24.0-44.0 Below low normal [facility] ( [facility]) Baso % 0.3 % 0.0-1.0 Normal (applies to non-numeric resul ts) [facility] ([facility]) Immature Granulocyte % 0.3 % 0-3.0 Normal (applies to non-n umeric results) [facility] ([facility]) Nucleated Red Blood Cell % 0.0 % 0-0 Normal (applies to n on-numeric results) [facility] ([facility]) Neutrophils # 4.6 10 1.5-8.5 Normal (applies to non-numeric re sults) [facility] ([facility]) Lymph # 1.3 10 1.5-5.0 Below low normal [facility] ( [facility]) Eos # 0.5 10 0.0-0.5 Normal (applies to non-numeric resul ts) [facility] ([facility]) Baso # 0.0 10 0.0-0.2 Normal (applies to non-numeric resul ts) [facility] ([facility]) [place] # 0.7 10 0.0-0.8 Normal (applies to non-numeric resul ts) [facility] ([facility]) ID Date Data Source [id number] 08/21/2020 12:00:00 PM EDT [facility] ([facility]) Name Value Range Interpretation Code Description Data Tabby rce(s) Supporting Document(s) Coronavirus 2019 Nasopharygeal Laboratory test result [facility]) This nucleic acid amplification test was developed and its performance characteristics determined by [facility]. Nucleic acid amplification tests include PCR and TMA. This test has not been FDA cleared or approved. This test has been authorized by FDA under an Emergency Use Authorization (EUA). This test is only authorized for the duration of time the declaration that circumstances exist justifying the authorization of the emergency use of in vitro diagnostic tests for detection of SARS-CoV-2 virus and/or diagnosis of COVID-19 infection under section 564(b)(1) of the Act, 21 U.S.C. 360bbb-3 (b) (1), unless the authorization is terminated or revoked sooner. When diagnostic testing is negative, the possibility of a false negative result should be considered in the context of a patient's recent exposures and the presence of clinical signs and symptoms consistent with COVID-19. An individual without symptoms of COVID-19 and who is not shedding SARS-CoV-2 virus would expect to have a negative (not detected) result in this assay. Performed at: [facility] [address] [id number] Internal Corrosion Specialist: Olivia Samson MD, Phone: [phone] Not Detected ID Date Data Source [id number] 08/21/2020 12:00:00 PM EDT [facility] Name Value Range Interpretation Code Description Data Tabby rce(s) Supporting Document(s) SARS coronavirus 2 RNA [facility] This lab was ordered by [facility] and reported by [facility]. Procedure Social History Code Duration Value Status Description Data Source(s ) Smoking 09/09/2021 12:00:00 AM EDT Never Smoked A Pipe complet ed Never Smoked A Pipe [facility] ([facility], ) Smoking 07/14/2021 02:55:48 PM EDT Never smoked tobacco (zeei jacob) completed Never smoked tobacco (finding) EDUARDO (Adan Rdz MD [facility]) Smoking 06/01/2021 12:00:00 AM EDT Patient has never smoked co mpleted Patient has never smoked [facility] ([facility]) Alcohol intake 05/20/2021 12:00:00 AM EDT Current drinker of al cohol (finding) completed Current drinker of alcohol (finding) [facility] Smoking 11/30/2020 12:00:00 AM EST Never Smoker completed Never S moker eCW1 ([facility]) Smoking 11/30/2020 12:00:00 AM EST Never Smoker completed Never S moker eCW1 ([facility]) Smoking 10/22/2020 12:00:00 AM EST Never Smoker completed Never S moker eCW1 ([facility]) Smoking 10/22/2020 12:00:00 AM EST Never Smoker completed Never S moker eCW1 ([facility]) Smoking 10/22/2020 12:00:00 AM EST Never Smoker completed Never S moker eCW1 ([facility]) Smoking 10/19/2020 12:00:00 AM EST Never Smoker completed Never S moker eCW1 ([facility]) Smoking 08/26/2020 12:00:00 AM EDT Never Smoker completed Never S moker eCW1 ([facility]) Vital Signs ID Date Data Source UNK Name Value Range Interpretation Code Description Data Source(s) Body height 70 [in_i] 70 [in_i] [facility] ([facility], ) 5'10" Body weight 193.00 [lb_av] 193.00 [lb_av] [facility] T ([facility], ) Body mass index (BMI) [Ratio] 27.7 kg/m2 27.7 k g/m2 [facility] ([facility]) [place] body weight 166 [lb_av] 166 [lb_av] [facility] T ([facility]) Body weight 87.545 kg 87.545 kg [facility] ([facility]) Body surface area Derived from formula 2.06 m2 2.06 m2 [facility] ([facility]) Systolic blood pressure 112 mm[Hg] 112 mm[Hg] M [facility] ([facility], ) Diastolic blood pressure 62 mm[Hg] 62 mm[Hg] [facility] Heart rate 77 /min 77 /min [facility] ([facility], ) Oxygen saturation in Arterial blood by Pulse oximetry 95 % 95 % [facility] ([facility], ) Body height 70 [in_i] 70 [in_i] [facility], ) 5'10" Diastolic blood pressure 78 mm[Hg] 78 mm[Hg] [facility] ([facility]) Systolic blood pressure 138 mm[Hg] 138 mm[Hg] [facility] ([facility]) Body weight 195.00 [lb_av] 195.00 [lb_av] [facility] T ([facility]) Body height 69 [in_i] 69 [in_i] [facility] ([facility]) 5'9" Body mass index (BMI) [Ratio] 28.8 kg/m2 28.8 k g/m2 [facility]) Heart rate 82 /min 82 /min [facility] ([facility]) Body temperature 98.2 [degF] 98.2 [degF] [facility] ([facility]) Oxygen saturation in Arterial blood by Pulse oximetry 97 % 97 % [facility] ([facility]) [place] body weight 160 [lb_av] 160 [lb_av] [facility] T ([facility]) Respiratory rate 20 /min 20 /min [facility] ( [facility]) Systolic blood pressure 120 mm[Hg] 120 mm[Hg] [facility] ([facility], ) Oxygen saturation in Arterial blood by Pulse oximetry 98 % 98 % [facility], ) Diastolic blood pressure 68 mm[Hg] 68 mm[Hg] [facility], ) Body height 70 [in_i] 70 [in_i] [facility] ([facility], ) 5'10" Heart rate 68 /min 68 /min [facility] ([facility], ) Body weight 191.00 [lb_av] 191.00 [lb_av] [facility] T ([facility]) Body mass index (BMI) [Ratio] 27.4 kg/m2 27.4 k g/m2 [facility] ([facility]) [place] body weight 166 [lb_av] 166 [lb_av] [facility] T ([facility]) Body weight 86.638 kg 86.638 kg [facility] Body surface area Derived from formula 2.05 m2 2.05 m2 [facility] ([facility]) Body weight 189.00 [lb_av] 189.00 [lb_av] [facility] T ([facility]) Heart rate 87 /min 87 /min [facility] ([facility]) Respiratory rate 18 /min 18 /min [facility] ( [facility]) Body temperature 97.0 [degF] 97.0 [degF] [facility] ([facility]) Diastolic blood pressure 74 mm[Hg] 74 mm[Hg] [facility] ([facility]) Body height 69 [in_i] 69 [in_i] [facility] ([facility]) 5'9" Body mass index (BMI) [Ratio] 27.9 kg/m2 27.9 k g/m2 [facility] ([facility]) Systolic blood pressure 122 mm[Hg] 122 mm[Hg] [facility] ([facility]) Oxygen saturation in Arterial blood by Pulse oximetry 97.0 % 97.0 % [facility] ([facility]) [place] body weight 160 [lb_av] 160 [lb_av] [facility] T ([facility]) Systolic blood pressure 110 mm[Hg] 110 mm[Hg] [facility] Diastolic blood pressure 70 mm[Hg] 70 mm[Hg] [facility] Heart rate 63 /min 63 /min [facility] Body height 175.3 cm 175.3 cm [facility] Body weight 87.998 kg 87.998 kg [facility] Body mass index (BMI) [Ratio] 28.65 kg/m2 28.65 kg/m2 [facility] Oxygen saturation in Arterial blood by Pulse oximetry 98 % 98 % [facility] Heart rate 72 /min 72 /min [facility] ([facility]) Respiratory rate 18 /min 18 /min [facility] ( [facility]) Oxygen saturation in Arterial blood by Pulse oximetry 95 % 95 % [facility] ([facility]) [place] body weight 160 [lb_av] 160 [lb_av] [facility] T ([facility]) Body temperature 97.9 [degF] 97.9 [degF] [facility] ([facility]) Systolic blood pressure 126 mm[Hg] 126 mm[Hg] M [facility] ([facility]) Diastolic blood pressure 72 mm[Hg] 72 mm[Hg] [facility] ([facility]) Body height 69 [in_i] 69 [in_i] [facility] ([facility]) 5'9" Body weight 194.00 [lb_av] 194.00 [lb_av] [facility] T ([facility]) Body mass index (BMI) [Ratio] 28.6 kg/m2 28.6 k g/m2 [facility] ([facility]) Body temperature 96.9 [degF] 96.9 [degF] [facility] ([facility]) Body weight 182.00 [lb_av] 182.00 [lb_av] [facility] T ([facility]) Body mass index (BMI) [Ratio] 27.3 kg/m2 27.3 k g/m2 [facility] ([facility]) Body height 68.5 [in_i] 68.5 [in_i] [facility] ([facility]) 5'8.50" Diastolic blood pressure 78 mm[Hg] 78 mm[Hg] [facility] ([facility]) Systolic blood pressure 120 mm[Hg] 120 mm[Hg] M [facility] ([facility]) Respiratory rate 14 /min 14 /min [facility] ( [facility]) Body height 69 [in_i] 69 [in_i] [facility] ([facility]) 5'9" Body weight 187.25 [lb_av] 187.25 [lb_av] [facility] T ([facility]) Body mass index (BMI) [Ratio] 27.6 kg/m2 27.6 k g/m2 [facility] ([facility]) Heart rate 62 /min 62 /min [facility] ([facility]) Body temperature 97.8 [degF] 97.8 [degF] [facility] ([facility]) Oxygen saturation in Arterial blood by Pulse oximetry 98 % 98 % [facility] ([facility]) [place] body weight 160 [lb_av] 160 [lb_av] [facility] T ([facility]) Respiratory rate 14 /min 14 /min [facility] ( [facility]) Body temperature 97.0 [degF] 97.0 [degF] [facility] ([facility]) Heart rate 56 /min 56 /min [facility] ([facility]) Oxygen saturation in Arterial blood by Pulse oximetry 96 % 96 % [facility] ([facility]) [place] body weight 160 [lb_av] 160 [lb_av] [facility] T ([facility]) Systolic blood pressure 140 mm[Hg] 140 mm[Hg] M [facility] ([facility]) Diastolic blood pressure 78 mm[Hg] 78 mm[Hg] [facility] ([facility]) Body height 69 [in_i] 69 [in_i] [facility] ([facility]) 5'9" Body weight 192.25 [lb_av] 192.25 [lb_av] [facility] T ([facility]) Body mass index (BMI) [Ratio] 28.4 kg/m2 28.4 k g/m2 [facility] ([facility]) Body mass index (BMI) [Ratio] 28.5 kg/m2 28.5 k g/m2 [facility] ([facility]) Body temperature 96.9 [degF] 96.9 [degF] [facility] ([facility]) Body height 68.5 [in_i] 68.5 [in_i] [facility] ([facility]) 5'8.50" Body weight 190.50 [lb_av] 190.50 [lb_av] [facility] T ([facility]) Systolic blood pressure 108 mm[Hg] 108 mm[Hg] [facility] Diastolic blood pressure 70 mm[Hg] 70 mm[Hg] [facility] Heart rate 60 /min 60 /min [facility] Body weight 87.998 kg 87.998 kg [facility] Body mass index (BMI) [Ratio] 28.65 kg/m2 28.65 kg/m2 [facility] Oxygen saturation in Arterial blood by Pulse oximetry 98 % 98 % [facility] Systolic blood pressure 132 mm[Hg] 132 mm[Hg] M [facility] ([facility]) Diastolic blood pressure 70 mm[Hg] 70 mm[Hg] [facility] ([facility]) Body height 69 [in_i] 69 [in_i] [facility] ([facility]) 5'9" Respiratory rate 18 /min 18 /min [facility] ( [facility]) Body weight 189.12 [lb_av] 189.12 [lb_av] [facility] T ([facility]) Body mass index (BMI) [Ratio] 27.9 kg/m2 27.9 k g/m2 [facility] ([facility]) Body temperature 98.4 [degF] 98.4 [degF] [facility] ([facility]) Heart rate 74 /min 74 /min [facility] ([facility]) Oxygen saturation in Arterial blood by Pulse oximetry 94 % 94 % [facility] ([facility]) [place] body weight 160 [lb_av] 160 [lb_av] [facility] T ([facility]) Body mass index (BMI) [Ratio] 27.8 kg/m2 27.8 k g/m2 [facility] ([facility]) Body temperature 98.0 [degF] 98.0 [degF] [facility] ([facility]) Oxygen saturation in Arterial blood by Pulse oximetry 98 % 98 % [facility]) [place] body weight 160 [lb_av] 160 [lb_av] [facility] T ([facility]) Heart rate 75 /min 75 /min [facility] ([facility]) Respiratory rate 18 /min 18 /min [facility] ( [facility]) Systolic blood pressure 140 mm[Hg] 140 mm[Hg] M [facility] ([facility]) Diastolic blood pressure 80 mm[Hg] 80 mm[Hg] [facility] ([facility]) Body height 69 [in_i] 69 [in_i] [facility] ([facility]) 5'9" Body weight 188.25 [lb_av] 188.25 [lb_av] MED[facility] T ([facility]) Body weight 188.8 [lb_av] 188.8 [lb_av] eCW1 ([facility]) Body height 59 [in_i] 59 [in_i] eCW1 ([facility]) Body mass index (BMI) [Ratio] 38.13 kg/m2 38.13 kg/m2 eCW1 ([facility]) Heart rate 86 /min 86 /min eCW1 ([facility]) Respiratory rate 18 /min 18 /min eCW1 ([facility]) Body temperature 96.7 [degF] 96.7 [degF] eCW1 ( [facility]) Systolic blood pressure 117 mm[Hg] 117 mm[Hg] e CW1 ([facility]) Diastolic blood pressure 70 mm[Hg] 70 mm[Hg] eCW1 ([facility]) Body height 59 [in_i] 59 [in_i] eCW1 ([facility]) Body mass index (BMI) [Ratio] 38.37 kg/m2 38.37 kg/m2 eCW1 ([facility]) Body weight 190 [lb_av] 190 [lb_av] eCW1 ([facility]) Body temperature 97.6 [degF] 97.6 [degF] eCW1 ( [facility]) Respiratory rate 18 /min 18 /min eCW1 ([facility]) Heart rate 77 /min 77 /min eCW1 ([facility]) Systolic blood pressure 109 mm[Hg] 109 mm[Hg] e CW1 ([facility]) Diastolic blood pressure 61 mm[Hg] 61 mm[Hg] eCW1 ([facility]) Body mass index (BMI) [Ratio] 38.37 kg/m2 38.37 kg/m2 eCW1 ([facility]) Body height 59 [in_i] 59 [in_i] eCW1 ([facility]) Heart rate 75 /min 75 /min eCW1 ([facility]) Respiratory rate 18 /min 18 /min eCW1 ([facility]) Body temperature 98.4 [degF] 98.4 [degF] eCW1 ( [facility]) Systolic blood pressure 117 mm[Hg] 117 mm[Hg] e CW1 ([facility]) Body weight 190 [lb_av] 190 [lb_av] eCW1 ([facility]) Diastolic blood pressure 73 mm[Hg] 73 mm[Hg] eCW1 ([facility]) Body weight 194.2 [lb_av] 194.2 [lb_av] eCW1 ([facility]) Body height 59 [in_i] 59 [in_i] eCW1 ([facility]) Body mass index (BMI) [Ratio] 39.22 kg/m2 39.22 kg/m2 eCW1 ([facility]) Heart rate 71 /min 71 /min eCW1 ([facility]) Respiratory rate 18 /min 18 /min eCW1 ([facility]) Body temperature 98.1 [degF] 98.1 [degF] eCW1 ( [facility]) Systolic blood pressure 107 mm[Hg] 107 mm[Hg] e CW1 ([facility]) Diastolic blood pressure 69 mm[Hg] 69 mm[Hg] eCW1 ([facility]) Diastolic blood pressure 76 mm[Hg] 76 mm[Hg] [facility] ([facility]) Oxygen saturation in Arterial blood by Pulse oximetry 97 % 97 % [facility]) Body mass index (BMI) [Ratio] 29.1 kg/m2 29.1 k g/m2 MEDJ[facility] MIGUEL ([facility]) Body height 69 [in_i] 69 [in_i] [facility] ([facility]) 5'9" Systolic blood pressure 136 mm[Hg] 136 mm[Hg] M [facility] ([facility]) Body temperature 97.8 [degF] 97.8 [degF] [facility] ([facility]) [place] body weight 160 [lb_av] 160 [lb_av] MEDEN T ([facility]) Body weight 197.38 [lb_av] 197.38 [lb_av] MEDEN T ([facility]) Heart rate 72 /min 72 /min [facility] ([facility]) Respiratory rate 18 /min 18 /min [facility] ( [facility]) Body weight 194.6 [lb_av] 194.6 [lb_av] eCW1 ([facility]) Body height 59 [in_i] 59 [in_i] eCW1 ([facility]) Body mass index (BMI) [Ratio] 39.30 kg/m2 39.30 kg/m2 eCW1 ([facility]) Heart rate 76 /min 76 /min eCW1 ([facility]) Respiratory rate 18 /min 18 /min eCW1 ([facility]) Body temperature 98.5 [degF] 98.5 [degF] eCW1 ( [facility]) Systolic blood pressure 106 mm[Hg] 106 mm[Hg] e CW1 ([facility]) Diastolic blood pressure 61 mm[Hg] 61 mm[Hg] eCW1 ([facility]) Patient Treatment Plan of Care Planned Activity Planned Date Details Description Data Source (s) ezetimibe 10 MG Oral Tablet 05/20/2021 12:00:00 AM EDT [facility] clopidogrel 75 MG Oral Tablet 10/30/2019 12:00:00 AM EST [facility] meloxicam 7.5 MG Oral Tablet [facility] fluticasone (FLONASE) 50 MCG/ACT nasal spray [facility] Fexofenadine hydrochloride 180 MG Oral Tablet [facility] Calcium Carbonate 500 MG Chewable Tablet [facility] Melatonin 1 MG Oral Capsule [facility] Acetaminophen 500 MG Oral Tablet [facility]
[2021-10-14 20:05] LABS: BLOOD UREA NITROGEN 16 MG/DL (7-18); CALCIUM LEVEL 10.9 MG/DL (8.8-10.2); CARBON DIOXIDE LEVEL 30 MEQ/L (21-32); CHLORIDE LEVEL 104 MEQ/L (98-107); CREATININE FOR GFR 1.02 MG/DL (0.70-1.30); GLOMERULAR FILTRATION RATE > 60.0 (>42); GLUCOSE, FASTING 90 MG/DL (70-100); SODIUM LEVEL 138 MEQ/L (136-145)
--- OUTSIDE RECORDS SUMMARY | 2021-10-15 00:04 | CCD ---
Author Author [facility] Organization [facility] Address Unknown Phone Unavailable Care Team Providers Care Office Clerk Assistant Name Role Phone Arnel Olivares MD Unavailable [...] Unavailable Avel, Daryl PA Unavailable Unavailable Avel, Darly PA Unavailable Unavailable Avel, Daryl PA Unavailable [...] is protected by Article 27-F of the [facility] Public Health law. If you continue you may have access to information: Regarding HIV / AIDS; Provided by facilities licensed or operated by the [facility] Office of Mental Health; or Provided by the [facility] Office for People With Developmental Disabilities. If such information is present, then the following [facility] mandated warning applies: This information has [...] law may result in a fine or residential sentence or both. A general authorization for the release of medical or other information is NOT sufficient authorization for further disc losure. Family History Family Member Name Family Member Gender Family Member Status Date o f Status Description Data Source(s) Unknown Unknown Problem [facility] ([facility]) Encounters Encounter Providers Location Date Indications Data Source(s ) Outpatient Attender: CLARY Verduzco/Harinder/Raffi/Digna dl 09/09/2021 03:00:00 PM EDT [facility] ([facility] Outpatient Attender: James COBIAN [facility] 09/01/2021 01:10:00 PM EDT MED[facility] ([facility]) Outpatient Attender: CLARY Verduzco/Harinder/Raffi/Rein dl 08/05/2021 01:00:00 PM EDT [facility] ([facility] OFFICE OUTPATIENT VISIT 15 MINUTES Attender: Daryl Lovell MD Phys ical Therapy 06/02/2021 01:45:00 PM EDT [facility] ([facility]) Office Visit Attender: James COBIAN [facility] 06/01/2021 04:00:00 PM EDT MED[facility] ([facility]) Outpatient Attender: Lupe CORBETT-SJPSukhdevARIA 07/2021 03:06:22 PM EDT - 05/20/2021 04:11:41 PM EDT [facility] Outpatient Attender: Daryl COBIAN Family [facility] 05/20/2021 01:40:00 PM EDT MED[facility] ([facility]) Outpatient Attender: Daryl Lovell MD Physical Therapy 04/15/2021 0 1:45:00 PM EDT [facility] ([facility]) Outpatient Attender: James COBIAN [facility] 04/13/2021 03:30:00 PM EDT MED[facility] ([facility]) Outpatient Attender: Liseth COBIAN Physical Therapy 01:30:00 PM EDT [facility] ([facility]) Outpatient Attender: Mayo Olivares MD 03/09/2021 02:28:00 PM EDT [facility] Outpatient Attender: Mayo Olivares MD ER-LAB-PNP 03/04/2021 10:58:00 AM [facility] Outpatient Attender: James COBIAN [facility] 03/02/2021 04:00:00 PM EDT MED[facility] ([facility]) Outpatient Attender: Daryl Lovell MD Physical Therapy 03/02/2021 0 1:30:00 PM EDT MED[facility] ([facility]) Outpatient ARIC-SJRachelARIA 02/07/2021 12:00:00 AM EDT [facility] Outpatient Attender: Daryl Lovell MD Physical Therapy 02/03/2021 1 2:45:00 PM EDT MED[facility] ([facility]) Outpatient Attender: Lupe COBIAN SJP.ARIA-SJP.ARIA 03:06:06 PM EDT - 02/02/2021 04:22:28 PM EDT [facility] Outpatient Attender: James COBIAN Family [facility] 01/18/2021 01:30:00 PM EST MED[facility] ([facility]) Outpatient Attender: James COBIAN [facility] 12/01/2020 03:00:00 PM EST MED[facility] ([facility]) Outpatient [address] [id number] 11/30/2020 12:00:00 AM EST eCW1 ([facility]) Unknown [address] [id number] 11/29/2020 12:00:00 AM EST eCW1 ([facility]) Outpatient [address] [id number] 10/22/2020 12:00:00 AM EST eCW1 ([facility]) Unknown [address] [id number] 10/21/2020 12:00:00 AM EST eCW1 ([facility]) Outpatient [address] [id number] 10/19/2020 12:00:00 AM EST eCW1 ([facility]) Outpatient [address] [id number] 09/21/2020 12:00:00 AM EST eCW1 ([facility]) Outpatient Attender: James COBIAN [facility] 08/31/2020 03:30:00 PM EDT MEDENT ([facility]) (PN Proc 45) Pain Procedure 45 [address] [place] [address] 08/26/2020 12:00:00 AM EDT eCW1 ([facility]) Immunizations Vaccine Date Status Description Data Source(s) Pneumococcal conjugate PCV 13 06/01/2021 08:15:00 PM EDT completed MEDENT ([facility]) Pneumococcal conjugate PCV 13 06/01/2021 04:39:00 PM EDT completed [facility] ([facility]) COVID-19 VACCINE Moderna 02/16/2021 12:00:00 AM EDT completed [place] Vaccine Series Complete: YESThis Data wa s Submitted to [facility] [employer]. COVID-19 VACCINE Moderna 01/19/2021 12:00:00 AM EST completed [place] Vaccine Series Complete: NOThis Data was Submitted to [facility] [employer]. New in 2011. IIV4 08/31/2020 04:05:00 PM EDT completed MED[facility] ([facility]) Medications Medication Brand Name Start Date Product Form Dose Route Admi nistrative Instructions Pharmacy Instructions Status Indications Reaction Description Data Source(s) Citalopram 20 MG Oral Tablet Citalopram Hydrobromide 09/01/2021 12:00:00 AM EDT completed MED[facility] ([facility]) Citalopram 10 MG Oral Tablet Citalopram Hydrobromide 09/01/2021 12:00:00 AM EDT active MEDENT ( [facility]) 24 HR Bupropion Hydrochloride 150 MG Extended Release Oral Tablet [Wellbutrin] Wellbutrin XL 09/01/2021 12:00:00 AM EDT ORAL active MED[facility] ([facility]) Trazodone Hydrochloride 50 MG Oral Tablet Trazodone HCL 08/28/2021 12:00:00 AM EDT active [facility] ([facility]) Vitamin D3 2,000Unit 08/16/2021 12:00:00 AM EDT active MEDENT ([facility]) True Metrix Blood Glucosetest Strips 07/01/2021 12:00:00 AM EDT active [facility] ([facility]) Trueplus Lancets 33G 07/01/2021 12:00:00 AM EDT active MED[facility] ([facility]) Citalopram 10 MG Oral Tablet Citalopram Hydrobromide 06/23/2021 12:00:00 AM EDT completed MED[facility] ([facility]) atorvastatin 40 MG Oral Tablet Atorvastatin Calcium 06/23/2021 1 2:00:00 AM EDT active MED[facility] ( [facility]) Acetaminophen 300 MG / Codeine Phosphate 30 MG Oral Tablet [Tylenol with Codeine] Tylenol With Codeine #3 06/07/2021 12:00:00 AM EDT ORAL active MED[facility] ([facility]) carbamide peroxide 65 MG/ML Otic Solution [Debrox] Debrox 06/01/2021 12:00:00 AM EDT AURICULAR active MED[facility] ([facility]) Citalopram 20 MG Oral Tablet Citalopram Hydrobromide 06/01/2021 12:00:00 AM EDT completed MED[facility] ([facility]) Shingrix Shingrix 06/01/2021 12:00:00 AM EDT activ e MEDENT ([facility]) Prevagen 06/01/2021 12:00:00 AM EDT ORAL active MED[facility] ([facility]) Prazosin 2 MG Oral Capsule Prazosin HCL 06/01/2021 12:00:00 AM EDT active MED[facility] ([facility]) ezetimibe 10 MG Oral Tablet ezetimibe (ZETIA) 10 MG ta blet ezetimibe (ZETIA) 10 MG tablet 05/20/2021 12:00:00 AM EDT 10 mg Oral act steve Mixed hyperlipidemia Take 1 tablet (10 mg total) by mouth magda ly [facility] Mixed hyperlipidemia clopidogrel 75 MG Oral Tablet Clopidogrel Bisulfate 04/15/2021 1 2:00:00 AM EDT completed MED[facility] ([facility]) Vitamin D3 2,000Unit 04/13/2021 12:00:00 AM EDT completed MED[facility] ([facility]) Apap Device With Other Neccessary Supplies. 04/13/2021 12:00 :00 AM EDT completed MED[facility] ([facility]) Blood Pressure Monitor Digital/Auto-Inflation 2020 12:00:00 AM EDT active MED[facility] ([facility]) [facility] Home Sleep Study 03/02/2021 12:00:00 AM EDT active MED[facility] ([facility]) Diclofenac Sodium 0.01 MG/MG Topical Gel [Voltaren] Voltaren 01/18/2021 12:00:00 AM EST active MED[facility] ([facility]) Cane/Aluminum/Adjustable/Mens Handle 01/18/2021 12:00:00 AM EST active [facility] ([facility]) Blood Glucose Monitoring System 12/01/2020 12:00:00 AM EST completed [facility] ([facility]) Thiamine 100 MG Oral Tablet GNP Vitamin B-1 11/03/2020 12:00:00 AM EST active MED[facility] ([facility]) Vitamin B-1 100MG 09/06/2020 12:00:00 AM EDT completed [facility] ([facility]) clopidogrel 75 MG Oral Tablet clopidogrel (PLAVIX) 75 MG tablet clopidogrel (PLAVIX) 75 MG tablet 10/30/2019 12:00:00 AM EST 75 mg Oral aborted Take 1 tablet (75 mg total) by mouth daily [facility] Acetaminophen 500 MG Oral Tablet acetaminophen (TYLENO L) 500 MG tablet acetaminophen (TYLENOL) 500 MG tablet Oral aborted Take 1-2 tablets by mouth every 6 (six) hours as needed for pain [facility] Melatonin 1 MG Oral Capsule Melatonin 1 MG CAPS Melatonin 1 MG CAPS Oral aborted Take by mouth [facility] meloxicam 7.5 MG Oral Tablet meloxicam (MOBIC) 7.5 MG tablet meloxicam (MOBIC) 7.5 MG tablet 15 mg Oral aborted Ta ke 15 mg by mouth daily as needed for pain [facility] Fexofenadine hydrochloride 180 MG Oral T ablet fexofenadine (NANCY) 180 MG tablet fexofenadine (NANCY) 180 MG tablet 180 mg Oral aborted Take 180 mg by mouth daily as needed [facility] fluticasone (FLONASE) 50 MCG/ACT nasal spray [id number] 1 {spray} Nasal aborted 1 spray into each nostril da thony as needed for rhinitis [facility] Calcium Carbonate 500 MG Chewable Tablet calcium carbonate (TUMS) 500 MG chewable tablet calcium carbonate (TUMS) 500 MG chewable tablet 1 {tbl} Oral aborted Chew 1 tablet daily as needed for heartburn [facility] Insurance Providers Payer name Policy type / Coverage type Policy ID Covered alliance party ID Covered alliance party's relationship to milan Policy [place] Plan Information MEDICARE [id number] A [employer] Commercial [id number] Self [id number] [employer] Commercial [id number] Self [id number] [employer] Commercial [id number] Self [id number] [employer] Commercial [id number] 2.16.840.1.837086.3.227.99.806.1723.0 Self [id number] Blue [facility] Part B [id number] 2.16.840.1.774254.3.227.99.8646.74704.0 Self [id number] [employer] Commercial [id number] 2.16.840.1.630901.3.227.99.806.1723.0 Self [id number] [facility] [id number] 2.16.840.1.455435.3.227.99.8646.49810.0 Self [id number] [employer] Commercial [id number] 2.16.840.1.128614.3.227.99.806.1723.0 Self [id number] [facility] [id number] 2.16.840.1.094795.3.227.99.8646.67584.0 Self [id number] [employer] Commercial [id number] 2.16.840.1.643843.3.227.99.806.1723.0 Self [id number] [employer] Commercial [id number] Self [id number] [facility] Part B [id number] 2.16.840.1.950485.3.227.99.8646.04455.0 Self [id number] [employer] Commercial [id number] 2.16.840.1.309104.3.227.99.806.1723.0 Self [id number] [employer] Commercial [id number] 2.16840.1.345780.3.227.99.806.1723.0 Self [id number] [facility] Part B 2.16840.1.008825.3 .227.99.8646.01289.0 Self [employer] Commercial [id number] 2.16.840.1.125491.3.227.99.806.1723.0 Self [id number] [employer] Commercial [id number] 2.16.840.1.297160.3.227.99.806.1723.0 Self [id number] [facility] Part B [id number] 2.16840.1.625360.3.227.99.8646.04051.0 Self [id number] MEDICARE [id number] SP [id number] A [employer] Medicare Commercial [id number] 2.16840.1.012572.3.227.99.8646.85545.0 Self [id number] [facility] Medicare Commercial [id number] 2.16840.1.666822.3.227.99.8646.12404.0 Self [id number] [employer] Medicare Commercial [id number] 2.16.840.1.852004.3.227.99.8646.79851.0 Self [id number] [employer] Medicare Commercial 2.0.1.1138 83.3.227.99.8646.87887.0 Self [employer] Medicare Commercial [id number] 2.0.1.777183.3.227.99.8646.64626.0 Self [id number] [employer] Medicare Commercial [id number] ..1.377624.3.227.99.8646.86737.0 Self [id number] MEDICARE [id number] SP [id number] A MEDICARE COMPLETE [id number] SP [id number] [facility] [id number] SP [id number] [facility] FEDERAL EMPLOYEE PROGRAM [id number] SP [id number] [facility] FEDERAL EMPLOYEE PROGRAM [id number] SP [id number] [facility] FEDERAL EMPLOYEE PROGRAM [id number] SP [id number] [facility] FEDERAL [id number] SP [id number] Aetna Supplemental Policy [id number] Self [id number] AETNA MEDICARE [id number] HUMANA MEDICARE [id number] [phone] [phone] HUMANA MEDICARE [id number] Patricia [id number] [facility] Commercial [id number] ..[id number].0 Self [id number] Medicare [place] Primary [id number] ..[id number]3.0 Self [id number] [facility] Medigap Part B [id number] ..1.413221.3.227.99.8646.13881.0 Self [id number] Medicare [place]/[facility] Medicare Primary [id number] ..[id number]13.0 Self [id number] [facility] Commercial [id number] ..1.316118.3.227.99.806.1723.0 Self [id number] Medicare [place] Medicare Primary [id number] 2.16.840.1.340602.3.227.99.806.1723.0 Self 25 [id number] Medicare [place] Medicare Primary [id number] 2.16.840.1.530090.3.227.99.806.1723.0 Self [id number] Blue Shield Federal Medigap Part B [id number] 2.16840.1.089135.3.227.99.8646.05583.0 Self [id number] Medicare [place]/NGS Medicare Primary [id number] 2.16840.1.902242.3.227.99.8646.55510.0 Self [id number] [facility] Medicare Solutions Medigap Part B [id number] 2.0.1.087617.3.227.99.806.1723.0 Self [id number] [facility] Medicare Solutions Medigap Part B [id number] 2.0.1.135189.3.227.99.806.1723.0 Self [id number] [facility] Federal Medigap Part B [id number] 2.0.1.179736.3.227.99.8646.01524.0 Self [id number] Medicare [place]/NGS Medicare Primary [id number] 2.840.1.450386.3.227.99.8646.53291.0 Self [id number] MEDICARE [id number] A Blue Shield Federal Medigap Part B [id number] 2.840.1.904164.3.227.99.8646.48073.0 Self [id number] Medicare [place]/NGS Medicare Primary [id number] 2.16840.1.516249.3.227.99.8646.65920.0 Self [id number] Blue Shield Federal Medigap Part B [id number] 2.840.1.838149.3.227.99.8646.80200.0 Self [id number] Medicare [place]/NGS Medicare Primary [id number] 2.840.1.815820.3.227.99.8646.09728.0 Self [id number] MEDICARE C [id number] S [id number] A [employer] BCBS FEDERAL [id number] SP [id number] [employer] Commercial 2.840.1.314646.3.227 .99.806.1723.0 Self [facility] Medicare Solutions Commercial 2.0.1.848970.3.227. 99.806.1723.0 Self BCBS Federal Plan Commercial [id number] Self BC/BS U/W - Federal Plans Commercial [id number] Self Medicare Natl Gov't Servi Medicare Primary [id number] Self MEDICARE [id number] SP [id number] A SELF PAY ONLY UNAVAILABLE UNAV AILABLE HUMANA GOLD [id number] SP [id number] SELF PAY UNAVAILABLE SP UNAVAILA BLE Humana Care Plan Other 0 [id number] Self 0 HUMANA GOLD [id number] SP [id number] HUMANA GOLD [id number] SP [id number] [employer] [id number] S [id number] HUMANA PPO [id number] SP [id number] Humana Care Plan Other 0 [id number] Self 0 AETNA MEDICARE [id number] SP [id number] HUMANA GOLD [id number] SP [id number] HUMANA GOLD O [id number] S [id number] Humana Care Plan Other 0 [id number] Self 0 HUMANA PPO [id number] SP [id number] AETNA MEDICARE [id number] SP [id number] AETNA MEDICARE O [id number] S [id number] Medicare [facility] Medicare Primary [id number] Self [id number] Aetna Commercial [id number] Self [id number] AETNA MEDICARE [id number] SP [id number] Aetna Medigap Part B [id number] 2.0.1.158933.3.227.99.806.1723 .0 Self [id number] Medicare [place] Medicare Primary [id number]06.1723.0 Self 25 [id number] AETNA HEALTH SEIU JENNIFER O [id number] S [id number] MEDICARE C [id number] S [id number] A AETNA HEALTH CARE O [id number] S [id number] AETNA HEALTH CARE O UNAVAILABLE [id number] S UNAVAILABLE BS [facility] [id number] S [id number] Aetna Medigap Part B [id number] 2.0.1.501067.3.227.99.806.1723 .0 Self [id number] Medicare [place] Medicare Primary [id number] 2.0.1.192689.3.227.99.806.1723.0 Self 25 [id number] Aetna Medigap Part B [id number] 2.0.1.093002.3.227.99.806.1723 .0 Self [id number] Medicare [place] Medicare Primary [id number] 2.0.1.962257.3.227.99.806.1723.0 Self 25 [id number] BCBS OF [facility] [id number] S [id number] [employer] MEDICARE DIVISION [id number] S [id number] MEDICARE [place] [id number] S [id number] Aetna Medigap Part B [id number] 2.0.1.193677.3.227.99.806.1723 .0 Self [id number] Medicare [place] Medicare Primary [id number] 2.0.1.914090.3.227.99.806.1723.0 Self 25 [id number] [facility] Commercial [id number] 2.16.840.1.939535.3.227.99.806.1723.0 Self [id number] Medicare [place] Medicare Primary [id number] 2.16.840.1.124814.3.227.99.806.1723.0 Self 25 [id number] [facility] Commercial [id number] Self [id number] Medicare [place] Medicare Primary [id number] Self 25 [id number] Problems, Conditions, and Diagnoses Code Display Name Description Problem Type Effective Dates Data Source(s) R73.03 Prediabetes Prediabetes Diagnosis 05/20/2021 03:06:22 PM EDT [facility] Z01.818 Encounter for other preprocedural examin ation Encounter for other preprocedural examin Diagnosis 05/20/2021 03:06:22 PM EDT [facility] K57.92 Diverticulitis of intestine, part unspecified, without perforation or abscess without bleeding Diverticulitis of intestine, part unspec Diagnosis 05/20/2021 03:06:22 PM EDT [facility] I50.31 Acute diastolic (congestive) heart failu re Acute diastolic (congestive) heart failu Diagnosis 05/20/2021 03:06:22 PM EDT [facility] E78.2 Mixed hyperlipidemia Mixed hyperlipidemia Diagnosis 05/20/2021 03:06:22 PM EDT [facility] I25.10 Atherosclerotic heart diseas e of [place] coronary artery without angina pectoris Atherosclerotic heart disease of [place] Diagnosis 05/20/2021 03:06:22 PM EDT [facility] J45.998 Other asthma OTHER ASTHMA Diagnosis 03/09/2021 02:28:00 P M EDT [facility] Z20.822 CONTACT WITH AND (SUSPECTED) EXPOSURE TO COVID-19 CONTACT WITH AND (SUSPECTED) EXPOSURE TO COVID-19 Diagnosis 03/04/2021 10:58:00 AM EDT [facility] G47.33 Obstructive sleep apnea syndrome Obstructive sle ep apnea syndrome Problem 08/05/2021 12:00:00 AM EDT MED[facility] ([facility], ) R73.03 Pre-diabetes Pre-diabetes [id number] 05/20/2021 12:00:00 A M EDT [facility] Z01.818 Preop examination Preop examination [id number] 05/20/2021 12:00:00 AM EDT [facility] E78.2 Mixed hyperlipidemia Mixed hyperlipidemia [id number] 05/20/2021 12:00:00 AM EDT [facility] I10 Essential hypertension Essential hypertension Problem 03/02/2021 12:00:00 AM EDT MEDENT ([facility]) G89.29 Chronic pain Other chronic pain Problem 09/21/2020 12:0 0:00 AM EST eCW1 ([facility]) R73.03 Prediabetes Prediabetes Problem 08/31/2020 12:00:00 AM EDT MEDENT ([facility]) Surgeries/Procedures Procedure Description Date Indications Data Source(s) OFFICE OUTPATIENT VISIT 15 MINUTES 09/09/2021 12:00:00 AM EDT MEDJOSÉ MIGUEL ([facility], ) OFFICE OUTPATIENT VISIT 25 MINUTES 09/01/2021 12:00:00 AM EDT MED[facility] ([facility]) OFFICE OUTPATIENT NEW 30 MINUTES 08/05/2021 12:00:00 A M EDT MED[facility] ([facility], ) OFFICE OUTPATIENT VISIT 15 MINUTES 06/02/2021 12:00:00 AM EDT [facility] ([facility]) ECG ROUTINE ECG W/LEAST 12 LDS W/I&R <td>POCT AMB EKG</td><td>Routine</td><td>05/20/2021 4:25 PM EDT</td><td> Coronary artery disease involving [place] coronary artery of [place] heart without angina pectoris Preop examination</td><td> </td> 05/20/2021 04:25:00 PM EDT Preop examinationCoronary artery disease involving [place] coronary artery of [place] heart without angina pectoris [facility] Preop examination Coronary artery disease involving [place] coronary artery of [place] heart without angina pectoris OFFICE OUTPATIENT VISIT 25 MINUTES 05/20/2021 12:00:00 AM EDT MED[facility] ([facility]) Physical Therapy Eval - Low Complexity 04/21/2021 12:0 0:00 AM EDT [facility] ([facility]) OFFICE OUTPATIENT VISIT 25 MINUTES 04/15/2021 12:00:00 AM EDT MED[facility] ([facility]) OFFICE OUTPATIENT VISIT 15 MINUTES 04/13/2021 12:00:00 AM EDT MED[facility] ([facility]) OFFICE OUTPATIENT VISIT 25 MINUTES 03/30/2021 12:00:00 AM EDT MED[facility] ([facility]) ARTHROCENTESIS ASPIR&/INJECTION MAJOR JT/BURSA 12:00:00 AM EDT [facility] ([facility]) OFFICE OUTPATIENT VISIT 25 MINUTES 03/02/2021 12:00:00 AM EDT [facility] ([facility]) OFFICE OUTPATIENT VISIT 25 MINUTES 03/02/2021 12:00:00 AM EDT MED[facility] ([facility]) MRI Lower Extremity Any Joint 02/18/2021 12:00:00 AM E DT MED[facility] ([facility]) OFFICE OUTPATIENT VISIT 25 MINUTES 02/03/2021 12:00:00 AM EDT [facility] ([facility]) POCT AMB EKG <td>POCT AMB EKG</td><td>Ralph silverman</td><td>02/02/2021 4:46 PM EDT</td><td> Coronary artery disease involving [place] coronary artery of [place] heart without angina pectoris</td><td> </td> 02/02/2021 08:46:00 PM EDT Coronary artery disease involving [place] coronary artery of [place] heart without angina pectoris [facility] Coronary artery disease involving [place] coronary artery of [place] heart without angina pectoris OFFICE OUTPATIENT VISIT 15 MINUTES 01/18/2021 12:00:00 AM EST [facility] ([facility]) OFFICE OUTPATIENT VISIT 25 MINUTES 12/01/2020 12:00:00 AM EST [facility] ([facility]) Pain Procedure Log 09/21/2020 12:00:00 AM EST eCW1 ([facility]) HEMOGLOBIN GLYCOSYLATED A1C <td>HEMOGLOBIN A1C</td><td>Routine</td><td>08/31/2020</td><td></td><td> </td> 08/31/2020 12:00:00 AM EDT [facility] Medication: [place] Tablet 5mg/325mg Orally (Hydrocodone/Aceta minophen) 08/26/2020 12:00:00 AM EDT eCW1 ([facility]) Unclassified drugs 08/26/2020 12:00:00 AM EDT eCW1 ([facility]) Results ID Date Data Source [id number] 05/20/2021 05:27:00 PM EDT [facility] ([facility]) Name Value Range Interpretation Code Description Data Tabby rce(s) Supporting Document(s) aPTT in Platelet poor plasma by Coagulation assay 28.7 s 24.2-38.5 Normal (applies to non-numeric results) [facility] ([facility]) ID Date Data Source [id number] 05/20/2021 05:27:[address] [facility]) Name Value Range Interpretation Code Description Data Tabby rce(s) Supporting Document(s) Prothrombin Time 11.9 s 12.5-14.3 Normal (applies to non-numeric results) [facility] ([facility]) Inr 0.86 Normal (applies to non-numeric resul ts) [facility] ([facility]) THERAPUTIC HUMAN INR VALUES INDICATIONS NORMAL RANGES PROPHYLAXIS/TREATMENT OF: VENOUS THROMBOSIS 2.0-3.0 PULMONARY EMBOLISM 2.0-3.0 PREVENTION OF SYSTEMIC EMBOLISM FROM: TISSUE HEART VALVES 2.0-3.0 ACUTE MYOCARDIAL INFARCTION 2.0-3.0 VALVULAR HEART DISEASE 2.0-3.0 ATRIAL FIBRILLATION 2.0-3.0 MECHANICAL VALVES(HIGH RISK) 2.5-3.5 RECURRENT MYOCARDIAL INFARCTION 2.5-3.5 ID Date Data Source [id number] 05/20/2021 05:27:00 PM EDT [facility] ([facility]) Name Value Range Interpretation Code Description Data Tabby rce(s) Supporting Document(s) Hemoglobin A1c 5.7 % Normal (applies to non-numeric r esults) [facility] ([facility]) <content>REFERENCE RANGES:</content><br/ ><content></content>
<content><=5.6% NORMAL</content>
<content>5.7-6.4% SUGGESTS IMPAIRED GLUCOSE METABOLISM/PREDIABETIC</content>
<content>>= 6.5% ABNORMAL</content>
<content></content> Estimated Average Glucose 117 mg/dL 60-110 Above high normal [facility] ([facility]) ID Date Data Source [id number] 05/20/2021 05:27:00 PM EDT [facility] ([facility]) Name Value Range Interpretation Code Description Data Tabby rce(s) Supporting Document(s) Red Blood Count 4.07 10 4.30-6.10 Below low normal [facility] ([facility]) Hemoglobin 12.8 g/dL 13.5-17.5 Below low normal [facility] ( [facility]) White Blood Count 5.5 10 4.0-10.0 Normal (applies to non-numeri c results) [facility] ([facility]) Mean Corpuscular Volume 95.3 fl 80.0-96.0 Normal ( applies to non-numeric results) [facility] ([facility]) Hematocrit 38.8 % 42.0-52.0 Below low normal [facility] ( [facility]) Red Cell Distribution Width 12.5 % 11.5-14.5 Norm al (applies to non-numeric results) [facility] ([facility]) Mean Corpuscular Hemoglobin 31.4 pg 27.0-33.0 Norm al (applies to non-numeric results) [facility] ([facility]) Mean Corpuscular HGB Conc 33.0 g/dL 32.0-36.5 Normal (applies to non-numeric results) [facility] ([facility]) Neutrophils % 56.8 % 36.0-66.0 Normal (applies to non-numeric re sults) [facility] ([facility]) Platelet Count, Automated 218 10 150-450 Normal (applies to non-numeric results) [facility] ([facility]) Lymph % 21.8 % 24.0-44.0 Below low normal [facility] ( [facility]) Baso % 0.4 % 0.0-1.0 Normal (applies to non-numeric resul ts) [facility] ([facility]) Eos % 11.2 % 0.0-3.0 Above high normal [facility] ([facility]) Br[place]ley % 9.4 % 2.0-8.0 Above high normal [facility] ([facility]) Immature Granulocyte % 0.4 % 0-3.0 Normal (applies to non-n umeric results) [facility] ([facility]) Nucleated Red Blood Cell % 0.0 % 0-0 Normal (applies to n on-numeric results) [facility] ([facility]) Lymph # 1.2 10 1.5-5.0 Below low normal [facility] ( [facility]) Neutrophils # 3.2 10 1.5-8.5 Normal (applies to non-numeric re sults) [facility] ([facility]) Br[place]ley # 0.5 10 0.0-0.8 Normal (applies to non-numeric resul ts) [facility] ([facility]) Baso # 0.0 10 0.0-0.2 Normal (applies to non-numeric resul ts) [facility] ([facility]) Eos # 0.6 10 0.0-0.5 Above high normal [facility] ([facility]) ID Date Data Source [id number] 05/20/2021 05:27:00 PM EDT [facility] ([facility]) Name Value Range Interpretation Code Description Data Tabby rce(s) Supporting Document(s) Glucose, Fasting 73 mg/dL 70-100 Normal (applies to non-numeric results) [facility] ([facility]) Blood Urea Nitrogen 11 mg/dL 7-18 Normal (applies to non-nume shana results) [facility] ([facility]) Glomerular Filtration Rate Laboratory test result Normal (applies to non- numeric results) [facility] ([facility]) <content>Units are mL/min/1.73 m2</content>
<content></content>
<content>Chronic Kidney Disease Staging per NKF:</content>
<content></content>
<content>Stage I & II GFR >=60 Normal to Mildly Decreased</content>
<content>Stage III GFR 30- 59 Moderately Decreased</content>
<content>Stage IV GFR 15-29 Severely Decreased</content>
<content>Stage V GFR <15 Very Little GFR Left</content>
<content>ESRD GFR <15 on DIAMOND DIE MAKER</content>
<content></content> Creatinine For GFR 0.78 mg/dL 0.70-1.30 Normal (applies to non -numeric results) [facility] ([facility]) Potassium Serum 4.3 meq/L 3.5-5.1 Normal (applies to non-numeric results) [facility] ([facility]) Sodium Level 141 meq/L 136-145 Normal (applies to non-numeric res ults) [facility] ([facility]) Carbon Dioxide Level 25 meq/L 21-32 Normal (applies to non-num dipika results) [facility] ([facility]) Anion Gap 7 meq/L 8-16 Below low normal [facility] ( [facility]) Chloride Level 109 meq/L 98-107 Above high normal [facility] ([facility]) Calcium Level 10.3 mg/dL 8.8-10.2 Above high normal [facility] ([facility]) Ast/Sgot 15 U/L 7-37 Normal (applies to non-numeric resul ts) [facility] ([facility]) Alkaline Phosphatase 69 U/L 45-117 Normal (applies to non-num dipika results) [facility] ([facility]) Alt/SGPT 32 U/L 12-78 Normal (applies to non-numeric resul ts) [facility] ([facility]) Albumin 3.7 GM/DL 3.2-5.2 Normal (applies to non-numeric resul ts) [facility] ([facility]) Bilirubin,Total 0.9 mg/dL 0.2-1.0 Normal (applies to non-numeric results) [facility] ([facility]) Total Protein 6.8 GM/DL 6.4-8.2 Normal (applies to non-numeric re sults) [facility] ([facility]) Albumin/Globulin Ratio 1.2 Normal (applies to non-n umeric results) [facility] ([facility]) ID Date Data Source [id number] 03/05/2021 02:15:00 PM EDT [facility] FAX TO Name Value Range Interpretation Code Description Data Tabby rce(s) Supporting Document(s) COVID19 RHEONIX Negative NEGATIVE N [facility] The Rheonix COVID-19 MDx Assay is an end point RT-PCR assayintended for the qualitative detection of nucleic acid [id number] virus. Positive results are indicative of thepresence of SARS-CoV-2 RNA; clinical correlation withpatient history and other diagnostic information isnecessary to determine patient infection status. Negativeresults do not preclude SARS-CoV-2 infection and should notbe used as the sole basis for patient management decisions. The Rheonix MDx Assay is only for use under the Food andDrug Administration's Emergency Use Authorization. ID Date Data Source [id number] 11/25/2020 12:00:00 PM EST [facility] Name Value Range Interpretation Code Description Data Tabby rce(s) Supporting Document(s) SARS coronavirus 2 RNA Not Detected [facility] This lab was ordered by [facility] and reported by [facility]. ID Date Data Source [id number] 08/31/2020 05:15:00 PM EDT [facility] ([facility]) Name Value Range Interpretation Code Description Data Tabby rce(s) Supporting Document(s) Calcidiol [Mass/volume] in Serum or Plasma 33.9 ng/mL 30.0- 100.0 Normal (applies to non-numeric results) [facility]) ID Date Data Source [id number] 08/31/2020 05:15:00 PM EDT [facility] ([facility]) Name Value Range Interpretation Code Description Data Tabby rce(s) Supporting Document(s) Hemoglobin A1c 6.0 % Normal (applies to non-numeric r esults) [facility] ([facility]) <content>REFERENCE RANGES:</content><br/ ><content></content>
<content><=5.6% NORMAL</content>
<content>5.7-6.4% SUGGESTS IMPAIRED GLUCOSE METABOLISM/PREDIABETIC</content>
<content>>= 6.5% ABNORMAL</content>
<content></content> Estimated Average Glucose 126 mg/dL 60-110 Above high normal [facility]) ID Date Data Source [id number] 08/31/2020 05:15:[address] [facility]) Name Value Range Interpretation Code Description Data Tabby rce(s) Supporting Document(s) Prostate specific Ag [Mass/volume] in Serum or Plasma 3.07 ng/mL Normal (applies to non-numeric results) [facility]) The PSA assay is performed on the Share0ta analyzer by [employer] sandwich chemiluminescent immunoassay and should not be compared interchangeably with other methods. It should not be used alone as a screening test or diagnosis for the presence or absence of malignant disease. Predictions of disease recurrence should not be based solely on values obtained from serial patient serum values. ID Date Data Source [id number] 08/31/2020 05:15:[address] [facility]) Name Value Range Interpretation Code Description Data Tabby rce(s) Supporting Document(s) Triglycerides Level 128 mg/dL Normal (applies to non-nume shana results) [facility] ([facility]) HDL Cholesterol 72 mg/dL Normal (applies to non-numeric results) [facility] ([facility]) Cholesterol Level 155 mg/dL Normal (applies to non-numeri c results) [facility]) LDL Cholesterol 57 mg/dL Normal (applies to non-numeric results) [facility]) Non-HDL-C 83 mg/dL Normal (applies to non-numeric resul ts) [facility] ([facility]) Cholesterol Risk Ratio 2.152 Normal (applies to non-n umeric results) [facility] ([facility]) ID Date Data Source [id number] 08/31/2020 05:15:00 PM EDT [facility] ([facility]) Name Value Range Interpretation Code Description Data Tabby rce(s) Supporting Document(s) Glucose, Fasting 82 mg/dL 70-100 Normal (applies to non-numeric results) [facility] ([facility]) Blood Urea Nitrogen 15 mg/dL 7-18 Normal (applies to non-nume shana results) [facility] ([facility]) Glomerular Filtration Rate Laboratory test result Normal (applies to non- numeric results) [facility] ([facility]) <content>Units are mL/min/1.73 m2</content>
<content></content>
<content>Chronic Kidney Disease Staging per NKF:</content>
<content></content>
<content>Stage I & II GFR >=60 Normal to Mildly Decreased</content>
<content>Stage III GFR 30- 59 Moderately Decreased</content>
<content>Stage IV GFR 15-29 Severely Decreased</content>
<content>Stage V GFR <15 Very Little GFR Left</content>
<content>ESRD GFR <15 on DIAMOND DIE MAKER</content>
<content></content> Sodium Level 139 meq/L 136-145 Normal (applies to non-numeric res ults) [facility] ([facility]) Creatinine For GFR 0.89 mg/dL 0.70-1.30 Normal (applies to non -numeric results) [facility] ([facility]) Potassium Serum 4.8 meq/L 3.5-5.1 Normal (applies to non-numeric results) [facility] ([facility]) Carbon Dioxide Level 28 meq/L 21-32 Normal (applies to non-num dipika results) [facility] ([facility]) Chloride Level 106 meq/L 98-107 Normal (applies to non-numeric r esults) [facility] ([facility]) Calcium Level 10.4 mg/dL 8.8-10.2 Above high normal [facility] ([facility]) Anion Gap 5 meq/L 8-16 Below low normal [facility] ( [facility]) Ast/Sgot 14 U/L 7-37 Normal (applies to non-numeric resul ts) [facility] ([facility]) Alkaline Phosphatase 74 U/L 45-117 Normal (applies to non-num dipika results) [facility] ([facility]) Alt/SGPT 29 U/L 12-78 Normal (applies to non-numeric resul ts) [facility] ([facility]) Bilirubin,Total 0.8 mg/dL 0.2-1.0 Normal (applies to non-numeric results) [facility] ([facility]) Total Protein 6.7 GM/DL 6.4-8.2 Normal (applies to non-numeric re sults) [facility] ([facility]) Albumin 3.7 GM/DL 3.2-5.2 Normal (applies to non-numeric resul ts) [facility] ([facility]) Albumin/Globulin Ratio 1.2 Normal (applies to non-n umeric results) [facility] ([facility]) ID Date Data Source [id number] 08/31/2020 05:15:00 PM EDT [facility] ([facility]) Name Value Range Interpretation Code Description Data Tabby rce(s) Supporting Document(s) White Blood Count 7.1 10 4.0-10.0 Normal (applies to non-numeri c results) [facility] ([facility]) Hematocrit 41.4 % 42.0-52.0 Below low normal [facility] ( [facility]) Hemoglobin 13.7 g/dL 13.5-17.5 Normal (applies to non-numeric resul ts) [facility] ([facility]) Red Blood Count 4.28 10 4.30-6.10 Below low normal [facility] ([facility]) Mean Corpuscular Hemoglobin 32.0 pg 27.0-33.0 Norm al (applies to non-numeric results) [facility] ([facility]) Mean Corpuscular HGB Conc 33.1 g/dL 32.0-36.5 Normal (applies to non-numeric results) [facility] ([facility]) Mean Corpuscular Volume 96.7 fl 80.0-96.0 Above high normal [facility] ([facility]) Platelet Count, Automated 278 10 150-450 Normal (applies to non-numeric results) [facility] ([facility]) Red Cell Distribution Width 12.6 % 11.5-14.5 Norm al (applies to non-numeric results) [facility] ([facility]) Neutrophils % 65.1 % 36.0-66.0 Normal (applies to non-numeric re sults) [facility] ([facility]) Brantley % 9.2 % 0.0-5.0 Above high normal [facility] ([facility]) Eos % 7.5 % 0.0-3.0 Above high normal [facility] ([facility]) Lymph % 17.6 % 24.0-44.0 Below low normal [facility] ( [facility]) Baso % 0.3 % 0.0-1.0 Normal (applies to non-numeric resul ts) [facility] ([facility]) Immature Granulocyte % 0.3 % 0-3.0 Normal (applies to non-n umeric results) [facility] ([facility]) Nucleated Red Blood Cell % 0.0 % 0-0 Normal (applies to n on-numeric results) [facility] ([facility]) Neutrophils # 4.6 10 1.5-8.5 Normal (applies to non-numeric re sults) [facility] ([facility]) Lymph # 1.3 10 1.5-5.0 Below low normal [facility] ( [facility]) Eos # 0.5 10 0.0-0.5 Normal (applies to non-numeric resul ts) [facility] ([facility]) Baso # 0.0 10 0.0-0.2 Normal (applies to non-numeric resul ts) [facility] ([facility]) Brantley # 0.7 10 0.0-0.8 Normal (applies to non-numeric resul ts) [facility] ([facility]) ID Date Data Source [id number] 08/21/2020 12:00:00 PM EDT [facility] ([facility]) Name Value Range Interpretation Code Description Data Tabby rce(s) Supporting Document(s) Coronavirus 2019 Nasopharygeal Laboratory test result [facility] ([facility]) This nucleic acid amplification test was developed and its performance characteristics determined by [facility]. Nucleic acid amplification tests include PCR [...] detected) result in this assay. Performed at: [facility] [id number] Complaint Supervisor: Olivia Samson MD, Phone: [phone] Not Detected ID Date Data Source [id number] 08/21/2020 12:00:00 PM EDT [facility] Name Value Range Interpretation Code Description Data Tabby rce(s) Supporting Document(s) SARS coronavirus 2 RNA [facility] This lab was ordered by [facility] and reported by [facility]. Procedure Social History Code Duration Value Status Description Data Source(s ) Smoking 09/09/2021 12:00:00 AM EDT Never Smoked A Pipe complet ed Never Smoked A Pipe [facility] ([facility] ) Smoking 07/14/2021 02:55:48 PM EDT Never smoked tobacco (zeei jacob) completed Never smoked tobacco (finding) EDUARDO (Adan Rdz MD [facility]) Smoking 06/01/2021 12:00:00 AM EDT Patient has never smoked co mpleted Patient has never smoked [facility] ([facility]) Alcohol intake 05/20/2021 12:00:00 AM EDT Current drinker of al cohol (finding) completed Current drinker of alcohol (finding) [facility] Smoking 11/30/2020 12:00:00 AM EST Never Smoker completed Never S moker eCW1 ([facility]) Smoking 11/30/2020 12:00:00 AM EST Never Smoker completed Never S moker eCW1 ([facility]) Smoking 10/22/2020 12:00:00 AM EST Never Smoker completed Never S moker eCW1 ([facility]) Smoking 10/22/2020 12:00:00 AM EST Never Smoker completed Never S moker eCW1 ([facility]) Smoking 10/22/2020 12:00:00 AM EST Never Smoker completed Never S moker eCW1 ([facility]) Smoking 10/19/2020 12:00:00 AM EST Never Smoker completed Never S moker eCW1 ([facility]) Smoking 08/26/2020 12:00:00 AM EDT Never Smoker completed Never S moker eCW1 ([facility]) Vital Signs ID Date Data Source [id number] Name Value Range Interpretation Code Description Data Source(s) Systolic blood pressure 112 mm[Hg] 112 mm[Hg] M [facility] ([facility]) Diastolic blood pressure 62 mm[Hg] 62 mm[Hg] [facility] ([facility]) Body height 70 [in_i] 70 [in_i] [facility] ([facility]) 5'10" Heart rate 77 /min 77 /min [facility] ([facility]) Oxygen saturation in Arterial blood by Pulse oximetry 95 % 95 % [facility] ([facility]) Body weight 193.00 [lb_av] 193.00 [lb_av] [facility] ([facility]) Body mass index (BMI) [Ratio] 27.7 kg/m2 27.7 k g/m2 [facility] ([facility]) [place] body weight 166 [lb_av] 166 [lb_av] [facility] ([facility], ) Body weight 87.545 kg 87.545 kg [facility] ([facility]) Body surface area Derived from formula 2.06 m2 2.06 m2 [facility] ([facility], ) Body height 70 [in_i] 70 [in_i] [facility] ([facility], ) 5'10" Diastolic blood pressure 78 mm[Hg] 78 mm[Hg] [facility] ([facility]) Systolic blood pressure 138 mm[Hg] 138 mm[Hg] M [facility] ([facility]) Body weight 195.00 [lb_av] 195.00 [lb_av] [facility] ([facility]) Body mass index (BMI) [Ratio] 28.8 kg/m2 28.8 k g/m2 [facility] ([facility]) Heart rate 82 /min 82 /min [facility] ([facility]) Respiratory rate 20 /min 20 /min [facility] ( [facility]) Body temperature 98.2 [degF] 98.2 [degF] [facility] ([facility]) Oxygen saturation in Arterial blood by Pulse oximetry 97 % 97 % [facility] ([facility]) [place] body weight 160 [lb_av] 160 [lb_av] [facility] ([facility]) Body height 69 [in_i] 69 [in_i] [facility] ([facility]) 5'9" Diastolic blood pressure 68 mm[Hg] 68 mm[Hg] [facility] ([facility], ) Systolic blood pressure 120 mm[Hg] 120 mm[Hg] M [facility] ([facility], ) Heart rate 68 /min 68 /min [facility] ([facility], ) Oxygen saturation in Arterial blood by Pulse oximetry 98 % 98 % [facility] ([facility], ) Body height 70 [in_i] 70 [in_i] [facility] ([facility], ) 5'10" Body weight 191.00 [lb_av] 191.00 [lb_av] [facility] ([facility]) Body mass index (BMI) [Ratio] 27.4 kg/m2 27.4 k g/m2 [facility] ([facility]) [place] body weight 166 [lb_av] 166 [lb_av] [facility] ([facility]) Body weight 86.638 kg 86.638 [facility] Body surface area Derived from formula 2.05 m2 2.05 m2 [facility] ([facility]) Body weight 189.00 [lb_av] 189.00 [lb_av] [facility] ([facility]) Heart rate 87 /min 87 /min [facility] ([facility]) Respiratory rate 18 /min 18 /min [facility] ( [facility]) Body temperature 97.0 [degF] 97.0 [degF] [facility] ([facility]) Diastolic blood pressure 74 mm[Hg] 74 mm[Hg] [facility] ([facility]) Body height 69 [in_i] 69 [in_i] [facility] ([facility]) 5'9" Body mass index (BMI) [Ratio] 27.9 kg/m2 27.9 k g/m2 [facility] ([facility]) Systolic blood pressure 122 mm[Hg] 122 mm[Hg] M [facility] ([facility]) Oxygen saturation in Arterial blood by Pulse oximetry 97.0 % 97.0 % [facility] ([facility]) [place] body weight 160 [lb_av] 160 [lb_av] [facility] ([facility]) Systolic blood pressure 110 mm[Hg] 110 mm[Hg] [facility] Diastolic blood pressure 70 mm[Hg] 70 mm[Hg] [facility] Heart rate 63 /min 63 /min [facility] Body height 175.3 cm 175.3 cm [facility] Body weight 87.998 kg 87.998 kg [facility] Body mass index (BMI) [Ratio] 28.65 kg/m2 28.65 kg/m2 [facility] Oxygen saturation in Arterial blood by Pulse oximetry 98 % 98 % [facility] Heart rate 72 /min 72 /min [facility] ([facility]) Oxygen saturation in Arterial blood by Pulse oximetry 95 % 95 % [facility] ([facility]) [place] body weight 160 [lb_av] 160 [lb_av] [facility] ([facility]) Respiratory rate 18 /min 18 /min [facility] ( [facility]) Body temperature 97.9 [degF] 97.9 [degF] [facility] ([facility]) Systolic blood pressure 126 mm[Hg] 126 mm[Hg] M [facility] ([facility]) Diastolic blood pressure 72 mm[Hg] 72 mm[Hg] [facility] ([facility]) Body height 69 [in_i] 69 [in_i] [facility] ([facility]) 5'9" Body weight 194.00 [lb_av] 194.00 [lb_av] [facility] ([facility]) Body mass index (BMI) [Ratio] 28.6 kg/m2 28.6 k g/m2 [facility] ([facility]) Body temperature 96.9 [degF] 96.9 [degF] [facility] ([facility]) Body weight 182.00 [lb_av] 182.00 [lb_av] [facility] ([facility]) Body mass index (BMI) [Ratio] 27.3 kg/m2 27.3 k g/m2 [facility] ([facility]) Body height 68.5 [in_i] 68.5 [in_i] [facility] ([facility]) 5'8.50" Diastolic blood pressure 78 mm[Hg] 78 mm[Hg] [facility] ([facility]) Systolic blood pressure 120 mm[Hg] 120 mm[Hg] M [facility] ([facility]) Respiratory rate 14 /min 14 /min [facility] ( [facility]) Body height 69 [in_i] 69 [in_i] [facility] ([facility]) 5'9" Body weight 187.25 [lb_av] 187.25 [lb_av] [facility] ([facility]) Body mass index (BMI) [Ratio] 27.6 kg/m2 27.6 k g/m2 [facility] ([facility]) Heart rate 62 /min 62 /min [facility] ([facility]) Body temperature 97.8 [degF] 97.8 [degF] [facility] ([facility]) Oxygen saturation in Arterial blood by Pulse oximetry 98 % 98 % [facility] ([facility]) [place] body weight 160 [lb_av] 160 [lb_av] [facility] ([facility]) Respiratory rate 14 /min 14 /min [facility] ( [facility]) Body temperature 97.0 [degF] 97.0 [degF] [facility] ([facility]) Heart rate 56 /min 56 /min [facility] ([facility]) Oxygen saturation in Arterial blood by Pulse oximetry 96 % 96 % [facility] ([facility]) [place] body weight 160 [lb_av] 160 [lb_av] [facility] ([facility]) Systolic blood pressure 140 mm[Hg] 140 mm[Hg] M [facility] ([facility]) Diastolic blood pressure 78 mm[Hg] 78 mm[Hg] [facility] ([facility]) Body height 69 [in_i] 69 [in_i] [facility] ([facility]) 5'9" Body weight 192.25 [lb_av] 192.25 [lb_av] [facility] ([facility]) Body mass index (BMI) [Ratio] 28.4 kg/m2 28.4 k g/m2 [facility] ([facility]) Body temperature 96.9 [degF] 96.9 [degF] [facility] ([facility]) Body height 68.5 [in_i] 68.5 [in_i] MEDENT ([facility]) 5'8.50" Body mass index (BMI) [Ratio] 28.5 kg/m2 28.5 k g/m2 MEDENT ([facility]) Body weight 190.50 [lb_av] 190.50 [lb_av] MEDEN T ([facility]) Systolic blood pressure 108 mm[Hg] 108 mm[Hg] [facility] Diastolic blood pressure 70 mm[Hg] 70 mm[Hg] [facility] Heart rate 60 /min 60 /min [facility] Body weight 87.998 kg 87.998 kg [facility] Body mass index (BMI) [Ratio] 28.65 kg/m2 28.65 kg/m2 [facility] Oxygen saturation in Arterial blood by Pulse oximetry 98 % 98 % [facility] Oxygen saturation in Arterial blood by Pulse oximetry 94 % 94 % MEDENT ([facility]) [place] body weight 160 [lb_av] 160 [lb_av] MEDEN T ([facility]) Systolic blood pressure 132 mm[Hg] 132 mm[Hg] M EDENT ([facility]) Diastolic blood pressure 70 mm[Hg] 70 mm[Hg] MEDENT ([facility]) Body height 69 [in_i] 69 [in_i] MEDENT ([facility]) 5'9" Body weight 189.12 [lb_av] 189.12 [lb_av] MEDEN T ([facility]) Body mass index (BMI) [Ratio] 27.9 kg/m2 27.9 k g/m2 MEDENT ([facility]) Heart rate 74 /min 74 /min MED[facility] ([facility]) Respiratory rate 18 /min 18 /min MED[facility] ( [facility]) Body temperature 98.4 [degF] 98.4 [degF] MEDENT ([facility]) Body mass index (BMI) [Ratio] 27.8 kg/m2 27.8 k g/m2 MEDENT ([facility]) Body temperature 98.0 [degF] 98.0 [degF] MEDENT ([facility]) Oxygen saturation in Arterial blood by Pulse oximetry 98 % 98 % MED[facility] ([facility]) [place] body weight 160 [lb_av] 160 [lb_av] MEDEN T ([facility]) Heart rate 75 /min 75 /min MEDENT ([facility]) Respiratory rate 18 /min 18 /min MEDENT ( [facility]) Systolic blood pressure 140 mm[Hg] 140 mm[Hg] M EDENT ([facility]) Diastolic blood pressure 80 mm[Hg] 80 mm[Hg] MEDENT ([facility]) Body height 69 [in_i] 69 [in_i] MEDENT ([facility]) 5'9" Body weight 188.25 [lb_av] 188.25 [lb_av] MEDEN T ([facility]) Body weight 188.8 [lb_av] 188.8 [lb_av] eCW1 ([facility]) Body height 59 [in_i] 59 [in_i] eCW1 ([facility]) Body mass index (BMI) [Ratio] 38.13 kg/m2 38.13 kg/m2 eCW1 ([facility]) Heart rate 86 /min 86 /min eCW1 ([facility]) Respiratory rate 18 /min 18 /min eCW1 ([facility]) Body temperature 96.7 [degF] 96.7 [degF] eCW1 ( [facility]) Systolic blood pressure 117 mm[Hg] 117 mm[Hg] e CW1 ([facility]) Diastolic blood pressure 70 mm[Hg] 70 mm[Hg] eCW1 ([facility]) Body mass index (BMI) [Ratio] 38.37 kg/m2 38.37 kg/m2 eCW1 ([facility]) Body weight 190 [lb_av] 190 [lb_av] eCW1 ([facility]) Systolic blood pressure 109 mm[Hg] 109 mm[Hg] e CW1 ([facility]) Body height 59 [in_i] 59 [in_i] eCW1 ([facility]) Heart rate 77 /min 77 /min eCW1 ([facility]) Respiratory rate 18 /min 18 /min eCW1 ([facility]) Body temperature 97.6 [degF] 97.6 [degF] eCW1 ( [facility]) Diastolic blood pressure 61 mm[Hg] 61 mm[Hg] eCW1 ([facility]) Body weight 190 [lb_av] 190 [lb_av] eCW1 ([facility]) Heart rate 75 /min 75 /min eCW1 ([facility]) Body mass index (BMI) [Ratio] 38.37 kg/m2 38.37 kg/m2 eCW1 ([facility]) Body height 59 [in_i] 59 [in_i] eCW1 ([facility]) Diastolic blood pressure 73 mm[Hg] 73 mm[Hg] eCW1 ([facility]) Respiratory rate 18 /min 18 /min eCW1 ([facility]) Body temperature 98.4 [degF] 98.4 [degF] eCW1 ( [facility]) Systolic blood pressure 117 mm[Hg] 117 mm[Hg] e CW1 ([facility]) Body weight 194.2 [lb_av] 194.2 [lb_av] eCW1 ([facility]) Body height 59 [in_i] 59 [in_i] eCW1 ([facility]) Body mass index (BMI) [Ratio] 39.22 kg/m2 39.22 kg/m2 eCW1 ([facility]) Heart rate 71 /min 71 /min eCW1 ([facility]) Respiratory rate 18 /min 18 /min eCW1 ([facility]) Body temperature 98.1 [degF] 98.1 [degF] eCW1 ( [facility]) Systolic blood pressure 107 mm[Hg] 107 mm[Hg] e CW1 ([facility]) Diastolic blood pressure 69 mm[Hg] 69 mm[Hg] eCW1 ([facility]) Diastolic blood pressure 76 mm[Hg] 76 mm[Hg] MEDENT ([facility]) Systolic blood pressure 136 mm[Hg] 136 mm[Hg] M EDENT ([facility]) Body temperature 97.8 [degF] 97.8 [degF] MEDENT ([facility]) Body height 69 [in_i] 69 [in_i] MEDENT ([facility]) 5'9" [place] body weight 160 [lb_av] 160 [lb_av] MEDEN T ([facility]) Oxygen saturation in Arterial blood by Pulse oximetry 97 % 97 % [facility] ([facility]) Body mass index (BMI) [Ratio] 29.1 kg/m2 29.1 k g/m2 MEDENT ([facility]) Body weight 197.38 [lb_av] 197.38 [lb_av] MEDEN T ([facility]) Heart rate 72 /min 72 /min [facility] ([facility]) Respiratory rate 18 /min 18 /min [facility] ( [facility]) Body weight 194.6 [lb_av] 194.6 [lb_av] eCW1 ([facility]) Body height 59 [in_i] 59 [in_i] eCW1 ([facility]) Body mass index (BMI) [Ratio] 39.30 kg/m2 39.30 kg/m2 eCW1 ([facility]) Heart rate 76 /min 76 /min eCW1 ([facility]) Respiratory rate 18 /min 18 /min eCW1 ([facility]) Body temperature 98.5 [degF] 98.5 [degF] eCW1 ( [facility]) Systolic blood pressure 106 mm[Hg] 106 mm[Hg] e CW1 ([facility]) Diastolic blood pressure 61 mm[Hg] 61 mm[Hg] eCW1 ([facility]) Patient Treatment Plan of Care Planned Activity Planned Date Details Description Data Source (s) ezetimibe 10 MG Oral Tablet 05/20/2021 12:00:00 AM EDT [facility] clopidogrel 75 MG Oral Tablet 10/30/2019 12:00:00 AM EST [facility] meloxicam 7.5 MG Oral Tablet [facility] fluticasone (FLONASE) 50 MCG/ACT nasal spray [facility] Fexofenadine hydrochloride 180 MG Oral Tablet [facility] Calcium Carbonate 500 MG Chewable Tablet [facility] Melatonin 1 MG Oral Capsule [facility] Acetaminophen 500 MG Oral Tablet [facility]
== END 2021-10-14 23:52 | disposition left against medical advice (07) ==
LOC: M ED 18:55
DX: Z53.21 Procedure and treatment not carried out due to patient leaving prior to being seen by health care provider (principal)

== ENCOUNTER → 2021-10-17 | Outpatient (REF) | payer OTHER | LOC: M LAB REF 17:29 | PROVIDERS: ATTEND Physician Assistant | DX: J20.9 Acute bronchitis, unspecified (principal) ==

== ENCOUNTER → 2021-10-25 | Outpatient (CLI) | payer OTHER ==
[~2021-10-25] MED LIST changes: +ISOVUE-370 76% 100ML VIAL As Ordered ONE
== END ==
LOC: M RAD 17:25
PROVIDERS: ATTEND Physician Assistant
DX: R91.8 Other nonspecific abnormal finding of lung field (principal)
CPT/HCPCS: 71260; Q9967

== ENCOUNTER → 2021-10-28 | Outpatient (CLI) | payer OTHER ==
[~2021-10-28] MED LIST changes: -ISOVUE-370 76% 100ML VIAL As Ordered ONE
== END ==
LOC: M SLEEP 20:00
PROVIDERS: ATTEND Physician Assistant
DX: G47.33 Obstructive sleep apnea (adult) (pediatric) (principal)

== ENCOUNTER → 2022-02-07 | Outpatient (CLI) | payer OTHER | LOC: M RAD 14:48 | PROVIDERS: ATTEND Nurse Practitioner Adult Health | DX: M25.531 Pain in right wrist (principal); M79.641 Pain in right hand ==

== ENCOUNTER → 2022-03-08 | Outpatient (CLI) | payer OTHER ==
[~2022-03-08] MED LIST changes: -ACET1TAB16 PO; +ACET300T48 PO
[2022-03-08 14:55] LABS: BASO % 0.2 % (0.0-1.0); EOS # 0.4 10^3/uL (0.0-0.5); HEMATOCRIT 41.4 % (42.0-52.0); HEMOGLOBIN 14.1 g/dl (13.5-17.5); LYMPH # 1.2 10^3/uL (1.5-5.0); LYMPH % 21.8 % (24.0-44.0); MEAN CORPUSCULAR HEMOGLOBIN 32.1 pg (27.0-33.0); MEAN CORPUSCULAR HGB CONC 34.1 g/dl (32.0-36.5); MEAN CORPUSCULAR VOLUME 94.3 fl (80.0-96.0); MONO # 0.6 10^3/uL (0.0-0.8); MONO % 11.7 % (2.0-8.0); NEUTROPHILS # 3.2 10^3/uL (1.5-8.5); NEUTROPHILS % 59.1 % (36.0-66.0); PLATELET COUNT, AUTOMATED 237 10^3/uL (150-450); RED BLOOD COUNT 4.39 10^6/uL (4.30-6.10); WHITE BLOOD COUNT 5.5 10^3/uL (4.0-10.0)
[2022-03-08 15:27] LABS: ALT/SGPT 34 U/L (12-78); BILIRUBIN,TOTAL 1.4 MG/DL (0.2-1.0); BLOOD UREA NITROGEN 19 MG/DL (7-18); CALCIUM LEVEL 11.2 MG/DL (8.8-10.2); CARBON DIOXIDE LEVEL 28 MEQ/L (21-32); CHLORIDE LEVEL 105 MEQ/L (98-107); CHOLESTEROL LEVEL 132 MG/DL (<200); CHOLESTEROL RISK RATIO 2.062 (<5); FREE T4 1.04 NG/DL (0.76-1.46); GLOMERULAR FILTRATION RATE > 60.0 (>42); GLUCOSE, FASTING 104 MG/DL (70-100); HDL CHOLESTEROL 64 MG/DL (>40); LDL CHOLESTEROL 52 MG/DL (<100); NON-HDL-C 68 MG/DL; POTASSIUM SERUM 4.3 MEQ/L (3.5-5.1); SODIUM LEVEL 138 MEQ/L (136-145); TOTAL PROTEIN 6.8 GM/DL (6.4-8.2); TRIGLYCERIDES LEVEL 81 MG/DL (<150)
[2022-03-08 15:30] LABS: TOTAL 25(OH) VITAMIN D 42.6 NG/ML (30.0-100.0)
[2022-03-08 15:36] LABS: HEMOGLOBIN A1c 5.5 %
== END ==
LOC: M LAB 14:07
PROVIDERS: ATTEND Physician Assistant
DX: I25.10 Atherosclerotic heart disease of native coronary artery without angina pectoris (principal); E78.00 Pure hypercholesterolemia, unspecified; R55 Syncope and collapse; Z12.5 Encounter for screening for malignant neoplasm of prostate
CPT/HCPCS: 36415; 80053; 80061; 82306; 83036; 84439; 84443; 85025; G0103

== ENCOUNTER → 2022-03-15 | Outpatient (CLI) | payer OTHER ==
[2022-03-15 14:34] LABS: BASO % 0.4 % (0.0-1.0); EOS # 0.5 10^3/uL (0.0-0.5); EOS % 8.8 % (0.0-3.0); HEMATOCRIT 41.3 % (42.0-52.0); HEMOGLOBIN 13.8 g/dl (13.5-17.5); LYMPH # 1.3 10^3/uL (1.5-5.0); LYMPH % 22.8 % (24.0-44.0); MEAN CORPUSCULAR HEMOGLOBIN 31.4 pg (27.0-33.0); MEAN CORPUSCULAR HGB CONC 33.4 g/dl (32.0-36.5); MEAN CORPUSCULAR VOLUME 93.9 fl (80.0-96.0); MONO # 0.6 10^3/uL (0.0-0.8); MONO % 11.5 % (2.0-8.0); NEUTROPHILS # 3.1 10^3/uL (1.5-8.5); NEUTROPHILS % 56.1 % (36.0-66.0); PLATELET COUNT, AUTOMATED 269 10^3/uL (150-450); WHITE BLOOD COUNT 5.5 10^3/uL (4.0-10.0)
[2022-03-15 16:03] LABS: MAGNESIUM LEVEL 2.2 MG/DL (1.8-2.4)
[2022-03-15 16:19] LABS: PTH INTACT 113.6 PG/ML (18.5-88.0)
== END ==
LOC: M LAB 13:41
PROVIDERS: ATTEND Physician Assistant
DX: E83.52 Hypercalcemia (principal); I10 Essential (primary) hypertension; R73.03 Prediabetes

== ENCOUNTER → 2022-04-23 | Outpatient (CLI) | payer OTHER | LOC: M LABSMTC 11:18 | PROVIDERS: ATTEND Anesthesiology | DX: Z01.818 Encounter for other preprocedural examination (principal); Z11.52 Encounter for screening for COVID-19 ==

== ENCOUNTER 2022-04-26 06:00 | Day surgery (SDC) | payer OTHER ==
[~2022-04-26] VITALS: Ht 175.3 cm; Wt 87.1 kg
[~2022-04-26 06:00] MED LIST changes: +EZET10TA21 PO; +POLY30DR2 OP; +TRAZ-186 PO; +VITA200016 PO
[2022-04-26] MEDS ORDERED: LIDOCAINE W/EPINEPHRINE 1% 20ML VIAL XX ONE (06:55)
[2022-04-26] MEDS ORDERED: SODIUM BICARBONATE 8.4% INJ 50MEQ 50 ML VIAL XX ONE (06:55)
[2022-04-26] MEDS ORDERED: TRAM50TA2 PO (08:10)
[2022-04-26 08:25] VITALS: BP 131/77
== END 2022-04-26 08:25 | disposition home or self-care (01) ==
LOC: M SDC 06:00
PROVIDERS: ATTEND Orthopaedic Surgery Hand Surgery
DX: M65.4 Radial styloid tenosynovitis [de Quervain] (principal); I25.2 Old myocardial infarction; I10 Essential (primary) hypertension; Z98.61 Coronary angioplasty status; J45.909 Unspecified asthma, uncomplicated; K57.92 Diverticulitis of intestine, part unspecified, without perforation or abscess without bleeding; Z79.51 Long term (current) use of inhaled steroids; Z79.82 Long term (current) use of aspirin; Z79.02 Long term (current) use of antithrombotics/antiplatelets; Z79.899 Other long term (current) drug therapy

== ENCOUNTER → 2022-05-04 | Outpatient (CLI) | payer OTHER ==
[~2022-05-04] MED LIST changes: +TRAM50TA2 PO
[2022-05-04 14:50] LABS: TOTAL PROTEIN 6.9 GM/DL (6.4-8.2)
== END ==
LOC: M PLALAB 11:57
PROVIDERS: ATTEND Internal Medicine Endocrinology, Diabetes & Metabolism
DX: E83.52 Hypercalcemia (principal)

== ENCOUNTER → 2022-05-08 | Outpatient (REF) | payer OTHER ==
[2022-05-08 17:03] LABS: CALCIUM, URINE 12.2 MG/DL
[2022-05-08 18:17] LABS: CALCIUM, 24 HOUR URINE 134.2 MG/24HR (42-353)
== END ==
LOC: M LAB REF 15:01
PROVIDERS: ATTEND Internal Medicine Endocrinology, Diabetes & Metabolism
DX: E83.52 Hypercalcemia (principal)

== ENCOUNTER → 2022-05-16 | Outpatient (CLI) | payer OTHER | LOC: M LABSMTC 09:25 | PROVIDERS: ATTEND Anesthesiology | DX: Z01.818 Encounter for other preprocedural examination (principal); Z11.52 Encounter for screening for COVID-19 ==

== ENCOUNTER 2022-05-17 08:34 | Day surgery (SDC) | payer OTHER ==
[~2022-05-17] VITALS: Ht 177.8 cm; Wt 88.5 kg
[~2022-05-17 08:34] MED LIST changes: +LIDOCAINE W/EPINEPHRINE 1% 20ML VIAL ID ONE; +SODIUM BICARBONATE 8.4% INJ 50MEQ 50 ML VIAL ID ONE
[2022-05-17] MEDS ORDERED: BACITRACIN OINTMENT 30GM TUBE As Ordered ONE (10:03)
[2022-05-17 11:15] VITALS: BP 165/92
== END 2022-05-17 11:15 | disposition home or self-care (01) ==
LOC: M SDC 08:34
PROVIDERS: ATTEND Orthopaedic Surgery Hand Surgery
DX: M65.4 Radial styloid tenosynovitis [de Quervain] (principal)

== ENCOUNTER 2022-12-07 13:31 | Emergency (ER) | payer OTHER ==
[~2022-12-07] VITALS: Ht 175.3 cm; Wt 94.0 kg
[~2022-12-07 13:31] MED LIST changes: -LIDOCAINE W/EPINEPHRINE 1% 20ML VIAL ID ONE; -SODIUM BICARBONATE 8.4% INJ 50MEQ 50 ML VIAL ID ONE
[2022-12-07] MEDS ORDERED: methylPREDNISolone 125MG 2ML VIAL IV ONE (13:55)
[2022-12-07 14:17] LABS: BASO % 0.3 % (0.0-1.0); EOS # 0.7 10^3/uL (0.0-0.5); EOS % 11.3 % (0.0-3.0); HEMOGLOBIN 13.7 g/dl (13.5-17.5); LYMPH # 1.2 10^3/uL (1.5-5.0); LYMPH % 20.3 % (24.0-44.0); MEAN CORPUSCULAR HEMOGLOBIN 31.4 pg (27.0-33.0); MEAN CORPUSCULAR HGB CONC 33.4 g/dl (32.0-36.5); MONO # 0.7 10^3/uL (0.0-0.8); MONO % 11.6 % (2.0-8.0); NEUTROPHILS # 3.3 10^3/uL (1.5-8.5); PLATELET COUNT, AUTOMATED 244 10^3/uL (150-450); RED BLOOD COUNT 4.36 10^6/uL (4.30-6.10); WHITE BLOOD COUNT 5.9 10^3/uL (4.0-10.0)
[2022-12-07] MEDS: IPRATROPIUM 0.5MG/ALBUTEROL 2.5MG INH SOL UD 3ML (DUONEB) NEB PRN ×2 (14:23→14:24)
[2022-12-07 14:26] LABS: ABG BASE EXCESS 0.4 (-2.0-2.0); ABG O2 SATURATION 96.1 % (95.0-99.0); ABG PARTIAL PRESSURE CO2 40.7 mmHg (35.0-45.0); ABG PARTIAL PRESSURE O2 87.9 mmHg (75.0-100.0); ABG STANDARD HCO3 24.8 MEQ/L (22.0-26.0); ABG TOTAL CO2 26.3 MEQ/L (23.0-31.0); ABG pH (ARTERIAL) 7.407 UNITS (7.350-7.450)
[2022-12-07 14:36] LABS: INR 0.89; PROTHROMBIN TIME 12.2 SECONDS (12.5-14.5)
[2022-12-07 14:37] LABS: PARTIAL THROMBOPLASTIN TIME 27.1 SECONDS (24.8-34.2)
[2022-12-07 14:39] LABS: RSV AMPLIFICATION NEGATIVE (NEGATIVE)
[2022-12-07 14:40] LABS: ALBUMIN 3.9 G/DL (3.2-5.2); ALKALINE PHOSPHATASE 74 U/L (46-116); ALT/SGPT 29 U/L (7.0-40); AST/SGOT 24 U/L (<34); BILIRUBIN,DIRECT 0.3 MG/DL (<0.4); BILIRUBIN,TOTAL 0.9 MG/DL (0.3-1.2); BLOOD UREA NITROGEN 15 MG/DL (9-23); CALCIUM LEVEL 10.9 MG/DL (8.3-10.6); CARBON DIOXIDE LEVEL 28 MMOL/L (20-31); CHLORIDE LEVEL 104 MMOL/L (98-107); CK-MB VALUE MASS < 1.0 NG/ML (<3.6); CREATININE FOR GFR 0.91 MG/DL (0.70-1.30); GLOMERULAR FILTRATION RATE > 60.0 (>42); GLUCOSE, FASTING 101 MG/DL (74-106); POTASSIUM SERUM 4.8 MMOL/L (3.5-5.1); SODIUM LEVEL 139 MMOL/L (136-145); TOTAL PROTEIN 7.1 G/DL (5.7-8.2)
[2022-12-07 14:42] LABS: THYROID STIMULATING HORMONE 1.627 uIU/ML (0.55-4.78)
[2022-12-07 14:43] LABS: FREE T4 1.38 NG/DL (0.89-1.76)
[2022-12-07 14:45] LABS: CPK CREATINE PHOSPHOKINASE 118 U/L (46-171); MB/CK RELATIVE INDEX 0.84 (< OR =4)
[2022-12-07 15:00] VITALS: BP 131/80
[2022-12-07 15:28] LABS: D-DIMER QUANT < 270 ng/ml (<500)
[2022-12-07 15:43] LABS: CK-MB VALUE MASS < 1.0 NG/ML (<3.6)
[2022-12-07 15:46] LABS: CPK CREATINE PHOSPHOKINASE 96 U/L (46-171); MB/CK RELATIVE INDEX 1.04 (< OR =4)
[2022-12-07] MEDS ORDERED: PRED20TA PO (16:08)
== END 2022-12-07 16:32 | disposition home or self-care (01) ==
LOC: M ED 13:31
DX: J45.901 Unspecified asthma with (acute) exacerbation (principal); I25.2 Old myocardial infarction; E11.9 Type 2 diabetes mellitus without complications; E78.5 Hyperlipidemia, unspecified; Z95.5 Presence of coronary angioplasty implant and graft; Z79.82 Long term (current) use of aspirin; Z79.899 Other long term (current) drug therapy

== ENCOUNTER 2023-10-11 09:52 | Day surgery (SDC) | payer OTHER ==
[~2023-10-11] VITALS: Ht 175.3 cm; Wt 89.4 kg
[~2023-10-11 09:52] MED LIST changes: +NS 1,000 ML IV ONE; +PRED20TA PO
[2023-10-11 11:26] VITALS: TEMP 97.6
[2023-10-11] MEDS ORDERED: fentaNYL 100 MCG/2 ML INJECTION As Ordered ONE (11:30)
[2023-10-11] MEDS ORDERED: propofoL 200 MG/20 ML VIAL As Ordered ONE (11:30)
[2023-10-11] MEDS ORDERED: LIDOCAINE 2% 100MG/5ML SDV (FOR ANES.) As Ordered ONE (11:30)
[2023-10-11 12:07] VITALS: BP 120/67; O2SAT 99
== END 2023-10-11 12:09 | disposition home or self-care (01) ==
LOC: M OPP 09:52
PROVIDERS: ATTEND Surgery
DX: Z86.010 Personal history of colon polyps (principal); K57.30 Diverticulosis of large intestine without perforation or abscess without bleeding; K22.2 Esophageal obstruction; K44.9 Diaphragmatic hernia without obstruction or gangrene; K30 Functional dyspepsia; G47.30 Sleep apnea, unspecified; Z99.89 Dependence on other enabling machines and devices; I25.119 Atherosclerotic heart disease of native coronary artery with unspecified angina pectoris; Z86.74 Personal history of sudden cardiac arrest; Z95.5 Presence of coronary angioplasty implant and graft; Z79.02 Long term (current) use of antithrombotics/antiplatelets; Z79.1 Long term (current) use of non-steroidal anti-inflammatories (NSAID); Z79.51 Long term (current) use of inhaled steroids; Z79.82 Long term (current) use of aspirin; Z79.891 Long term (current) use of opiate analgesic; Z79.899 Other long term (current) drug therapy
CPT/HCPCS: 43235; G0105; J3010

== ENCOUNTER → 2023-11-27 | Outpatient (CLI) | payer OTHER ==
[~2023-11-27] MED LIST changes: -NS 1,000 ML IV ONE
== END ==
LOC: M RAD 11:23
PROVIDERS: ATTEND Family Medicine
DX: M25.562 Pain in left knee (principal); M25.462 Effusion, left knee; M71.22 Synovial cyst of popliteal space [Baker], left knee; M22.42 Chondromalacia patellae, left knee

== ENCOUNTER 2024-08-02 00:05 | Emergency (ER) | payer OTHER ==
[~2024-08-02] VITALS: Ht 177.8 cm; Wt 87.9 kg
[2024-08-02 01:04] LABS: HEMATOCRIT 36.9 % (42.0-52.0); HEMOGLOBIN 12.7 g/dl (13.5-17.5); MEAN CORPUSCULAR HEMOGLOBIN 32.2 pg (27.0-33.0); MEAN CORPUSCULAR HGB CONC 34.4 g/dl (32.0-36.5); MEAN CORPUSCULAR VOLUME 93.4 fl (80.0-96.0); PLATELET COUNT, AUTOMATED 287 10^3/uL (150-450); RED BLOOD COUNT 3.95 10^6/uL (4.30-6.10); WHITE BLOOD COUNT 5.4 10^3/uL (4.0-10.0)
[2024-08-02 01:32] LABS: BLOOD UREA NITROGEN 14 MG/DL (9-23); CALCIUM LEVEL 10.5 MG/DL (8.3-10.6); CARBON DIOXIDE LEVEL 26 MMOL/L (20-31); CHLORIDE LEVEL 109 MMOL/L (98-107); CREATININE FOR GFR 0.95 MG/DL (0.70-1.30); GLOMERULAR FILTRATION RATE > 60.0 (>42); GLUCOSE, FASTING 118 MG/DL (74-106); MAGNESIUM LEVEL 1.7 MG/DL (1.8-2.4); POTASSIUM SERUM 4.5 MMOL/L (3.5-5.1); SODIUM LEVEL 140 MMOL/L (136-145)
[2024-08-02] MEDS: MAG SULF 1GM/100ML (MAG RUN) 1 GM in IV 1 EA IV ONE (02:00)
[2024-08-02] MEDS: NS 1,000 ML IV ONE (02:00)
[2024-08-02] MEDS: KETOROLAC 30 MG/ML 1ML VIAL IV ONE (02:01)
[2024-08-02 03:31] VITALS: BP 123/68; TEMP 98; O2SAT 97
== END 2024-08-02 03:15 | disposition home or self-care (01) ==
LOC: M ED 00:05
DX: E83.42 Hypomagnesemia (principal); R51.9 Headache, unspecified; R00.0 Tachycardia, unspecified; I44.1 Atrioventricular block, second degree; I25.2 Old myocardial infarction; E78.5 Hyperlipidemia, unspecified; K21.9 Gastro-esophageal reflux disease without esophagitis; G47.33 Obstructive sleep apnea (adult) (pediatric); Z79.1 Long term (current) use of non-steroidal anti-inflammatories (NSAID); Z79.51 Long term (current) use of inhaled steroids; Z79.899 Other long term (current) drug therapy
CPT/HCPCS: 70450; 80048; 83735; 85027; 93005; 96374; 96375; 99284; J1885; J3475

== ENCOUNTER → 2024-09-12 | Outpatient (CLI) | payer OTHER | LOC: M PLAIMG 13:05 | PROVIDERS: ATTEND Physician Assistant | DX: G44.52 New daily persistent headache (NDPH) (principal) ==